=== PATIENT | male | born 1955 | race Caucasian/White ===

== ENCOUNTER 2016-11-17 15:45 | Emergency (ER) | payer MEDICAID | END 2016-11-17 17:43 | disposition left against medical advice (07) | LOC: JP.ED 15:45 | DX: Z53.21 Procedure and treatment not carried out due to patient leaving prior to being seen by health care provider (principal) ==

== ENCOUNTER 2021-06-13 11:46 | Inpatient (IN) | payer MEDICARE ==
[2021-06-13] MEDS ORDERED: Acetaminophen 325 MG Tab PO PRN ×2 (12:29→17:04)
[2021-06-13] MEDS ORDERED: REMDESIVIR 200 MG in Sodium Chloride 0.9% 250 ML IV ONE ×2 (12:29→13:15)
[2021-06-13] MEDS ORDERED: Dexamethasone 4 MG/ML SDV IVPUSH SCH (12:30)
--- NOTE | 2021-06-13 12:44 | EDM.PDOC ---
ED HPI GENERAL MEDICAL PROBLEM - General Chief Complaint: Respiratory Problem Stated Complaint: MEDICAL COVID POSITIVE Time Seen by Provider: 06/13/21 12:16 Source of Information: Reports: Patient, RN Notes Reviewed History Limitations: Reports: No Limitations - History of Present Illness INITIAL COMMENTS - FREE TEXT/NARRATIVE: 66-year-old male presents emergency department today via EMS services for increasing shortness of breath, he was recently diagnosed with COVID-19 yesterday thinks he may have had a cough for couple of days however it is difficult to assess because he does have a history of interstitial lung disease from exposure at work. He is not had any fevers no nausea vomiting no chest pain. Normally does not use oxygen was found to be hypoxic by the EMS crew he remains hypoxic in the emergency department. - Related Data Allergies Allergy/AdvReac Type Severity Reaction Status Date / Time No Known Allergies Allergy Verified 06/13/21 12:04 Home Meds: Home Meds Aspirin [Low Dose Aspirin EC] 81 mg PO DAILY 04/30/14 [History] Cholecalciferol (Vitamin D3) [Vitamin D3] 1,000 units PO DAILY 04/30/14 [History] Insulin Aspart [Novolog Flexpen] 28 units SQ QID 04/30/14 [History] Insulin Glargine,Hum.Rec.Anlog [Lantus Solostar] 46 units SUBCUT QAM 04/30/14 [History] Mometasone/Formoterol [Dulera 200-5 MCG] 2 puff INH BID 04/30/14 [History] ramipriL [Altace] 5 mg PO DAILY 04/30/14 [History] Insulin Glarg,Human.Rec.Analog [Lantus Solostar] 74 unit SQ QPM 08/18/14 [History] Albuterol/Ipratropium [Combivent Respimat] 1 puff IH Q4HR PRN 04/13/21 [History] Albuterol/Ipratropium [DuoNeb 3.0-0.5 MG/3 ML] 3 ml IH Q4HR PRN 04/13/21 [History] Azelastine [Astelin Nasal Soln] 2 inhalation ANA BID 04/13/21 [History] Dulaglutide [Trulicity] 3 mg SQ .WEEKLY 04/13/21 [History] EPINEPHrine [Epipen] 0.3 mg IM ASDIRECTED 04/13/21 [History] Meclizine [Antivert] 25 mg PO TID 04/13/21 [History] Triamcinolone Acetonide [Kenalog 0.1% Crm] 1 film TOP TID PRN 04/13/21 [History] allopurinoL [Zyloprim] 100 mg PO DAILY 04/13/21 [History] rOPINIRole [Requip] 0.5 mg PO BEDTIME 04/13/21 [History] Insulin Lispro [HumaLOG] 25 unit SQ ASDIRECTED 06/13/21 [History] Past Medical History HEENT History: Reports: Impaired Vision Respiratory History: Reports: Interstitial Lung Disease, Sleep Apnea Other Respiratory History: cpap Musculoskeletal History: Reports: Back Pain, Chronic, Gout Endocrine/Metabolic History: Reports: Diabetes, Type II, Obesity/BMI 30+ - Infectious Disease History Infectious Disease History: Reports: Chicken Pox, Measles, Novel Coronavirus, Pertussis (Whooping Cough) - Past Surgical History Head Surgeries/Procedures: Reports: None HEENT Surgical History: Reports: Cataract Surgery Respiratory Surgical History: Reports: None Endocrine Surgical History: Reports: None Musculoskeletal Surgical History: Reports: Carpal Tunnel Dermatological Surgical History: Reports: None Social & Family History - Tobacco Use Tobacco Use Status *Q: Never Tobacco User Second Hand Smoke Exposure: No - Caffeine Use Caffeine Use: Reports: None - Recreational Drug Use Recreational Drug Use: No ED ROS GENERAL - Review of Systems Review Of Systems: See Below Constitutional: Reports: No Symptoms HEENT: Reports: No Symptoms Respiratory: Reports: Shortness of Breath, Cough Cardiovascular: Reports: Dyspnea on Exertion GI/Abdominal: Reports: No Symptoms ED EXAM, GENERAL - Physical Exam Exam: See Below Exam Limited By: No Limitations General Appearance: Alert, WD/WN, No Apparent Distress Respiratory/Chest: No Respiratory Distress, Lungs Clear, Normal Breath Sounds, No Accessory Muscle Use, Chest Non-Tender Cardiovascular: Regular Rate, Rhythm, No Murmur GI/Abdominal: Soft, Non-Tender Course - Vital Signs Last Recorded V/S: Last Vital Signs Temp 98.8 F 06/13/21 13:55 Pulse 79 06/13/21 13:55 Resp 35 H 06/13/21 13:55 BP 123/59 L 06/13/21 13:55 Pulse Ox 94 L 06/13/21 13:55 - Orders/Labs/Meds Orders: Active Orders 24 hr Category Date Time Status HEPATIC FUNCTION PANEL,HFP [CHEM] DAILY Lab 06/14/21 12:30 Ordered HEPATIC FUNCTION PANEL,HFP [CHEM] DAILY Lab 06/15/21 12:30 Ordered HEPATIC FUNCTION PANEL,HFP [CHEM] DAILY Lab 06/16/21 12:30 Ordered HEPATIC FUNCTION PANEL,[facility] [CHEM] DAILY Lab 06/17/21 12:30 Ordered HEPATIC FUNCTION PANEL,HFP [CHEM] DAILY Lab 06/18/21 12:30 Ordered Acetaminophen [TylenoL] Med 06/13/21 12:29 Active 650 mg PO Q4H PRN Enoxaparin [Lovenox] Med 06/13/21 12:45 Active 40 mg SUBCUT DAILY dexAMETHasone [Decadron] Med 06/13/21 12:30 Active 6 mg IVPUSH DAILY Isolation [COMM] Stat Oth 06/13/21 12:29 Ordered Medication Orders Acetaminophen (Acetaminophen 325 Mg Tab) 650 mg PO Q4H PRN PRN Reason: Fever Greater Than 101 Last Admin: 06/13/21 13:47 Dose: 650 mg Documented by: PIA Dexamethasone (Dexamethasone 4 Mg/Ml Sdv) 6 mg IVPUSH DAILY IVANA Stop: 06/22/21 09:01 Last Admin: 06/13/21 13:48 Dose: 6 mg Documented by: PIA Enoxaparin Sodium (Enoxaparin 40 Mg/0.4 Ml Syringe) 40 mg SUBCUT DAILY [facility] Last Admin: 06/13/21 13:57 Dose: 40 mg Documented by: PIA Labs: Laboratory Tests 06/13/21 06/13/21 06/13/21 Range/Units 12:40 12:40 12:40 WBC 8.6 (4.5-11.0) K/uL RBC 4.07 L (4.30-5.90) M/uL Hgb 13.2 (12.0-15.0) g/dL Hct 37.7 L (40.0-54.0) % MCV 93 (80-98) fL MCH 32 H (27-31) pg MCHC 35 (32-36) % Plt Count 171 (150-400) K/uL Neut % (Auto) 89.1 H (36-66) % Lymph % (Auto) 5.8 L (24-44) % [place] % (Auto) 4.9 (2-6) % Eos % (Auto) 0.0 L (2-4) % Baso % (Auto) 0.2 (0-1) % Sodium 133 L (140-148) mmol/L Potassium 4.7 (3.6-5.2) mmol/L Chloride 97 L (100-108) mmol/L Carbon Dioxide 24 (21-32) mmol/L Anion Gap 16.7 H (5.0-14.0) mmol/L BUN 41 H D (7-18) mg/dL Creatinine 1.8 H (0.8-1.3) mg/dL Est Cr Clr Drug Dosing 48.90 mL/min Estimated GFR (MDRD) 38 L (>60) Glucose 131 H (74-106) mg/dL Lactic Acid 1.8 (0.4-2.0) mmol/L Calcium 8.2 L (8.5-10.1) mg/dL Total Bilirubin 0.6 (0.2-1.0) mg/dL Direct Bilirubin 0.19 (0.0-0.2) mg/dL Indirect Bilirubin 0.41 AST 58 H D (15-37) U/L ALT 57 (12-78) U/L Alkaline Phosphatase 82 (46-116) U/L C-Reactive Protein 4.81 H (0.0-0.3) mg/dL Total Protein 7.5 (6.4-8.2) g/dL Albumin 3.1 L (3.4-5.0) g/dL Globulin 4.4 H (2.3-3.5) g/dL Albumin/Globulin Ratio 0.7 L (1.2-2.2) Procalcitonin ng/mL 06/13/21 Range/Units 12:40 WBC (4.5-11.0) K/uL RBC (4.30-5.90) M/uL Hgb (12.0-15.0) g/dL Hct (40.0-54.0) % MCV (80-98) fL MCH (27-31) pg MCHC (32-36) % Plt Count (150-400) K/uL Neut % (Auto) (36-66) % Lymph % (Auto) (24-44) % [place] % (Auto) (2-6) % Eos % (Auto) (2-4) % Baso % (Auto) (0-1) % Sodium (140-148) mmol/L Potassium (3.6-5.2) mmol/L Chloride (100-108) mmol/L Carbon Dioxide (21-32) mmol/L Anion Gap (5.0-14.0) mmol/L BUN (7-18) mg/dL Creatinine (0.8-1.3) mg/dL Est Cr Clr Drug Dosing mL/min Estimated GFR (MDRD) (>60) Glucose (74-106) mg/dL Lactic Acid (0.4-2.0) mmol/L Calcium (8.5-10.1) mg/dL Total Bilirubin (0.2-1.0) mg/dL Direct Bilirubin (0.0-0.2) mg/dL Indirect Bilirubin AST (15-37) U/L ALT (12-78) U/L Alkaline Phosphatase (46-116) U/L C-Reactive Protein (0.0-0.3) mg/dL Total Protein (6.4-8.2) g/dL Albumin (3.4-5.0) g/dL Globulin (2.3-3.5) g/dL Albumin/Globulin Ratio (1.2-2.2) Procalcitonin 0.46 ng/mL Meds: Medications Generic Name Dose Route Start Last Admin Trade Name Freq PRN Reason Stop Dose Admin Acetaminophen 650 mg 06/13/21 12:29 06/13/21 13:47 Acetaminophen 325 Mg Tab PO 650 mg Q4H PRN Administration Fever Greater Than 101 Dexamethasone 6 mg 06/13/21 12:30 06/13/21 13:48 Dexamethasone 4 Mg/Ml Sdv IVPUSH 06/22/21 09:01 6 mg DAILY IVANA Administration Enoxaparin Sodium 40 mg 06/13/21 12:45 06/13/21 13:57 Enoxaparin 40 Mg/0.4 Ml Syringe SUBCUT 40 mg DAILY IVANA Administration Discontinued Medications Generic Name Dose Route Start Last Admin Trade Name Freq PRN Reason Stop Dose Admin Remdesivir 200 mg/ Sodium 250 mls @ 250 mls/hr 06/13/21 13:15 06/13/21 13:51 Chloride IV 06/13/21 14:14 250 mls/hr ONETIME ONE Administration Departure - Departure Time of Disposition: 14:42 Disposition: Admitted As Inpatient 67 Condition: Fair Clinical Impression: COVID-19 - Discharge Information Referrals: PCP,None [Primary Care Provider] - Forms: ED Department Discharge Sepsis Event Note (ED) - Evaluation Sepsis Screening Result: Possible Sepsis Risk - Focused Exam Vital Signs: Vital Signs Temp Pulse Resp BP Pulse Ox 06/13/21 13:55 98.8 F 79 35 H 123/59 L 94 L 06/13/21 12:04 91 L 06/13/21 11:54 99.4 F 94 22 H 123/68 90 L 06/13/21 11:51 99.4 F 94 22 H 123/68 90 L - My Orders Last 24 Hours: My Active Orders 06/13/21 12:29 Acetaminophen [TylenoL] 650 mg PO Q4H PRN Isolation [COMM] Stat 06/13/21 12:30 dexAMETHasone [Decadron] 6 mg IVPUSH DAILY 06/13/21 12:45 Enoxaparin [Lovenox] 40 mg SUBCUT DAILY 06/14/21 12:30 HEPATIC FUNCTION PANEL,HFP [CHEM] DAILY 06/15/21 12:30 HEPATIC FUNCTION PANEL,HFP [CHEM] DAILY 06/16/21 12:30 HEPATIC FUNCTION PANEL,HFP [CHEM] DAILY 06/17/21 12:30 HEPATIC FUNCTION PANEL,HFP [CHEM] DAILY 06/18/21 12:30 HEPATIC FUNCTION PANEL,HFP [CHEM] DAILY - Assessment/Plan Last 24 Hours: My Active Orders 06/13/21 12:29 Acetaminophen [TylenoL] 650 mg PO Q4H PRN Isolation [COMM] Stat 06/13/21 12:30 dexAMETHasone [Decadron] 6 mg IVPUSH DAILY 06/13/21 12:45 Enoxaparin [Lovenox] 40 mg SUBCUT DAILY 06/14/21 12:30 HEPATIC FUNCTION PANEL,HFP [CHEM] DAILY 06/15/21 12:30 HEPATIC FUNCTION PANEL,HFP [CHEM] DAILY 06/16/21 12:30 HEPATIC FUNCTION PANEL,HFP [CHEM] DAILY 06/17/21 12:30 HEPATIC FUNCTION PANEL,HFP [CHEM] DAILY 06/18/21 12:30 HEPATIC FUNCTION PANEL,HFP [CHEM] DAILY Plan: Assessment Acuity = acute Site and laterality = viral syndrome Etiology = COVID-19 Manifestations = hypoxia Location of injury = Home Lab values = CBC unremarkable creatinine elevated 1.8 consistent with acute renal failure stage G3 B lactic acid normal 1.8 CRP elevated 4.81 procalcitonin 0.46 chest x-ray shows pneumonitis versus infiltrate Plan Call discussed case hospitalist on-call, agreed to come evaluate the patient emergency department for admission This note was dictated using [employer] voice recognition software please call with any questions on syntax or grammar.
[2021-06-13] MEDS ORDERED: Enoxaparin 40 MG/0.4 ML Syringe SUBCUT SCH (12:45)
--- NOTE | 2021-06-13 13:06 | CR ---
CHEST: Portable 06/13/2021 at 12:58 PM CLINICAL HISTORY:Respiratory failure COMPARISON:None FINDINGS: Heart size and pulmonary vascular normal. There is some patchy infiltrate in both lower lung marti. This may represent patchy pneumonia or pneumonitis. There are no pleural effusions Impression: Patchy bibasal infiltrates or pneumonitis
--- NOTE | 2021-06-13 16:12 | PCM.HP.2 ---
H&P History of Present Illness - General Date of Service: 06/13/21 Admit Problem/Dx: Admission Diagnosis/Problem Admission Diagnosis/Problem Pneumonia Source of Information: Patient, Provider History Limitations: Reports: No Limitations - History of Present Illness Initial Comments - Free Text/Narative: CC: I was so weak HPI: Colton presents to the emergency room today with weakness and shortness of breath. He has been ill for about 10 days with sinus congestion, cough and now progressive shortness of breath. Over the last 24 hours he has developed weakness and had a fall last night and another one today. He has not had much of an appetite and has had very little to eat or drink in the last couple of days. He did have a fever with a drenching sweat last night but prior to that had not had any subjective fevers or chills. He has not had nausea, vomiting, diarrhea or abdominal pain. No headache or myalgias. He is not aware of an obvious sick contact but was in [place] for an angiogram about 1 week prior to onset of symptoms. He tested positive for Covid yesterday and was prescribed doxycycline and prednisone and had 1 dose of the steroids and 2 doses of antibiotics. He has been taking his medications as prescribed. Work-up in the emergency room revealed hypoxia necessitating 2 L of supplemental oxygen. D-dimer and CRP are moderately elevated. He will be admitted for management of Covid pneumonia with hypoxic respiratory failure. - Related Data Allergies/Adverse Reactions: Allergies Allergy/AdvReac Type Severity Reaction Status Date / Time No Known Allergies Allergy Verified 06/13/21 12:04 Home Medications: Home Meds Aspirin [Low Dose Aspirin EC] 81 mg PO DAILY 04/30/14 [History] Cholecalciferol (Vitamin D3) [Vitamin D3] 1,000 units PO DAILY 04/30/14 [History] Insulin Glargine,Hum.Rec.Anlog [Lantus Solostar] 46 units SUBCUT QAM 04/30/14 [History] Mometasone/Formoterol [Dulera 200-5 MCG] 2 puff INH BID 04/30/14 [History] ramipriL [Altace] 5 mg PO DAILY 04/30/14 [History] Insulin Glarg,Human.Rec.Analog [Lantus Solostar] 74 unit SQ QPM 08/18/14 [History] Albuterol/Ipratropium [Combivent Respimat] 1 puff IH Q4HR PRN 04/13/21 [History] Albuterol/Ipratropium [DuoNeb 3.0-0.5 MG/3 ML] 3 ml IH Q4HR PRN 04/13/21 [History] Azelastine [Astelin Nasal Soln] 2 inhalation ANA BID 04/13/21 [History] Dulaglutide [Trulicity] 3 mg SQ .WEEKLY 04/13/21 [History] EPINEPHrine [Epipen] 0.3 mg IM ASDIRECTED 04/13/21 [History] Meclizine [Antivert] 25 mg PO TID 04/13/21 [History] Triamcinolone Acetonide [Kenalog 0.1% Crm] 1 film TOP TID PRN 04/13/21 [History] allopurinoL [Zyloprim] 100 mg PO DAILY 04/13/21 [History] rOPINIRole [Requip] 0.5 mg PO BEDTIME 04/13/21 [History] Clopidogrel [Plavix] 75 mg PO DAILY 06/13/21 [History] Insulin Lispro [HumaLOG] 28 unit SQ ASDIRECTED 06/13/21 [History] Past Medical History HEENT History: Reports: Impaired Vision Respiratory History: Reports: Interstitial Lung Disease, Sleep Apnea Other Respiratory History: cpap Musculoskeletal History: Reports: Back Pain, Chronic, Gout Endocrine/Metabolic History: Reports: Diabetes, Type II, Obesity/BMI 30+ - Infectious Disease History Infectious Disease History: Reports: Chicken Pox, Measles, Novel Coronavirus, Pertussis (Whooping Cough) - Past Surgical History Head Surgeries/Procedures: Reports: None HEENT Surgical History: Reports: Cataract Surgery Respiratory Surgical History: Reports: None Endocrine Surgical History: Reports: None Musculoskeletal Surgical History: Reports: Carpal Tunnel Dermatological Surgical History: Reports: None Social & Family History - Family History Cardiac: Reports: CAD (Mother) Oncologic: Reports: Other (See Below) (Dad had cancer) - Tobacco Use Tobacco Use Status *Q: Never Tobacco User Second Hand Smoke Exposure: No - Caffeine Use Caffeine Use: Reports: None - Alcohol Use Alcohol Use History: No Alcohol Use in Last Twelve Months: No - Recreational Drug Use Recreational Drug Use: No H&P Review of Systems - Review of Systems: Review Of Systems: See Below Free Text/Narrative: A complete 12 point review of systems was obtained. Pertinent positives and negatives are noted in the history of present illness. All other systems were reviewed and were negative except as noted. Exam - Exam Exam: See Below - Vital Signs Vital Signs: Last Vital Signs Temp 36.6 C 06/13/21 16:09 Pulse 72 06/13/21 16:09 Resp 17 06/13/21 16:09 BP 123/70 06/13/21 16:09 Pulse Ox 92 L 06/13/21 16:09 Weight: 119.295 kg - Exam Quality Assessment: Supplemental Oxygen General: Alert, Oriented, Cooperative. No: Mild Distress HEENT: Conjunctiva Clear. No: Mucosa Moist & Kohler, Scleral Icterus Neck: Supple, Trachea Midline. No: JVD Lungs: Normal Respiratory Effort, Crackles (Mild diffuse especially in the lower half of both lungs) Cardiovascular: Regular Rate, Regular Rhythm. No: Systolic Murmur GI/Abdominal Exam: Normal Bowel Sounds, Soft, Non-Tender, No Distention Extremities: No Pedal Edema. No: Increased Warmth Skin: Warm, Dry Neuro Extensive - Mental Status: Alert, Oriented x3, Nl Response to Commands Neuro Extensive - Motor, Sensory, Reflexes: No: Dysarthria, Abnormal Motor, Trem or Psychiatric: Alert, Normal Affect - Patient Data Lab Results Last 24 hrs: Laboratory Results - last 24 hr 06/13/21 06/13/21 06/13/21 Range/Units 12:10 12:40 12:40 WBC 8.6 (4.5-11.0) K/uL RBC 4.07 L (4.30-5.90) M/uL Hgb 13.2 (12.0-15.0) g/dL Hct 37.7 L (40.0-54.0) % MCV 93 (80-98) fL MCH 32 H (27-31) pg MCHC 35 (32-36) % Plt Count 171 (150-400) K/uL Neut % (Auto) 89.1 H (36-66) % Lymph % (Auto) 5.8 L (24-44) % [place] % (Auto) 4.9 (2-6) % Eos % (Auto) 0.0 L (2-4) % Baso % (Auto) 0.2 (0-1) % D-Dimer, Quantitative 940.71 H (0.0-500.0) ng/mL Sodium 133 L (140-148) mmol/L Potassium 4.7 (3.6-5.2) mmol/L Chloride 97 L (100-108) mmol/L Carbon Dioxide 24 (21-32) mmol/L Anion Gap 16.7 H (5.0-14.0) mmol/L BUN 41 H D (7-18) mg/dL Creatinine 1.8 H (0.8-1.3) mg/dL Est Cr Clr Drug Dosing 48.90 mL/min Estimated GFR (MDRD) 38 L (>60) Glucose 131 H (74-106) mg/dL Lactic Acid (0.4-2.0) mmol/L Calcium 8.2 L (8.5-10.1) mg/dL Total Bilirubin 0.6 (0.2-1.0) mg/dL Direct Bilirubin 0.19 (0.0-0.2) mg/dL Indirect Bilirubin 0.41 AST 58 H D (15-37) U/L ALT 57 (12-78) U/L Alkaline Phosphatase 82 (46-116) U/L C-Reactive Protein 4.81 H (0.0-0.3) mg/dL Total Protein 7.5 (6.4-8.2) g/dL Albumin 3.1 L (3.4-5.0) g/dL Globulin 4.4 H (2.3-3.5) g/dL Albumin/Globulin Ratio 0.7 L (1.2-2.2) Procalcitonin ng/mL 06/13/21 06/13/21 Range/Units 12:40 12:40 WBC (4.5-11.0) K/uL RBC (4.30-5.90) M/uL Hgb (12.0-15.0) g/dL Hct (40.0-54.0) % MCV (80-98) fL MCH (27-31) pg MCHC (32-36) % Plt Count (150-400) K/uL Neut % (Auto) (36-66) % Lymph % (Auto) (24-44) % [place] % (Auto) (2-6) % Eos % (Auto) (2-4) % Baso % (Auto) (0-1) % D-Dimer, Quantitative (0.0-500.0) ng/mL Sodium (140-148) mmol/L Potassium (3.6-5.2) mmol/L Chloride (100-108) mmol/L Carbon Dioxide (21-32) mmol/L Anion Gap (5.0-14.0) mmol/L BUN (7-18) mg/dL Creatinine (0.8-1.3) mg/dL Est Cr Clr Drug Dosing mL/min Estimated GFR (MDRD) (>60) Glucose (74-106) mg/dL Lactic Acid 1.8 (0.4-2.0) mmol/L Calcium (8.5-10.1) mg/dL Total Bilirubin (0.2-1.0) mg/dL Direct Bilirubin (0.0-0.2) mg/dL Indirect Bilirubin AST (15-37) U/L ALT (12-78) U/L Alkaline Phosphatase (46-116) U/L C-Reactive Protein (0.0-0.3) mg/dL Total Protein (6.4-8.2) g/dL Albumin (3.4-5.0) g/dL Globulin (2.3-3.5) g/dL Albumin/Globulin Ratio (1.2-2.2) Procalcitonin 0.46 ng/mL Result Diagrams: 06/13/21 12:40 06/13/21 12:40 Imaging Impressions Last 24 hrs: Chest [id number] personally reviewed-there are some subtle lower lobe patchy infiltrates. Heart size is normal. No obvious mass or effusion. Sepsis Event Note - Evaluation Sepsis Screening Result: Possible Sepsis Risk - Focused Exam Vital Signs: Vital Signs Temp Pulse Resp BP Pulse Ox 06/13/21 16:09 36.6 C 72 17 123/70 92 L 06/13/21 15:42 71 17 116/60 93 L 06/13/21 14:49 75 31 H 113/60 91 L 06/13/21 13:55 37.1 C 79 35 H 123/59 L 94 L 06/13/21 12:04 91 L 06/13/21 11:54 37.4 C 94 22 H 123/68 90 L 06/13/21 11:51 37.4 C 94 22 H 123/68 90 L *Q Meaningful Use (ADM) - VTE Risk Assess *Q Each Risk Factor Represents 1 Point: Obesity ( BMI > 25 kg/m2), Abnormal P ulmonary Function (COPD) Total Score 1 Point Risk Factors: 2 Each Risk Factor Represents 2 Points: Age 60 - 74 Years Total Score 2 Point Risk Factors: 2 Each Risk Factor Represents 3 Points: None Total Score 3 Point Risk Factors: 0 Each Risk Factor Represents 5 Points: None Total Score 5 Point Risk Factors: 0 Venous Thromboembolism Risk Factor Score *Q: 4 - Problem List (1) Pneumonia due to COVID-19 virus SNOMED Code(s): 276507975536220266 ICD Code: U07.1 - COVID-19; J12.82 - PNEUMONIA DUE TO CORONAVIRUS DISEASE 20 19 Status: Acute Current Visit: Yes (2) Acute respiratory failure with hypoxia SNOMED Code(s): 87621231, 691007660 ICD Code: J96.01 - ACUTE RESPIRATORY FAILURE WITH HYPOXIA Status: Acute Current Visit: Yes (3) Insulin dependent diabetes mellitus SNOMED Code(s): 91951444 ICD Code: WFS1266 - Status: Chronic Current Visit: Yes (4) Obesity (BMI 30.0-34.9) SNOMED Code(s): 669162338110065 ICD Code: E66.9 - OBESITY, UNSPECIFIED Status: Chronic Current Visit: Yes (5) Coronary artery disease SNOMED Code(s): 11366679 ICD Code: I25.10 - ATHSCL HEART DISEASE OF [place] CORONARY ARTERY W/O ANG PCTRS Status: Chronic Current Visit: Yes Qualifiers: Coronary Disease-Associated Artery/Lesion type: [place] artery [place] vs. transplanted heart: [place] heart Associated angina: without angina Qualified Code(s): I25.10 - Atherosclerotic heart disease of [place] coronary artery without angina pectoris Problem List Initiated/Reviewed/Updated: Yes Orders Last 24hrs: Active Orders 24 hr Category Date Time Status Patient Status Manage Transfer [TRANSFER] Routine ADT 06/13/21 16:03 Ordered Acetaminophen [TylenoL] Med 06/13/21 12:29 Active 650 mg PO Q4H PRN Enoxaparin [Lovenox] Med 06/13/21 12:45 Active 40 mg SUBCUT DAILY dexAMETHasone [Decadron] Med 06/13/21 12:30 Active 6 mg IVPUSH DAILY Isolation [COMM] Stat Oth 06/13/21 12:29 Ordered Resuscitation Status Routine Resus Stat 06/13/21 16:05 Ordered Medication Orders Acetaminophen (Acetaminophen 325 Mg Tab) 650 mg PO Q4H PRN PRN Reason: Fever Greater Than 101 Last Admin: 06/13/21 13:47 Dose: 650 mg Documented by: PIA Dexamethasone (Dexamethasone 4 Mg/Ml Sdv) 6 mg IVPUSH DAILY [facility] Stop: 06/22/21 09:01 Last Admin: 06/13/21 13:48 Dose: 6 mg Documented by: PIA Enoxaparin Sodium (Enoxaparin 40 Mg/0.4 Ml Syringe) 40 mg SUBCUT DAILY [facility] Last Admin: 06/13/21 13:57 Dose: 40 mg Documented by: PIA Assessment/Plan Comment:: ASSESSMENT AND PLAN - COVID-19 pneumonia-complicated by acute respiratory failure with hypoxia. Symptom onset roughly 10 days ago with manifestations including sinus congestion and now progressive cough and shortness of breath along with weakness. Mildly hypoxic. Fortunately CRP and D-dimer are only mildly elevated. Risk factors for progression include obesity and diabetes. He is not vaccinated. -Dexamethasone 6 mg daily (day 1) -Remdesivir x5 days -Enoxaparin every 24 hours -Recheck CRP and D-dimer every 2 to 3 days -Isolation precautions Insulin-dependent diabetes mellitus-patient normally uses combination of twice daily basal insulin and mealtime insulin. He is not eating well but he is on steroids so hopefully these will balance out his blood sugar control. -Continue regular long-acting insulin -Reduced dose of mealtime insulin until appetite improves -Medium dose sliding scale supplementation Coronary artery disease-recent stenting has improved his dyspnea some. -Continue medical management Maintenance issues - -DVT prophylaxis-enoxaparin -GI prophylaxis-not indicated -Nutrition-diabetic -Sauer catheter-not indicated CODE STATUS -full code Admission justification -this patient will be admitted for inpatient services and is medically appropriate meeting medical necessity for inpatient admission as outlined in my documentation. I reasonably expect the patient will require inpatient services that span a period time over 2 midnights. I reasonably expect this patient to be discharged or transferred within 96 hours [facility]. Disposition -I anticipate discharge home after the hospital stay Primary care physician -Dr Neeraj De Santiago M.D. - Mortality Measure Prognosis:: Good
[2021-06-13] MEDS ORDERED: Ondansetron 4 MG/2 ML SDV IV PRN (17:04)
[2021-06-13] MEDS ORDERED: Ondansetron 4 MG Tab.DIS PO PRN (17:04)
[2021-06-13] MEDS ORDERED: LORazepam 2 MG/ML SDV IVPUSH PRN (17:04)
[2021-06-13] MEDS ORDERED: Melatonin 3 MG Tab PO PRN (17:04)
[2021-06-13] MEDS ORDERED: Albuterol 8 GM Inhaler INH PRN (17:04)
[2021-06-13] MEDS ORDERED: Magnesium Hydroxide 400 MG/5 ML Susp 30 ML Cup PO PRN (17:04)
[2021-06-13] MEDS: Insulin Lispro 100 Unit/ML 3 ML KwikPen SUBCUT SCH ×3 (18:11→20:56)
[2021-06-13] MEDS: Formoterol/Mometasone 200-5 MCG 8.8 GM Inhaler IH SCH (20:59)
[2021-06-13] MEDS: rOPINIRole 0.5 MG Tab PO SCH (20:59)
[2021-06-13] MEDS: Azelastine Nasal Soln 30 ML Spray Bottle NASBOTH SCH (21:00)
[2021-06-13] MEDS: Insulin Glargine,Human Rec. Analog 100 Units/ML 3 ML Pen SUBCUT SCH (21:02)
[2021-06-13] MEDS: Magnesium Oxide 400 MG Tab PO SCH (22:01)
[2021-06-14] MEDS: Formoterol/Mometasone 200-5 MCG 8.8 GM Inhaler IH SCH ×2 (07:42→20:05)
[2021-06-14] MEDS: Azelastine Nasal Soln 30 ML Spray Bottle NASBOTH SCH ×2 (08:36→20:04)
[2021-06-14] MEDS: Clopidogrel 75 MG Tab PO SCH (08:37)
[2021-06-14] MEDS: Aspirin 81 MG Tab.EC PO SCH (08:37)
[2021-06-14] MEDS: Cholecalciferol (Vitamin D3) 25 MCG Tab PO SCH (08:38)
[2021-06-14] MEDS: Allopurinol 100 MG Tab PO SCH (08:38)
[2021-06-14] MEDS: Insulin Lispro 100 Unit/ML 3 ML KwikPen SUBCUT SCH ×7 (08:41→20:04)
[2021-06-14] MEDS: Insulin Glargine,Human Rec. Analog 100 Units/ML 3 ML Pen SUBCUT SCH ×2 (08:44→21:47)
[2021-06-14] MEDS ORDERED: Patient's Own Medication 1 Each SUBCUT SCH (10:00)
[2021-06-14] MEDS: TRULICITY 3 MG SUBCUT SCH (10:40)
[2021-06-14] MEDS: Azithromycin 250 MG Tab PO SCH (10:42)
[2021-06-14] MEDS: Dexamethasone 4 MG/ML SDV IVPUSH SCH (13:32)
[2021-06-14] MEDS: amLODIPine 5 MG Tab PO SCH (13:38)
[2021-06-14] MEDS: Montelukast 10 MG Tab PO SCH (13:38)
[2021-06-14] MEDS: Ezetimibe 10 MG Tab PO SCH (13:38)
[2021-06-14] MEDS: Metoprolol Succinate 25 MG Tab.ER PO SCH (13:38)
[2021-06-14] MEDS: Enoxaparin 40 MG/0.4 ML Syringe SUBCUT SCH (13:54)
[2021-06-14] MEDS: REMDESIVIR 100 MG in Sodium Chloride 0.9% 100 ML IV SCH (13:54)
--- NOTE | 2021-06-14 14:36 | PCM.PN ---
- General Info Date of Service: 06/14/21 Subjective Update: No acute events overnight. Feels about the same as yesterday. Short of breath especially with activity. He reports nasal congestion and postnasal drip which is the most annoying symptom. Occasional cough. Moderate elevation of blood sugars and appetite has been improving. No fevers. Requiring 4 L of oxygen. Functional Status: Reports: Pain Controlled, Tolerating Diet - Review of Systems General: Denies: Fever Pulmonary: Reports: Shortness of Breath - Patient Data Vitals - Most Recent: Last Vital Signs Temp 36.8 C 06/14/21 10:53 Pulse 93 06/14/21 13:38 Resp 22 H 06/14/21 10:53 BP 131/68 06/14/21 13:38 Pulse Ox 90 L 06/14/21 12:11 Weight - Most Recent: 119.295 kg I&O - Last 24 Hours: Intake & Output 06/13/21 06/14/21 06/14/21 22:59 06:59 14:59 Intake Total 240 1790 Balance 240 1790 Lab Results Last 24 Hours: Laboratory Results - last 24 hr 06/13/21 06/14/21 06/14/21 Range/Units 12:10 05:20 05:20 WBC 7.9 (4.5-11.0) K/uL RBC 4.01 L (4.30-5.90) M/uL Hgb 12.9 (12.0-15.0) g/dL Hct 37.0 L (40.0-54.0) % MCV 92 (80-98) fL MCH 32 H (27-31) pg MCHC 35 (32-36) % Plt Count 187 (150-400) K/uL D-Dimer, Quantitative 940.71 H (0.0-500.0) ng/mL Sodium (140-148) mmol/L Potassium (3.6-5.2) mmol/L Chloride (100-108) mmol/L Carbon Dioxide (21-32) mmol/L Anion Gap (5.0-14.0) mmol/L BUN (7-18) mg/dL Creatinine (0.8-1.3) mg/dL Est Cr Clr Drug Dosing mL/min Estimated GFR (MDRD) (>60) Glucose (74-106) mg/dL POC Glucose (74-106) mg/dL Calcium (8.5-10.1) mg/dL Total Bilirubin (0.2-1.0) mg/dL AST (15-37) U/L ALT (12-78) U/L Alkaline Phosphatase (46-116) U/L Total Protein (6.4-8.2) g/dL Albumin (3.4-5.0) g/dL Globulin (2.3-3.5) g/dL Albumin/Globulin Ratio (1.2-2.2) Procalcitonin 0.56 ng/mL 06/14/21 06/14/21 06/14/21 Range/Units 05:20 08:10 11:43 WBC (4.5-11.0) K/uL RBC (4.30-5.90) M/uL Hgb (12.0-15.0) g/dL Hct (40.0-54.0) % MCV (80-98) fL MCH (27-31) pg MCHC (32-36) % Plt Count (150-400) K/uL D-Dimer, Quantitative (0.0-500.0) ng/mL Sodium 134 L (140-148) mmol/L Potassium 4.6 (3.6-5.2) mmol/L Chloride 99 L (100-108) mmol/L Carbon Dioxide 24 (21-32) mmol/L Anion Gap 15.6 H (5.0-14.0) mmol/L BUN 40 H (7-18) mg/dL Creatinine 1.7 H (0.8-1.3) mg/dL Est Cr Clr Drug Dosing 51.78 mL/min Estimated GFR (MDRD) 41 L (>60) Glucose 242 H (74-106) mg/dL POC Glucose 196 H 233 H (74-106) mg/dL Calcium 8.0 L (8.5-10.1) mg/dL Total Bilirubin 0.5 (0.2-1.0) mg/dL AST 59 H (15-37) U/L ALT 57 (12-78) U/L Alkaline Phosphatase 80 (46-116) U/L Total Protein 7.0 (6.4-8.2) g/dL Albumin 2.7 L (3.4-5.0) g/dL Globulin 4.3 H (2.3-3.5) g/dL Albumin/Globulin Ratio 0.6 L (1.2-2.2) Procalcitonin ng/mL Med Orders - Current: Current Medications Acetaminophen (Acetaminophen 325 Mg Tab) 650 mg PO Q4H PRN PRN Reason: Pain (Mild 1-3)/fever Albuterol (Albuterol 8 Gm Inhaler) 0 gm INH Q2H PRN PRN Reason: Shortness of Breath Allopurinol (Allopurinol 100 Mg Tab) 100 mg PO DAILY [facility] Last Admin: 06/14/21 08:38 Dose: 100 mg Documented by: Amlodipine Besylate (Amlodipine 5 Mg Tab) 2.5 mg PO DAILY [facility] Last Admin: 06/14/21 13:38 Dose: 2.5 mg Documented by: Aspirin (Aspirin 81 Mg Tab.Ec) 81 mg PO DAILY [facility] Last Admin: 06/14/21 08:37 Dose: 81 mg Documented by: Azelastine HCl (Azelastine Nasal Soln 30 Ml [employer] Bottle) 0 ml NASBOTH BID [facility] Last Admin: 06/14/21 08:36 Dose: 2 spray Documented by: Azithromycin (Azithromycin 250 Mg Tab) 500 mg PO DAILY [facility] Stop: 06/18/21 09:01 Last Admin: 06/14/21 10:42 Dose: 500 mg Documented by: Benzonatate (Benzonatate 100 Mg Cap) 100 mg PO TID PRN PRN Reason: Cough Cholecalciferol (Cholecalciferol (Vitamin D3) 25 Mcg Tab) 25 mcg PO DAILY [facility] Last Admin: 06/14/21 08:38 Dose: 25 mcg Documented by: Clopidogrel Bisulfate (Clopidogrel 75 Mg Tab) 75 mg PO DAILY [facility] Last Admin: 06/14/21 08:37 Dose: 75 mg Documented by: Dexamethasone (Dexamethasone 4 Mg/Ml Sdv) 6 mg IVPUSH Q24H [facility] Stop: 06/22/21 14:01 Last Admin: 06/14/21 13:32 Dose: 6 mg Documented by: Ezetimibe (Ezetimibe 10 Mg Tab) 10 mg PO DAILY [facility] Last Admin: 06/14/21 13:38 Dose: 10 mg Documented by: Enoxaparin Sodium (Enoxaparin 40 Mg/0.4 Ml Syringe) 40 mg SUBCUT Q24H [facility] Last Admin: 06/14/21 13:54 Dose: 40 mg Documented by: Guaifenesin/Dextromethorphan (Guaifenesin/Dextromethorphan 100-10 Mg/5 Ml Soln 10 Ml Cup) 10 ml PO Q4H PRN PRN Reason: Cough Remdesivir 100 mg/ Sodium (Chloride) 100 mls @ 100 mls/hr IV Q24H [facility] Stop: 06/17/21 14:59 Last Admin: 06/14/21 13:54 Dose: 100 mls/hr Documented by: Insulin Glargine (Insulin Glargine,Human Rec. Analog 100 Units/Ml 3 Ml Pen) 74 units SUBCUT BEDTIME [facility] Last Admin: 06/13/21 21:02 Dose: 74 units Documented by: Insulin Glargine (Insulin Glargine,Human Rec. Analog 100 Units/Ml 3 Ml Pen) 46 units SUBCUT QAM [facility] Last Admin: 06/14/21 08:44 Dose: 46 units Documented by: Insulin Human Lispro (Insulin Lispro 100 Unit/Ml 3 Ml Kwikpen) 0 unit SUBCUT QIDACANDBED [facility]; Protocol Last Admin: 06/14/21 13:28 Dose: 4 units Documented by: Insulin Human Lispro (Insulin Lispro 100 Unit/Ml 3 Ml Kwikpen) 28 unit SUBCUT TIDMEALS [facility] Last Admin: 06/14/21 13:28 Dose: 28 units Documented by: Lorazepam (Lorazepam 2 Mg/Ml Sdv) 0.5 mg IVPUSH Q4H PRN PRN Reason: Nausea/Vomiting Magnesium Hydroxide (Magnesium Hydroxide 400 Mg/5 Ml Susp 30 Ml Cup) 30 ml PO Q12H PRN PRN Reason: Constipation Magnesium Oxide (Magnesium Oxide 400 Mg Tab) 400 mg PO BEDTIME [facility] Last Admin: 06/13/21 22:01 Dose: 400 mg Documented by: Melatonin (Melatonin 3 Mg Tab) 9 mg PO BEDTIME PRN PRN Reason: Sleep Metoprolol Succinate (Metoprolol Succinate 25 Mg Tab.Er) 25 mg PO DAILY [facility] Last Admin: 06/14/21 13:38 Dose: 25 mg Documented by: Mometasone Furoate/Formoterol Fumar (Formoterol/Mometasone 200-5 Mcg 8.8 Gm Inhaler) 2 puff IH BIDRT [facility] Last Admin: 06/14/21 07:42 Dose: 2 puff Documented by: Montelukast Sodium (Montelukast 10 Mg Tab) 10 mg PO DAILY [facility] Last Admin: 06/14/21 13:38 Dose: 10 mg Documented by: Ondansetron HCl (Ondansetron 4 Mg/2 Ml Sdv) 4 mg IV Q6H PRN PRN Reason: Nausea/Vomiting Ondansetron HCl (Ondansetron 4 Mg Tab.Dis) 4 mg PO Q6H PRN PRN Reason: Nausea able to take PO Pantoprazole Sodium (Pantoprazole 40 Mg Tab.Cr) 40 mg PO ACBREAKFAST [facility] Trulicity 3mg 0 each SUBCUT We@0900 [facility] Last Admin: 06/14/21 10:40 Dose: 1 each Documented by: Ramipril (Ramipril 2.5 Mg Cap) 5 mg PO DAILY [facility] Last Admin: 06/14/21 08:37 Dose: 5 mg Documented by: Ropinirole HCl (Ropinirole 0.5 Mg Tab) 0.5 mg PO BEDTIME [facility] Last Admin: 06/13/21 20:59 Dose: 0.5 mg Documented by: Senna/Docusate Sodium (Docusate Sodium/Sennosides 50-8.6 Mg Tab) 1 tab PO BID PRN PRN Reason: Constipation Discontinued Medications Acetaminophen (Acetaminophen 325 Mg Tab) 650 mg PO Q4H PRN PRN Reason: Fever Greater Than 101 Last Admin: 06/13/21 13:47 Dose: 650 mg Documented by: Dexamethasone (Dexamethasone 4 Mg/Ml Sdv) 6 mg IVPUSH DAILY [facility] Stop: 06/22/21 09:01 Last Admin: 06/13/21 13:48 Dose: 6 mg Documented by: Enoxaparin Sodium (Enoxaparin 40 Mg/0.4 Ml Syringe) 40 mg SUBCUT DAILY [facility] Last Admin: 06/13/21 13:57 Dose: 40 mg Documented by: Remdesivir 200 mg/ Sodium (Chloride) 250 mls @ 250 mls/hr IV ONETIME ONE Stop: 06/13/21 14:14 Last Admin: 06/13/21 13:51 Dose: 250 mls/hr Documented by: Insulin Human Lispro (Insulin Lispro 100 Unit/Ml 3 Ml Kwikpen) 18 unit SUBCUT TIDMEALS [facility] Last Admin: 06/14/21 08:43 Dose: 18 units Documented by: Patient Own Medication (Patient's Own Medication 1 Each) 0 each SUBCUT .WEEKLY IVANA - Exam Quality Assessment: Supplemental Oxygen General: Alert, Oriented, Cooperative, No Acute Distress Lungs: Normal Respiratory Effort. No: Wheezing Cardiovascular: Regular Rate, Regular Rhythm GI/Abdominal Exam: Soft, No Distention Extremities: No Pedal Edema. No: Increased Warmth Skin: Warm, Dry Psy/Mental Status: Alert, Normal Affect - Patient Data Lab Results Last 24 hrs: Laboratory Results - last 24 hr 06/13/21 06/14/21 06/14/21 Range/Units 12:10 05:20 05:20 WBC 7.9 (4.5-11.0) K/uL RBC 4.01 L (4.30-5.90) M/uL Hgb 12.9 (12.0-15.0) g/dL Hct 37.0 L (40.0-54.0) % MCV 92 (80-98) fL MCH 32 H (27-31) pg MCHC 35 (32-36) % Plt Count 187 (150-400) K/uL D-Dimer, Quantitative 940.71 H (0.0-500.0) ng/mL Sodium (140-148) mmol/L Potassium (3.6-5.2) mmol/L Chloride (100-108) mmol/L Carbon Dioxide (21-32) mmol/L Anion Gap (5.0-14.0) mmol/L BUN (7-18) mg/dL Creatinine (0.8-1.3) mg/dL Est Cr Clr Drug Dosing mL/min Estimated GFR (MDRD) (>60) Glucose (74-106) mg/dL POC Glucose (74-106) mg/dL Calcium (8.5-10.1) mg/dL Total Bilirubin (0.2-1.0) mg/dL AST (15-37) U/L ALT (12-78) U/L Alkaline Phosphatase (46-116) U/L Total Protein (6.4-8.2) g/dL Albumin (3.4-5.0) g/dL Globulin (2.3-3.5) g/dL Albumin/Globulin Ratio (1.2-2.2) Procalcitonin 0.56 ng/mL 11/10/3006/14/21 06/14/21 Range/Units 05:20 08:10 11:43 WBC (4.5-11.0) K/uL RBC (4.30-5.90) M/uL Hgb (12.0-15.0) g/dL Hct (40.0-54.0) % MCV (80-98) fL MCH (27-31) pg MCHC (32-36) % Plt Count (150-400) K/uL D-Dimer, Quantitative (0.0-500.0) ng/mL Sodium 134 L (140-148) mmol/L Potassium 4.6 (3.6-5.2) mmol/L Chloride 99 L (100-108) mmol/L Carbon Dioxide 24 (21-32) mmol/L Anion Gap 15.6 H (5.0-14.0) mmol/L BUN 40 H (7-18) mg/dL Creatinine 1.7 H (0.8-1.3) mg/dL Est Cr Clr Drug Dosing 51.78 mL/min Estimated GFR (MDRD) 41 L (>60) Glucose 242 H (74-106) mg/dL POC Glucose 196 H 233 H (74-106) mg/dL Calcium 8.0 L (8.5-10.1) mg/dL Total Bilirubin 0.5 (0.2-1.0) mg/dL AST 59 H (15-37) U/L ALT 57 (12-78) U/L Alkaline Phosphatase 80 (46-116) U/L Total Protein 7.0 (6.4-8.2) g/dL Albumin 2.7 L (3.4-5.0) g/dL Globulin 4.3 H (2.3-3.5) g/dL Albumin/Globulin Ratio 0.6 L (1.2-2.2) Procalcitonin ng/mL Result Diagrams: 06/14/21 05:20 06/14/21 05:20 Sepsis Event Note - Evaluation Sepsis Screening Result: No Definite Risk - Focused Exam Vital Signs: Vital Signs Temp Pulse Pulse Resp BP BP Pulse Ox 06/14/21 13:38 93 131/68 06/14/21 12:11 90 L 06/14/21 10:53 36.8 C 93 22 H 131/68 92 L 06/14/21 08:37 132/68 06/14/21 08:20 90 L 06/14/21 07:42 36.5 C 75 24 H 132/68 87 L 06/14/21 07:24 91 L 06/14/21 05:00 65 91 L - Problem List & Annotations (1) Pneumonia due to COVID-19 virus SNOMED Code(s): 283820832725601844 Code(s): U07.1 - COVID-19; J12.82 - PNEUMONIA DUE TO CORONAVIRUS DISEASE 2019 Status: Acute Current Visit: Yes (2) Acute respiratory failure with hypoxia SNOMED Code(s): 71230731, 364193483 Code(s): J96.01 - ACUTE RESPIRATORY FAILURE WITH HYPOXIA Status: Acute Current Visit: Yes (3) Insulin dependent diabetes mellitus SNOMED Code(s): 71403630 Code(s): QGQ3078 - Status: Chronic Current Visit: Yes (4) Obesity (BMI 30.0-34.9) SNOMED Code(s): 141982781321863 Code(s): E66.9 - OBESITY, UNSPECIFIED Status: Chronic Current Visit: Yes (5) Coronary artery disease SNOMED Code(s): 80463093 Code(s): I25.10 - ATHSCL HEART DISEASE OF [place] CORONARY ARTERY W/O ANG PCTRS Status: Chronic Current Visit: Yes Qualifiers: Coronary Disease-Associated Artery/Lesion type: [place] artery [place] vs. transplanted heart: [place] heart Associated angina: without angina Qualified Code(s): I25.10 - Atherosclerotic heart disease of [place] coronary artery without angina pectoris - Problem List Review Problem List Initiated/Reviewed/Updated: Yes - My Orders Last 24 Hours: My Active Orders 06/13/21 16:05 Resuscitation Status Routine 06/13/21 Dinner Consistent Carbohydrate Diet [DIET] 06/13/21 17:04 Acetaminophen [TylenoL] 650 mg PO Q4H PRN Albuterol [Ventolin HFA] 0 gm INH Q2H PRN Benzonatate [Tessalon Perles] 100 mg PO TID PRN Dextromethorphan/guaiFENesin [Robitussin DM] 10 ml PO Q4H PRN Docusate Sodium/Sennosides [Senna Plus] 1 tab PO BID PRN Insulin Lispro [HumaLOG] See Protocol SUBCUT QIDACANDBED LORazepam [Ativan] 0.5 mg IVPUSH Q4H PRN Magnesium Hydroxide [Milk of Magnesia] 30 ml PO Q12H PRN Melatonin 9 mg PO BEDTIME PRN Ondansetron [Zofran ODT] 4 mg PO Q6H PRN Ondansetron [Zofran] 4 mg IV Q6H PRN 06/13/21 17:04 Patient Status [ADT] Routine Communication Order [RC] PRN Communication Order [RC] PRN Diabetes Education [RC] Click to Edit Dietary Supplements [RC] TIDMEALS Intake and Output [RC] QSHIFT Notify Provider Vital Signs [RC] ASDIRECTED Notify Provider [RC] PRN Oxygen Therapy [RC] PRN RT Aerosol Therapy [RC] ASDIRECTED RT Post Treatment Assessment [RC] Click to Edit Up With Assistance [RC] ASDIRECTED VTE/DVT Education [RC] Per Unit Routine Vital Signs [RC] Q4H Isolation [COMM] Routine 06/13/21 18:10 Communication Order [RC] ASDIRECTED 06/13/21 21:00 GLUCOSE POC LAB TO COLLECT JPM [POC] QIDACANDBED Azelastine [Astelin Nasal Soln] 0 ml NASBOTH BID Insulin Glarg,Human.Rec.Analog [LantUS Solostar] 74 units SUBCUT BEDTIME Mometasone/Formoterol [Dulera 200-5 MCG] 2 puff IH BIDRT rOPINIRole [Requip] 0.5 mg PO BEDTIME 06/13/21 21:42 Magnesium Oxide 400 mg PO BEDTIME 06/14/21 09:00 Aspirin [Halfprin] 81 mg PO DAILY Azithromycin [Zithromax] 500 mg PO DAILY Cholecalciferol (Vitamin D3) [Vitamin D3] 25 mcg PO DAILY Clopidogrel [Plavix] 75 mg PO DAILY Insulin Glarg,Human.Rec.Analog [LantUS Solostar] 46 units SUBCUT QAM allopurinoL [Zyloprim] 100 mg PO DAILY ramipriL [Altace] 5 mg PO DAILY 06/14/21 11:00 Patient's Own Medication [Ptom] 0 each SUBCUT We@0900 06/14/21 12:00 Insulin Lispro [HumaLOG] 28 unit SUBCUT TIDMEALS 06/14/21 13:00 Enoxaparin [Lovenox] 40 mg SUBCUT Q24H Ezetimibe [Zetia] 10 mg PO DAILY Metoprolol Succinate [Toprol XL] 25 mg PO DAILY Montelukast [Singulair] 10 mg PO DAILY amLODIPine [Norvasc] 2.5 mg PO DAILY 06/14/21 14:00 Remdesivir 100 mg Sodium Chloride 0.9% [Normal Saline] 100 ml IV Q24H dexAMETHasone [Decadron] 6 mg IVPUSH Q24H 06/14/21 14:45 guaiFENesin [Mucinex] 600 mg PO TID 06/14/21 16:30 GLUCOSE POC LAB TO COLLECT JPM [POC] QIDACANDBED 06/14/21 21:00 GLUCOSE POC LAB TO COLLECT JPM [POC] QIDACANDBED 06/15/21 05:00 COMPREHENSIVE METABOLIC PN,CMP [CHEM] Timed CRP [C-REACTIVE PROTEIN] [CHEM] Timed D-DIMER QUANTITATIVE [COAG] Timed 06/15/21 07:30 GLUCOSE POC LAB TO COLLECT JPM [POC] QIDACANDBED Pantoprazole [ProTONIX] 40 mg PO ACBREAKFAST 06/15/21 11:30 GLUCOSE POC LAB TO COLLECT JPM [POC] QIDACANDBED 06/15/21 16:30 GLUCOSE POC LAB TO COLLECT JPM [POC] QIDACANDBED 06/15/21 21:00 GLUCOSE POC LAB TO COLLECT JPM [POC] QIDACANDBED 06/16/21 07:30 GLUCOSE POC LAB TO COLLECT JPM [POC] QIDACANDBED 06/16/21 11:30 GLUCOSE POC LAB TO COLLECT JPM [POC] QIDACANDBED 06/16/21 16:30 GLUCOSE POC LAB TO COLLECT JPM [POC] QIDACANDBED 06/16/21 21:00 GLUCOSE POC LAB TO COLLECT JPM [POC] QIDACANDBED 06/17/21 07:30 GLUCOSE POC LAB TO COLLECT JPM [POC] QIDACANDBED 06/17/21 11:30 GLUCOSE POC LAB TO COLLECT JPM [POC] QIDACANDBED 06/17/21 16:30 GLUCOSE POC LAB TO COLLECT JPM [POC] QIDACANDBED 06/17/21 21:00 GLUCOSE POC LAB TO COLLECT JPM [POC] QIDACANDBED 06/18/21 07:30 GLUCOSE POC LAB TO COLLECT JPM [POC] QIDACANDBED 06/18/21 11:30 GLUCOSE POC LAB TO COLLECT JPM [POC] QIDACANDBED 06/18/21 16:30 GLUCOSE POC LAB TO COLLECT JPM [POC] QIDACANDBED 06/18/21 21:00 GLUCOSE POC LAB TO COLLECT JPM [POC] QIDACANDBED - Plan Plan:: ASSESSMENT AND PLAN - COVID-19 pneumonia-complicated by acute respiratory failure with hypoxia. Symptom onset roughly 10 days prior to admission. Stable since admission but no dramatic improvement and fortunately no worsening. Tolerating treatment so far. Requiring 4 L of oxygen. -Supplemental oxygen, wean as able -Dexamethasone 6 mg daily (day 2) -Remdesivir x5 days -Enoxaparin every 24 hours -Recheck CRP and D-dimer every 2 to 3 days -Isolation precautions Insulin-dependent diabetes mellitus-patient normally uses combination of twice daily basal insulin and mealtime insulin. Moderate elevation of blood sugars. Appetite improving. -Continue regular long-acting insulin -Usual dose of mealtime insulin -Medium dose sliding scale supplementation Coronary artery disease-recent stenting has improved his dyspnea some. No chest pain. -Continue medical management Maintenance issues - -DVT prophylaxis-enoxaparin -GI prophylaxis-not indicated -Nutrition-diabetic Disposition -I anticipate discharge home after the hospital stay Primary care physician -Dr Neeraj De Santiago M.D.
[2021-06-14] MEDS: guaiFENesin 600 MG Tab.ER PO SCH ×2 (16:23→20:06)
[2021-06-14] MEDS: Magnesium Oxide 400 MG Tab PO SCH (20:15)
[2021-06-14] MEDS: rOPINIRole 0.5 MG Tab PO SCH (20:15)
[2021-06-15] MEDS: guaiFENesin/Dextromethorphan 100-10 MG/5 ML Soln 10 ML Cup PO PRN ×2 (04:59→20:18)
[2021-06-15] MEDS: Benzonatate 100 MG Cap PO PRN ×2 (04:59→16:16)
[2021-06-15] MEDS: Formoterol/Mometasone 200-5 MCG 8.8 GM Inhaler IH SCH ×2 (07:48→20:09)
[2021-06-15] MEDS: Insulin Lispro 100 Unit/ML 3 ML KwikPen SUBCUT SCH ×7 (08:46→20:08)
[2021-06-15] MEDS: Insulin Glargine,Human Rec. Analog 100 Units/ML 3 ML Pen SUBCUT SCH ×2 (08:48→20:11)
[2021-06-15] MEDS: Pantoprazole 40 MG Tab.CR PO SCH (08:52)
[2021-06-15] MEDS: Montelukast 10 MG Tab PO SCH (08:52)
[2021-06-15] MEDS: Metoprolol Succinate 25 MG Tab.ER PO SCH (08:52)
[2021-06-15] MEDS: Ezetimibe 10 MG Tab PO SCH (08:52)
[2021-06-15] MEDS: guaiFENesin 600 MG Tab.ER PO SCH ×3 (08:52→20:12)
[2021-06-15] MEDS: amLODIPine 5 MG Tab PO SCH (08:52)
[2021-06-15] MEDS: Cholecalciferol (Vitamin D3) 25 MCG Tab PO SCH (08:58)
[2021-06-15] MEDS: Azithromycin 250 MG Tab PO SCH (08:58)
[2021-06-15] MEDS: Aspirin 81 MG Tab.EC PO SCH (08:58)
[2021-06-15] MEDS: Allopurinol 100 MG Tab PO SCH (08:59)
[2021-06-15] MEDS: Azelastine Nasal Soln 30 ML Spray Bottle NASBOTH SCH ×2 (08:59→20:09)
[2021-06-15] MEDS: Clopidogrel 75 MG Tab PO SCH (08:59)
[2021-06-15] MEDS ORDERED: Calcium Carbonate 500 MG Tab.Chew PO PRN (14:10)
[2021-06-15] MEDS ORDERED: Aluminum Hydroxide/Magnesium Hydroxide/Simethicone Susp 30 ML Cup PO PRN (14:10)
--- NOTE | 2021-06-15 14:17 | PCM.PN ---
- General Info Date of Service: 06/15/21 Subjective Update: No acute events overnight. Patient does report some heartburn but otherwise feels okay. Does get short of breath with activity. This morning he had an episode of hypoxia after getting to the bathroom and back that took a long time to rebound and did require increasing amounts of supplemental oxygen. Occasional cough. No myalgias. Appetite acceptable. Blood sugars mild to moderately elevated but overall doing okay. Functional Status: Reports: Pain Controlled - Review of Systems General: Reports: Weakness Pulmonary: Reports: Shortness of Breath - Patient Data Vitals - Most Recent: Last Vital Signs Temp 35.7 C L 06/15/21 10:22 Pulse 65 06/15/21 10:22 Resp 18 06/15/21 10:22 BP 121/65 06/15/21 10:22 Pulse Ox 92 L 06/15/21 12:57 Weight - Most Recent: 119.295 kg I&O - Last 24 Hours: Intake & Output 06/14/21 06/15/21 06/15/21 22:59 06:59 14:59 Intake Total 850 800 300 Output Total 1 300 Balance 849 800 0 Lab Results Last 24 Hours: Laboratory Results - last 24 hr 06/14/21 06/14/21 06/15/21 Range/Units 16:32 21:08 04:53 D-Dimer, Quantitative 683.03 H (0.0-500.0) ng/mL Sodium (140-148) mmol/L Potassium (3.6-5.2) mmol/L Chloride (100-108) mmol/L Carbon Dioxide (21-32) mmol/L Anion Gap (5.0-14.0) mmol/L BUN (7-18) mg/dL Creatinine (0.8-1.3) mg/dL Est Cr Clr Drug Dosing mL/min Estimated GFR (MDRD) (>60) Glucose (74-106) mg/dL POC Glucose 310 H 290 H (74-106) mg/dL Calcium (8.5-10.1) mg/dL Total Bilirubin (0.2-1.0) mg/dL AST (15-37) U/L ALT (12-78) U/L Alkaline Phosphatase (46-116) U/L C-Reactive Protein (0.0-0.3) mg/dL Total Protein (6.4-8.2) g/dL Albumin (3.4-5.0) g/dL Globulin (2.3-3.5) g/dL Albumin/Globulin Ratio (1.2-2.2) 06/15/21 06/15/21 06/15/21 Range/Units 04:53 07:42 11:29 D-Dimer, Quantitative (0.0-500.0) ng/mL Sodium 136 L (140-148) mmol/L Potassium 4.4 (3.6-5.2) mmol/L Chloride 100 (100-108) mmol/L Carbon Dioxide 25 (21-32) mmol/L Anion Gap 15.4 H (5.0-14.0) mmol/L BUN 34 H (7-18) mg/dL Creatinine 1.4 H (0.8-1.3) mg/dL Est Cr Clr Drug Dosing 62.87 mL/min Estimated GFR (MDRD) 51 L (>60) Glucose 228 H (74-106) mg/dL POC Glucose 231 H 299 H (74-106) mg/dL Calcium 7.6 L (8.5-10.1) mg/dL Total Bilirubin 0.5 (0.2-1.0) mg/dL AST 53 H (15-37) U/L ALT 64 (12-78) U/L Alkaline Phosphatase 95 (46-116) U/L C-Reactive Protein 3.50 H (0.0-0.3) mg/dL Total Protein 6.6 (6.4-8.2) g/dL Albumin 2.7 L (3.4-5.0) g/dL Globulin 3.9 H (2.3-3.5) g/dL Albumin/Globulin Ratio 0.7 L (1.2-2.2) Med Orders - Current: Current Medications Acetaminophen (Acetaminophen 325 Mg Tab) 650 mg PO Q4H PRN PRN Reason: Pain (Mild 1-3)/fever Al Hydroxide/Mg Hydroxide (Aluminum Hydroxide/Magnesium Hydroxide/Simethicone Susp 30 Ml Cup) 30 ml PO Q4H PRN PRN Reason: Indigestion Albuterol (Albuterol 8 Gm Inhaler) 0 gm INH Q2H PRN PRN Reason: Shortness of Breath Allopurinol (Allopurinol 100 Mg Tab) 100 mg PO DAILY [facility] Last Admin: 06/15/21 08:59 Dose: 100 mg Documented by: Amlodipine Besylate (Amlodipine 5 Mg Tab) 2.5 mg PO DAILY [facility] Last Admin: 06/15/21 08:52 Dose: 2.5 mg Documented by: Aspirin (Aspirin 81 Mg Tab.Ec) 81 mg PO DAILY [facility] Last Admin: 06/15/21 08:58 Dose: 81 mg Documented by: Azelastine HCl (Azelastine Nasal Soln 30 Ml [place] Bottle) 0 ml NASBOTH BID [facility] Last Admin: 06/15/21 08:59 Dose: 2 spray Documented by: Azithromycin (Azithromycin 250 Mg Tab) 500 mg PO DAILY [facility] Stop: 06/18/21 09:01 Last Admin: 06/15/21 08:58 Dose: 500 mg Documented by: Benzonatate (Benzonatate 100 Mg Cap) 100 mg PO TID PRN PRN Reason: Cough Last Admin: 06/15/21 04:59 Dose: 100 mg Documented by: Calcium Carbonate/Glycine (Calcium Carbonate 500 Mg Tab.Chew) 1,000 mg PO Q2HR PRN PRN Reason: Indigestion Cholecalciferol (Cholecalciferol (Vitamin D3) 25 Mcg Tab) 25 mcg PO DAILY [facility] Last Admin: 06/15/21 08:58 Dose: 25 mcg Documented by: Clopidogrel Bisulfate (Clopidogrel 75 Mg Tab) 75 mg PO DAILY [facility] Last Admin: 06/15/21 08:59 Dose: 75 mg Documented by: Dexamethasone (Dexamethasone 4 Mg/Ml Sdv) 6 mg IVPUSH Q24H [facility] Stop: 06/22/21 14:01 Last Admin: 06/14/21 13:32 Dose: 6 mg Documented by: Ezetimibe (Ezetimibe 10 Mg Tab) 10 mg PO DAILY [facility] Last Admin: 06/15/21 08:52 Dose: 10 mg Documented by: Enoxaparin Sodium (Enoxaparin 40 Mg/0.4 Ml Syringe) 40 mg SUBCUT Q24H [facility] Last Admin: 06/14/21 13:54 Dose: 40 mg Documented by: Guaifenesin (Guaifenesin 600 Mg Tab.Er) 600 mg PO TID [facility] Last Admin: 06/15/21 08:52 Dose: 600 mg Documented by: Guaifenesin/Dextromethorphan (Guaifenesin/Dextromethorphan 100-10 Mg/5 Ml Soln 10 Ml Cup) 10 ml PO Q4H PRN PRN Reason: Cough Last Admin: 06/15/21 04:59 Dose: 10 ml Documented by: Remdesivir 100 mg/ Sodium (Chloride) 100 mls @ 100 mls/hr IV Q24H [facility] Stop: 06/17/21 14:59 Last Admin: 06/14/21 13:54 Dose: 100 mls/hr Documented by: Insulin Glargine (Insulin Glargine,Human Rec. Analog 100 Units/Ml 3 Ml Pen) 74 units SUBCUT BEDTIME [facility] Last Admin: 06/14/21 21:47 Dose: 74 units Documented by: Insulin Glargine (Insulin Glargine,Human Rec. Analog 100 Units/Ml 3 Ml Pen) 46 units SUBCUT QAM [facility] Last Admin: 06/15/21 08:48 Dose: 46 units Documented by: Insulin Human Lispro (Insulin Lispro 100 Unit/Ml 3 Ml Kwikpen) 0 unit SUBCUT QIDACANDBED [facility]; Protocol Last Admin: 06/15/21 12:36 Dose: 6 units Documented by: Insulin Human Lispro (Insulin Lispro 100 Unit/Ml 3 Ml Kwikpen) 28 unit SUBCUT TIDMEALS [facility] Last Admin: 06/15/21 12:37 Dose: 28 units Documented by: Lorazepam (Lorazepam 2 Mg/Ml Sdv) 0.5 mg IVPUSH Q4H PRN PRN Reason: Nausea/Vomiting Magnesium Hydroxide (Magnesium Hydroxide 400 Mg/5 Ml Susp 30 Ml Cup) 30 ml PO Q12H PRN PRN Reason: Constipation Magnesium Oxide (Magnesium Oxide 400 Mg Tab) 400 mg PO BEDTIME [facility] Last Admin: 06/14/21 20:15 Dose: 400 mg Documented by: Melatonin (Melatonin 3 Mg Tab) 9 mg PO BEDTIME PRN PRN Reason: Sleep Metoprolol Succinate (Metoprolol Succinate 25 Mg Tab.Er) 25 mg PO DAILY [facility] Last Admin: 06/15/21 08:52 Dose: 25 mg Documented by: Mometasone Furoate/Formoterol Fumar (Formoterol/Mometasone 200-5 Mcg 8.8 Gm Inhaler) 2 puff IH BIDRT [facility] Last Admin: 06/15/21 07:48 Dose: 2 puff Documented by: Montelukast Sodium (Montelukast 10 Mg Tab) 10 mg PO DAILY [facility] Last Admin: 06/15/21 08:52 Dose: 10 mg Documented by: Ondansetron HCl (Ondansetron 4 Mg/2 Ml Sdv) 4 mg IV Q6H PRN PRN Reason: Nausea/Vomiting Ondansetron HCl (Ondansetron 4 Mg Tab.Dis) 4 mg PO Q6H PRN PRN Reason: Nausea able to take PO Pantoprazole Sodium (Pantoprazole 40 Mg Tab.Cr) 40 mg PO ACBREAKFAST [facility] Last Admin: 06/15/21 08:52 Dose: 40 mg Documented by: Kike 3mg 0 each SUBCUT We@0900 [facility] Last Admin: 06/14/21 10:40 Dose: 1 each Documented by: Ramipril (Ramipril 2.5 Mg Cap) 5 mg PO DAILY [facility] Last Admin: 06/15/21 08:58 Dose: 5 mg Documented by: Ropinirole HCl (Ropinirole 0.5 Mg Tab) 0.5 mg PO BEDTIME [facility] Last Admin: 06/14/21 20:15 Dose: 0.5 mg Documented by: Senna/Docusate Sodium (Docusate Sodium/Sennosides 50-8.6 Mg Tab) 1 tab PO BID PRN PRN Reason: Constipation Discontinued Medications Acetaminophen (Acetaminophen 325 Mg Tab) 650 mg PO Q4H PRN PRN Reason: Fever Greater Than 101 Last Admin: 06/13/21 13:47 Dose: 650 mg Documented by: Dexamethasone (Dexamethasone 4 Mg/Ml Sdv) 6 mg IVPUSH DAILY [facility] Stop: 06/22/21 09:01 Last Admin: 06/13/21 13:48 Dose: 6 mg Documented by: Enoxaparin Sodium (Enoxaparin 40 Mg/0.4 Ml Syringe) 40 mg SUBCUT DAILY [facility] Last Admin: 06/13/21 13:57 Dose: 40 mg Documented by: Remdesivir 200 mg/ Sodium (Chloride) 250 mls @ 250 mls/hr IV ONETIME ONE Stop: 06/13/21 14:14 Last Admin: 06/13/21 13:51 Dose: 250 mls/hr Documented by: Insulin Human Lispro (Insulin Lispro 100 Unit/Ml 3 Ml Kwikpen) 18 unit SUBCUT TIDMEALS [facility] Last Admin: 06/14/21 08:43 Dose: 18 units Documented by: Patient Own Medication (Patient's Own Medication 1 Each) 0 each SUBCUT .WEEKLY IVANA - Exam Quality Assessment: Supplemental Oxygen General: Alert, Oriented, Cooperative, No Acute Distress Lungs: Normal Respiratory Effort. No: Wheezing GI/Abdominal Exam: Soft, No Distention Extremities: No Pedal Edema Psy/Mental Status: Alert, Normal Affect - Patient Data Lab Results Last 24 hrs: Laboratory Results - last 24 hr 06/14/21 06/14/21 06/15/21 Range/Units 16:32 21:08 04:53 D-Dimer, Quantitative 683.03 H (0.0-500.0) ng/mL Sodium (140-148) mmol/L Potassium (3.6-5.2) mmol/L Chloride (100-108) mmol/L Carbon Dioxide (21-32) mmol/L Anion Gap (5.0-14.0) mmol/L BUN (7-18) mg/dL Creatinine (0.8-1.3) mg/dL Est Cr Clr Drug Dosing mL/min Estimated GFR (MDRD) (>60) Glucose (74-106) mg/dL POC Glucose 310 H 290 H (74-106) mg/dL Calcium (8.5-10.1) mg/dL Total Bilirubin (0.2-1.0) mg/dL AST (15-37) U/L ALT (12-78) U/L Alkaline Phosphatase (46-116) U/L C-Reactive Protein (0.0-0.3) mg/dL Total Protein (6.4-8.2) g/dL Albumin (3.4-5.0) g/dL Globulin (2.3-3.5) g/dL Albumin/Globulin Ratio (1.2-2.2) 06/15/21 06/15/21 06/15/21 Range/Units 04:53 07:42 11:29 D-Dimer, Quantitative (0.0-500.0) ng/mL Sodium 136 L (140-148) mmol/L Potassium 4.4 (3.6-5.2) mmol/L Chloride 100 (100-108) mmol/L Carbon Dioxide 25 (21-32) mmol/L Anion Gap 15.4 H (5.0-14.0) mmol/L BUN 34 H (7-18) mg/dL Creatinine 1.4 H (0.8-1.3) mg/dL Est Cr Clr Drug Dosing 62.87 mL/min Estimated GFR (MDRD) 51 L (>60) Glucose 228 H (74-106) mg/dL POC Glucose 231 H 299 H (74-106) mg/dL Calcium 7.6 L (8.5-10.1) mg/dL Total Bilirubin 0.5 (0.2-1.0) mg/dL AST 53 H (15-37) U/L ALT 64 (12-78) U/L Alkaline Phosphatase 95 (46-116) U/L C-Reactive Protein 3.50 H (0.0-0.3) mg/dL Total Protein 6.6 (6.4-8.2) g/dL Albumin 2.7 L (3.4-5.0) g/dL Globulin 3.9 H (2.3-3.5) g/dL Albumin/Globulin Ratio 0.7 L (1.2-2.2) Result Diagrams: 06/14/21 05:20 06/15/21 04:53 Sepsis Event Note - Evaluation Sepsis Screening Result: No Definite Risk - Focused Exam Vital Signs: Vital Signs Temp Temp Pulse Pulse Resp BP BP 06/15/21 12:57 06/15/21 12:51 06/15/21 10:22 35.7 C L 65 18 121/65 06/15/21 09:49 06/15/21 09:30 06/15/21 08:58 129/72 06/15/21 08:52 63 129/72 06/15/21 08:05 06/15/21 07:55 06/15/21 07:15 06/15/21 07:12 06/15/21 07:00 36.3 C 63 28 H 129/72 Pulse Ox Pulse Ox 06/15/21 12:57 92 L 06/15/21 12:51 93 L 06/15/21 10:22 95 06/15/21 09:49 91 L 06/15/21 09:30 88 L 06/15/21 08:58 06/15/21 08:52 06/15/21 08:05 92 L 06/15/21 07:55 94 L 06/15/21 07:15 90 L 06/15/21 07:12 89 L 06/15/21 07:00 84 L - Problem List & Annotations (1) Pneumonia due to COVID-19 virus SNOMED Code(s): 922228815035800625 Code(s): U07.1 - COVID-19; J12.82 - PNEUMONIA DUE TO CORONAVIRUS DISEASE 2019 Status: Acute Current Visit: Yes (2) Acute respiratory failure with hypoxia SNOMED Code(s): 77279872, 744202151 Code(s): J96.01 - ACUTE RESPIRATORY FAILURE WITH HYPOXIA Status: Acute Current Visit: Yes (3) Insulin dependent diabetes mellitus SNOMED Code(s): 58636031 Code(s): SAQ7062 - Status: Chronic Current Visit: Yes (4) Obesity (BMI 30.0-34.9) SNOMED Code(s): 233316990186527 Code(s): E66.9 - OBESITY, UNSPECIFIED Status: Chronic Current Visit: Yes (5) Coronary artery disease SNOMED Code(s): 86142784 Code(s): I25.10 - ATHSCL HEART DISEASE OF [place] CORONARY ARTERY W/O ANG PCTRS Status: Chronic Current Visit: Yes Qualifiers: Coronary Disease-Associated Artery/Lesion type: [place] artery [place] vs. transplanted heart: [place] heart Associated angina: without angina Qualified Code(s): I25.10 - Atherosclerotic heart disease of [place] coronary artery without angina pectoris - Problem List Review Problem List Initiated/Reviewed/Updated: Yes - My Orders Last 24 Hours: My Active Orders 06/14/21 14:00 Remdesivir 100 mg Sodium Chloride 0.9% [Normal Saline] 100 ml IV Q24H dexAMETHasone [Decadron] 6 mg IVPUSH Q24H 06/14/21 14:45 guaiFENesin [Mucinex] 600 mg PO TID 06/15/21 07:30 Pantoprazole [ProTONIX] 40 mg PO ACBREAKFAST 06/15/21 14:10 Alum Hydrox/Mag Hydrox/Simeth [Mag-Al Plus] 30 ml PO Q4H PRN Calcium Carbonate [Tums] 1,000 mg PO Q2HR PRN 06/15/21 14:14 Communication Order [RC] DAILY 06/15/21 16:30 GLUCOSE POC LAB TO COLLECT JPM [POC] QIDACANDBED 06/15/21 21:00 GLUCOSE POC LAB TO COLLECT JPM [POC] QIDACANDBED 06/16/21 05:00 COMPREHENSIVE METABOLIC PN,CMP [CHEM] Timed 06/16/21 07:30 GLUCOSE POC LAB TO COLLECT JPM [POC] QIDACANDBED 06/16/21 11:30 GLUCOSE POC LAB TO COLLECT JPM [POC] QIDACANDBED 06/16/21 16:30 GLUCOSE POC LAB TO COLLECT JPM [POC] QIDACANDBED 06/16/21 21:00 GLUCOSE POC LAB TO COLLECT JPM [POC] QIDACANDBED 06/17/21 07:30 GLUCOSE POC LAB TO COLLECT JPM [POC] QIDACANDBED 06/17/21 11:30 GLUCOSE POC LAB TO COLLECT JPM [POC] QIDACANDBED 06/17/21 16:30 GLUCOSE POC LAB TO COLLECT JPM [POC] QIDACANDBED 06/17/21 21:00 GLUCOSE POC LAB TO COLLECT JPM [POC] QIDACANDBED 06/18/21 07:30 GLUCOSE POC LAB TO COLLECT JPM [POC] QIDACANDBED 06/18/21 11:30 GLUCOSE POC LAB TO COLLECT JPM [POC] QIDACANDBED 06/18/21 16:30 GLUCOSE POC LAB TO COLLECT JPM [POC] QIDACANDBED 06/18/21 21:00 GLUCOSE POC LAB TO COLLECT JPM [POC] QIDACANDBED 06/19/21 07:30 GLUCOSE POC LAB TO COLLECT JPM [POC] QIDACANDBED 06/19/21 11:30 GLUCOSE POC LAB TO COLLECT JPM [POC] QIDACANDBED 06/19/21 16:30 GLUCOSE POC LAB TO COLLECT JPM [POC] QIDACANDBED 06/19/21 21:00 GLUCOSE POC LAB TO COLLECT JPM [POC] QIDACANDBED 06/20/21 07:30 GLUCOSE POC LAB TO COLLECT JPM [POC] QIDACANDBED 06/20/21 11:30 GLUCOSE POC LAB TO COLLECT JPM [POC] QIDACANDBED 06/20/21 16:30 GLUCOSE POC LAB TO COLLECT JPM [POC] QIDACANDBED 06/20/21 21:00 GLUCOSE POC LAB TO COLLECT JPM [POC] QIDACANDBED 06/21/21 07:30 GLUCOSE POC LAB TO COLLECT JPM [POC] QIDACANDBED 06/21/21 11:30 GLUCOSE POC LAB TO COLLECT JPM [POC] QIDACANDBED 06/21/21 16:30 GLUCOSE POC LAB TO COLLECT JPM [POC] QIDACANDBED 06/21/21 21:00 GLUCOSE POC LAB TO COLLECT JPM [POC] QIDACANDBED 06/22/21 07:30 GLUCOSE POC LAB TO COLLECT JPM [POC] QIDACANDBED 06/22/21 11:30 GLUCOSE POC LAB TO COLLECT JPM [POC] QIDACANDBED 06/22/21 16:30 GLUCOSE POC LAB TO COLLECT JPM [POC] QIDACANDBED 06/22/21 21:00 GLUCOSE POC LAB TO COLLECT JPM [POC] QIDACANDBED 06/23/21 07:30 GLUCOSE POC LAB TO COLLECT JPM [POC] QIDACANDBED 06/23/21 11:30 GLUCOSE POC LAB TO COLLECT JPM [POC] QIDACANDBED 06/23/21 16:30 GLUCOSE POC LAB TO COLLECT JPM [POC] QIDACANDBED - Plan Plan:: ASSESSMENT AND PLAN - COVID-19 pneumonia-complicated by acute respiratory failure with hypoxia. Symptom onset roughly 10 days prior to admission. Slight increase in his supplemental oxygen requirements since admission. Symptomatically doing okay. Other vital signs stable. CRP and D-dimer have both improved since admission. -Supplemental oxygen, wean as able -Dexamethasone 6 mg daily (day 3) -Remdesivir x5 days -Enoxaparin every 24 hours -Recheck CRP and D-dimer every 2 to 3 days -Isolation precautions Insulin-dependent diabetes mellitus-patient normally uses combination of twice daily basal insulin and mealtime insulin. Mild/moderate elevation of blood s ugars. -Continue regular long-acting insulin -Usual dose of mealtime insulin -Medium dose sliding scale supplementation Coronary artery disease-recent stenting has improved his dyspnea some. No chest pain. -Continue medical management Maintenance issues - -DVT prophylaxis-enoxaparin -GI prophylaxis-not indicated -Nutrition-diabetic Disposition -I anticipate discharge home after the hospital stay Primary care physician -Dr Neeraj De Santiago M.D.
[2021-06-15] MEDS: REMDESIVIR 100 MG in Sodium Chloride 0.9% 100 ML IV SCH (14:29)
[2021-06-15] MEDS: Dexamethasone 4 MG/ML SDV IVPUSH SCH (15:36)
[2021-06-15] MEDS: Enoxaparin 40 MG/0.4 ML Syringe SUBCUT SCH (15:36)
[2021-06-15] MEDS: Magnesium Oxide 400 MG Tab PO SCH (20:12)
[2021-06-15] MEDS: rOPINIRole 0.5 MG Tab PO SCH (20:12)
[2021-06-16] MEDS: Formoterol/Mometasone 200-5 MCG 8.8 GM Inhaler IH SCH ×2 (07:52→20:46)
[2021-06-16] MEDS: Pantoprazole 40 MG Tab.CR PO SCH (08:20)
[2021-06-16] MEDS: amLODIPine 5 MG Tab PO SCH (08:20)
[2021-06-16] MEDS: Montelukast 10 MG Tab PO SCH (08:21)
[2021-06-16] MEDS: guaiFENesin 600 MG Tab.ER PO SCH ×3 (08:21→20:47)
[2021-06-16] MEDS: Clopidogrel 75 MG Tab PO SCH (08:21)
[2021-06-16] MEDS: Aspirin 81 MG Tab.EC PO SCH (08:21)
[2021-06-16] MEDS: Ezetimibe 10 MG Tab PO SCH (08:22)
[2021-06-16] MEDS: Metoprolol Succinate 25 MG Tab.ER PO SCH (08:22)
[2021-06-16] MEDS: Cholecalciferol (Vitamin D3) 25 MCG Tab PO SCH (08:23)
[2021-06-16] MEDS: Allopurinol 100 MG Tab PO SCH (08:23)
[2021-06-16] MEDS: Azithromycin 250 MG Tab PO SCH (08:23)
[2021-06-16] MEDS: Azelastine Nasal Soln 30 ML Spray Bottle NASBOTH SCH ×2 (08:24→20:46)
[2021-06-16] MEDS: Insulin Lispro 100 Unit/ML 3 ML KwikPen SUBCUT SCH ×7 (08:24→20:45)
[2021-06-16] MEDS: Insulin Glargine,Human Rec. Analog 100 Units/ML 3 ML Pen SUBCUT SCH ×2 (08:25→20:48)
[2021-06-16] MEDS: guaiFENesin/Dextromethorphan 100-10 MG/5 ML Soln 10 ML Cup PO PRN (10:12)
--- NOTE | 2021-06-16 12:27 | PCM.PN ---
- General Info Date of Service: 06/16/21 Subjective Update: There were no acute events overnight. Patient feels about the same as yesterday. Short of breath with activity but fairly comfortable at rest. No significant heartburn today. Occasional cough with occasional sputum. Coughing spells do lead to increased dyspnea. No fevers. Blood sugars fairly well controlled. He has currently requiring 14 to 15 L of supplemental oxygen. Functional Status: Reports: Pain Controlled, Tolerating Diet - Review of Systems General: Reports: Weakness Pulmonary: Reports: Shortness of Breath - Patient Data Vitals - Most Recent: Last Vital Signs Temp 36.2 C 06/16/21 10:00 Pulse 78 06/16/21 10:00 Resp 18 06/16/21 10:00 BP 87/46 L 06/16/21 10:00 Pulse Ox 87 L 06/16/21 10:00 Weight - Most Recent: 119.295 kg I&O - Last 24 Hours: Intake & Output 06/15/21 06/16/21 06/16/21 22:59 06:59 14:59 Intake Total 600 740 300 Output Total 800 1100 Balance -200 -360 300 Lab Results Last 24 Hours: Laboratory Results - last 24 hr 06/15/21 06/16/21 06/16/21 Range/Units 16:43 06:39 07:28 Sodium 137 L (140-148) mmol/L Potassium 5.0 (3.6-5.2) mmol/L Chloride 101 (100-108) mmol/L Carbon Dioxide 26 (21-32) mmol/L Anion Gap 15.0 H (5.0-14.0) mmol/L BUN 31 H (7-18) mg/dL Creatinine 1.3 (0.8-1.3) mg/dL Est Cr Clr Drug Dosing 67.71 mL/min Estimated GFR (MDRD) 55 L (>60) Glucose 198 H (74-106) mg/dL POC Glucose 179 H 191 H (74-106) mg/dL Calcium 8.0 L (8.5-10.1) mg/dL Total Bilirubin 0.4 (0.2-1.0) mg/dL AST 46 H (15-37) U/L ALT 68 (12-78) U/L Alkaline Phosphatase 93 (46-116) U/L Total Protein 6.5 (6.4-8.2) g/dL Albumin 2.6 L (3.4-5.0) g/dL Globulin 3.9 H (2.3-3.5) g/dL Albumin/Globulin Ratio 0.7 L (1.2-2.2) 06/16/21 Range/Units 11:40 Sodium (140-148) mmol/L Potassium (3.6-5.2) mmol/L Chloride (100-108) mmol/L Carbon Dioxide (21-32) mmol/L Anion Gap (5.0-14.0) mmol/L BUN (7-18) mg/dL Creatinine (0.8-1.3) mg/dL Est Cr Clr Drug Dosing mL/min Estimated GFR (MDRD) (>60) Glucose (74-106) mg/dL POC Glucose 340 H (74-106) mg/dL Calcium (8.5-10.1) mg/dL Total Bilirubin (0.2-1.0) mg/dL AST (15-37) U/L ALT (12-78) U/L Alkaline Phosphatase (46-116) U/L Total Protein (6.4-8.2) g/dL Albumin (3.4-5.0) g/dL Globulin (2.3-3.5) g/dL Albumin/Globulin Ratio (1.2-2.2) Med Orders - Current: Current Medications Acetaminophen (Acetaminophen 325 Mg Tab) 650 mg PO Q4H PRN PRN Reason: Pain (Mild 1-3)/fever Al Hydroxide/Mg Hydroxide (Aluminum Hydroxide/Magnesium Hydroxide/Simethicone Susp 30 Ml Cup) 30 ml PO Q4H PRN PRN Reason: Indigestion Albuterol (Albuterol 8 Gm Inhaler) 0 gm INH Q2H PRN PRN Reason: Shortness of Breath Allopurinol (Allopurinol 100 Mg Tab) 100 mg PO DAILY [facility] Last Admin: 06/16/21 08:23 Dose: 100 mg Documented by: Amlodipine Besylate (Amlodipine 5 Mg Tab) 2.5 mg PO DAILY [facility] Last Admin: 06/16/21 08:20 Dose: 2.5 mg Documented by: Aspirin (Aspirin 81 Mg Tab.Ec) 81 mg PO DAILY [facility] Last Admin: 06/16/21 08:21 Dose: 81 mg Documented by: Azelastine HCl (Azelastine Nasal Soln 30 Ml [place] Bottle) 0 ml NASBOTH BID [facility] Last Admin: 06/16/21 08:24 Dose: 2 spray Documented by: Azithromycin (Azithromycin 250 Mg Tab) 500 mg PO DAILY [facility] Stop: 06/18/21 09:01 Last Admin: 06/16/21 08:23 Dose: 500 mg Documented by: Benzonatate (Benzonatate 100 Mg Cap) 100 mg PO TID PRN PRN Reason: Cough Last Admin: 06/15/21 16:16 Dose: 100 mg Documented by: Calcium Carbonate/Glycine (Calcium Carbonate 500 Mg Tab.Chew) 1,000 mg PO Q2H PRN PRN Reason: Indigestion Last Admin: 06/15/21 16:16 Dose: 1,000 mg Documented by: Cholecalciferol (Cholecalciferol (Vitamin D3) 25 Mcg Tab) 25 mcg PO DAILY [facility] Last Admin: 06/16/21 08:23 Dose: 25 mcg Documented by: Clopidogrel Bisulfate (Clopidogrel 75 Mg Tab) 75 mg PO DAILY [facility] Last Admin: 06/16/21 08:21 Dose: 75 mg Documented by: Dexamethasone (Dexamethasone 4 Mg/Ml Sdv) 6 mg IVPUSH Q24H [facility] Stop: 06/22/21 14:01 Last Admin: 06/15/21 15:36 Dose: 6 mg Documented by: Ezetimibe (Ezetimibe 10 Mg Tab) 10 mg PO DAILY [facility] Last Admin: 06/16/21 08:22 Dose: 10 mg Documented by: Enoxaparin Sodium (Enoxaparin 40 Mg/0.4 Ml Syringe) 40 mg SUBCUT Q24H [facility] Last Admin: 06/15/21 15:36 Dose: 40 mg Documented by: Guaifenesin (Guaifenesin 600 Mg Tab.Er) 600 mg PO TID [facility] Last Admin: 06/16/21 08:21 Dose: 600 mg Documented by: Guaifenesin/Dextromethorphan (Guaifenesin/Dextromethorphan 100-10 Mg/5 Ml Soln 10 Ml Cup) 10 ml PO Q4H PRN PRN Reason: Cough Last Admin: 06/16/21 10:12 Dose: 10 ml Documented by: Remdesivir 100 mg/ Sodium (Chloride) 100 mls @ 100 mls/hr IV Q24H [facility] Stop: 06/17/21 14:59 Last Admin: 06/15/21 14:29 Dose: 100 mls/hr Documented by: Insulin Glargine (Insulin Glargine,Human Rec. Analog 100 Units/Ml 3 Ml Pen) 74 units SUBCUT BEDTIME [facility] Last Admin: 06/15/21 20:11 Dose: 74 units Documented by: Insulin Glargine (Insulin Glargine,Human Rec. Analog 100 Units/Ml 3 Ml Pen) 46 units SUBCUT QAM [facility] Last Admin: 06/16/21 08:25 Dose: 46 units Documented by: Insulin Human Lispro (Insulin Lispro 100 Unit/Ml 3 Ml Kwikpen) 0 unit SUBCUT QIDACANDBED [facility]; Protocol Last Admin: 06/16/21 08:24 Dose: 2 units Documented by: Insulin Human Lispro (Insulin Lispro 100 Unit/Ml 3 Ml Kwikpen) 28 unit SUBCUT TIDMEALS [facility] Last Admin: 06/16/21 08:25 Dose: 28 units Documented by: Lorazepam (Lorazepam 2 Mg/Ml Sdv) 0.5 mg IVPUSH Q4H PRN PRN Reason: Nausea/Vomiting Magnesium Hydroxide (Magnesium Hydroxide 400 Mg/5 Ml Susp 30 Ml Cup) 30 ml PO Q12H PRN PRN Reason: Constipation Magnesium Oxide (Magnesium Oxide 400 Mg Tab) 400 mg PO BEDTIME [facility] Last Admin: 06/15/21 20:12 Dose: 400 mg Documented by: Melatonin (Melatonin 3 Mg Tab) 9 mg PO BEDTIME PRN PRN Reason: Sleep Metoprolol Succinate (Metoprolol Succinate 25 Mg Tab.Er) 25 mg PO DAILY [facility] Last Admin: 06/16/21 08:22 Dose: 25 mg Documented by: Mometasone Furoate/Formoterol Fumar (Formoterol/Mometasone 200-5 Mcg 8.8 Gm Inhaler) 2 puff IH BIDRT [facility] Last Admin: 06/16/21 07:52 Dose: 2 puff Documented by: Montelukast Sodium (Montelukast 10 Mg Tab) 10 mg PO DAILY [facility] Last Admin: 06/16/21 08:21 Dose: 10 mg Documented by: Ondansetron HCl (Ondansetron 4 Mg/2 Ml Sdv) 4 mg IV Q6H PRN PRN Reason: Nausea/Vomiting Ondansetron HCl (Ondansetron 4 Mg Tab.Dis) 4 mg PO Q6H PRN PRN Reason: Nausea able to take PO Pantoprazole Sodium (Pantoprazole 40 Mg Tab.Cr) 40 mg PO ACBREAKFAST [facility] Last Admin: 06/16/21 08:20 Dose: 40 mg Documented by: Kike 3mg 0 each SUBCUT We@0900 [facility] Last Admin: 06/14/21 10:40 Dose: 1 each Documented by: Ramipril (Ramipril 2.5 Mg Cap) 5 mg PO DAILY [facility] Last Admin: 06/16/21 08:22 Dose: 5 mg Documented by: Ropinirole HCl (Ropinirole 0.5 Mg Tab) 0.5 mg PO BEDTIME [facility] Last Admin: 06/15/21 20:12 Dose: 0.5 mg Documented by: Senna/Docusate Sodium (Docusate Sodium/Sennosides 50-8.6 Mg Tab) 1 tab PO BID PRN PRN Reason: Constipation Discontinued Medications Acetaminophen (Acetaminophen 325 Mg Tab) 650 mg PO Q4H PRN PRN Reason: Fever Greater Than 101 Last Admin: 06/13/21 13:47 Dose: 650 mg Documented by: Dexamethasone (Dexamethasone 4 Mg/Ml Sdv) 6 mg IVPUSH DAILY [facility] Stop: 06/22/21 09:01 Last Admin: 06/13/21 13:48 Dose: 6 mg Documented by: Enoxaparin Sodium (Enoxaparin 40 Mg/0.4 Ml Syringe) 40 mg SUBCUT DAILY [facility] Last Admin: 06/13/21 13:57 Dose: 40 mg Documented by: Remdesivir 200 mg/ Sodium (Chloride) 250 mls @ 250 mls/hr IV ONETIME ONE Stop: 06/13/21 14:14 Last Admin: 06/13/21 13:51 Dose: 250 mls/hr Documented by: Insulin Human Lispro (Insulin Lispro 100 Unit/Ml 3 Ml Kwikpen) 18 unit SUBCUT TIDMEALS [facility] Last Admin: 06/14/21 08:43 Dose: 18 units Documented by: Patient Own Medication (Patient's Own Medication 1 Each) 0 each SUBCUT .WEEKLY [facility] - Exam Quality Assessment: Supplemental Oxygen General: Alert, Oriented, Cooperative, No Acute Distress Lungs: Normal Respiratory Effort, Crackles (rare both bases ) Cardiovascular: Regular Rate, Regular Rhythm GI/Abdominal Exam: Soft, No Distention Extremities: No Pedal Edema. No: Increased Warmth Skin: Warm, Dry Psy/Mental Status: Alert, Normal Affect - Patient Data Lab Results Last 24 hrs: Laboratory Results - last 24 hr 06/15/21 06/16/21 06/16/21 Range/Units 16:43 06:39 07:28 Sodium 137 L (140-148) mmol/L Potassium 5.0 (3.6-5.2) mmol/L Chloride 101 (100-108) mmol/L Carbon Dioxide 26 (21-32) mmol/L Anion Gap 15.0 H (5.0-14.0) mmol/L BUN 31 H (7-18) mg/dL Creatinine 1.3 (0.8-1.3) mg/dL Est Cr Clr Drug Dosing 67.71 mL/min Estimated GFR (MDRD) 55 L (>60) Glucose 198 H (74-106) mg/dL POC Glucose 179 H 191 H (74-106) mg/dL Calcium 8.0 L (8.5-10.1) mg/dL Total Bilirubin 0.4 (0.2-1.0) mg/dL AST 46 H (15-37) U/L ALT 68 (12-78) U/L Alkaline Phosphatase 93 (46-116) U/L Total Protein 6.5 (6.4-8.2) g/dL Albumin 2.6 L (3.4-5.0) g/dL Globulin 3.9 H (2.3-3.5) g/dL Albumin/Globulin Ratio 0.7 L (1.2-2.2) 06/16/21 Range/Units 11:40 Sodium (140-148) mmol/L Potassium (3.6-5.2) mmol/L Chloride (100-108) mmol/L Carbon Dioxide (21-32) mmol/L Anion Gap (5.0-14.0) mmol/L BUN (7-18) mg/dL Creatinine (0.8-1.3) mg/dL Est Cr Clr Drug Dosing mL/min Estimated GFR (MDRD) (>60) Glucose (74-106) mg/dL POC Glucose 340 H (74-106) mg/dL Calcium (8.5-10.1) mg/dL Total Bilirubin (0.2-1.0) mg/dL AST (15-37) U/L ALT (12-78) U/L Alkaline Phosphatase (46-116) U/L Total Protein (6.4-8.2) g/dL Albumin (3.4-5.0) g/dL Globulin (2.3-3.5) g/dL Albumin/Globulin Ratio (1.2-2.2) Result Diagrams: 06/14/21 05:20 06/16/21 06:39 Sepsis Event Note - Evaluation Sepsis Screening Result: No Definite Risk - Focused Exam Vital Signs: Vital Signs Temp Pulse Pulse Resp BP BP Pulse Ox 06/16/21 10:00 36.2 C 78 18 87/46 L 87 L 06/16/21 08:22 65 146/75 H 06/16/21 08:20 146/75 H 06/16/21 07:24 89 L 06/16/21 07:00 35.9 C L 59 L 18 146/75 H 92 L 06/16/21 02:53 35.9 C L 63 18 129/68 90 L 06/16/21 00:40 87 L - Problem List & Annotations (1) Pneumonia due to COVID-19 virus SNOMED Code(s): 096890666161398947 Code(s): U07.1 - COVID-19; J12.82 - PNEUMONIA DUE TO CORONAVIRUS DISEASE 2018 Status: Acute Current Visit: Yes (2) Acute respiratory failure with hypoxia SNOMED Code(s): 06282686, 578381682 Code(s): J96.01 - ACUTE RESPIRATORY FAILURE WITH HYPOXIA Status: Acute Current Visit: Yes (3) Insulin dependent diabetes mellitus SNOMED Code(s): 73366457 Code(s): CLG1868 - Status: Chronic Current Visit: Yes (4) Obesity (BMI 30.0-34.9) SNOMED Code(s): 673908125795789 Code(s): E66.9 - OBESITY, UNSPECIFIED Status: Chronic Current Visit: Yes (5) Coronary artery disease SNOMED Code(s): 22348070 Code(s): I25.10 - ATHSCL HEART DISEASE OF [place] CORONARY ARTERY W/O ANG PCTRS Status: Chronic Current Visit: Yes Qualifiers: Coronary Disease-Associated Artery/Lesion type: elem artery [place] vs. transplanted heart: elem heart Associated angina: without angina Qualified Code(s): I25.10 - Atherosclerotic heart disease of elem coronary artery without angina pectoris - Problem List Review Problem List Initiated/Reviewed/Updated: Yes - My Orders Last 24 Hours: My Active Orders 06/15/21 14:10 Alum Hydrox/Mag Hydrox/Simeth [Mag-Al Plus] 30 ml PO Q4H PRN Calcium Carbonate [Tums] 1,000 mg PO Q2H PRN 06/15/21 14:14 Communication Order [RC] DAILY 06/16/21 16:30 GLUCOSE POC LAB TO COLLECT JPM [POC] QIDACANDBED 06/17/21 05:00 BASIC METABOLIC PANEL,BMP [CHEM] Timed CBC W/O DIFF,HEMOGRAM [HEME] Timed (1) CRP [C-REACTIVE PROTEIN] [CHEM] Timed D-DIMER QUANTITATIVE [COAG] Timed 06/17/21 07:30 GLUCOSE POC LAB TO COLLECT JPM [POC] QIDACANDBED 06/17/21 11:30 GLUCOSE POC LAB TO COLLECT JPM [POC] QIDACANDBED 06/17/21 16:30 GLUCOSE POC LAB TO COLLECT JPM [POC] QIDACANDBED 06/17/21 21:00 GLUCOSE POC LAB TO COLLECT JPM [POC] QIDACANDBED 06/18/21 07:30 GLUCOSE POC LAB TO COLLECT JPM [POC] QIDACANDBED 06/18/21 11:30 GLUCOSE POC LAB TO COLLECT JPM [POC] QIDACANDBED 06/18/21 16:30 GLUCOSE POC LAB TO COLLECT JPM [POC] QIDACANDBED 06/18/21 21:00 GLUCOSE POC LAB TO COLLECT JPM [POC] QIDACANDBED 06/19/21 07:30 GLUCOSE POC LAB TO COLLECT JPM [POC] QIDACANDBED 06/19/21 11:30 GLUCOSE POC LAB TO COLLECT JPM [POC] QIDACANDBED 06/19/21 16:30 GLUCOSE POC LAB TO COLLECT JPM [POC] QIDACANDBED 06/19/21 21:00 GLUCOSE POC LAB TO COLLECT JPM [POC] QIDACANDBED 06/20/21 07:30 GLUCOSE POC LAB TO COLLECT JPM [POC] QIDACANDBED 06/20/21 11:30 GLUCOSE POC LAB TO COLLECT JPM [POC] QIDACANDBED 06/20/21 16:30 GLUCOSE POC LAB TO COLLECT JPM [POC] QIDACANDBED 06/20/21 21:00 GLUCOSE POC LAB TO COLLECT JPM [POC] QIDACANDBED 06/21/21 07:30 GLUCOSE POC LAB TO COLLECT JPM [POC] QIDACANDBED 06/21/21 11:30 GLUCOSE POC LAB TO COLLECT JPM [POC] QIDACANDBED 06/21/21 16:30 GLUCOSE POC LAB TO COLLECT JPM [POC] QIDACANDBED 06/21/21 21:00 GLUCOSE POC LAB TO COLLECT JPM [POC] QIDACANDBED 06/22/21 07:30 GLUCOSE POC LAB TO COLLECT JPM [POC] QIDACANDBED 06/22/21 11:30 GLUCOSE POC LAB TO COLLECT JPM [POC] QIDACANDBED 06/22/21 16:30 GLUCOSE POC LAB TO COLLECT JPM [POC] QIDACANDBED 06/22/21 21:00 GLUCOSE POC LAB TO COLLECT JPM [POC] QIDACANDBED 06/23/21 07:30 GLUCOSE POC LAB TO COLLECT JPM [POC] QIDACANDBED 06/23/21 11:30 GLUCOSE POC LAB TO COLLECT JPM [POC] QIDACANDBED 06/23/21 16:30 GLUCOSE POC LAB TO COLLECT JPM [POC] QIDACANDBED - Plan Plan:: ASSESSMENT AND PLAN - COVID-19 pneumonia-complicated by acute respiratory failure with hypoxia. Symptom onset roughly 10 days prior to admission. Stable overnight but increasing supplemental oxygen requirements throughout the day. Symptomatically he is stable. -Supplemental oxygen, wean as able -Dexamethasone 6 mg daily (day 4) -Remdesivir x5 days -Consider baricitinib if respiratory status declines further -Enoxaparin every 24 hours -Recheck CRP and D-dimer every 2 to 3 days -Isolation precautions Insulin-dependent diabetes mellitus-patient normally uses combination of twice daily basal insulin and mealtime insulin. Blood sugars fairly well controlled. -Continue regular long-acting insulin -Usual dose of mealtime insulin -Medium dose sliding scale supplementation Coronary artery disease-recent stenting has improved his dyspnea some. No chest pain. -Continue medical management Maintenance issues - -DVT prophylaxis-enoxaparin -GI prophylaxis-not indicated -Nutrition-diabetic Disposition -I anticipate discharge home after the hospital stay Primary care physician -Dr Neeraj De Santiago M.D.
[2021-06-16] MEDS: Dexamethasone 4 MG/ML SDV IVPUSH SCH (13:24)
[2021-06-16] MEDS: Enoxaparin 40 MG/0.4 ML Syringe SUBCUT SCH (13:24)
[2021-06-16] MEDS: REMDESIVIR 100 MG in Sodium Chloride 0.9% 100 ML IV SCH (14:16)
[2021-06-16] MEDS: rOPINIRole 0.5 MG Tab PO SCH (20:47)
[2021-06-16] MEDS: Magnesium Oxide 400 MG Tab PO SCH (20:47)
[2021-06-17] MEDS: Formoterol/Mometasone 200-5 MCG 8.8 GM Inhaler IH SCH ×2 (07:37→20:10)
[2021-06-17] MEDS: Pantoprazole 40 MG Tab.CR PO SCH (08:45)
[2021-06-17] MEDS: Azelastine Nasal Soln 30 ML Spray Bottle NASBOTH SCH ×2 (08:46→20:11)
[2021-06-17] MEDS: Cholecalciferol (Vitamin D3) 25 MCG Tab PO SCH (08:47)
[2021-06-17] MEDS: Allopurinol 100 MG Tab PO SCH (08:47)
[2021-06-17] MEDS: guaiFENesin 600 MG Tab.ER PO SCH ×3 (08:48→20:10)
[2021-06-17] MEDS: Aspirin 81 MG Tab.EC PO SCH (08:48)
[2021-06-17] MEDS: Montelukast 10 MG Tab PO SCH (08:48)
[2021-06-17] MEDS: Clopidogrel 75 MG Tab PO SCH (08:48)
[2021-06-17] MEDS: Azithromycin 250 MG Tab PO SCH (08:49)
[2021-06-17] MEDS: Ezetimibe 10 MG Tab PO SCH (08:49)
[2021-06-17] MEDS: Insulin Lispro 100 Unit/ML 3 ML KwikPen SUBCUT SCH ×7 (09:16→20:07)
[2021-06-17] MEDS: Insulin Glargine,Human Rec. Analog 100 Units/ML 3 ML Pen SUBCUT SCH ×2 (09:17→20:11)
[2021-06-17] MEDS: Metoprolol Succinate 25 MG Tab.ER PO SCH (11:12)
--- NOTE | 2021-06-17 12:29 | PCM.PN ---
- General Info Date of Service: 06/17/21 Subjective Update: No acute events overnight. Respiratory status stable but compromised. Still requiring 15 L of supplemental oxygen. He does not feel particularly short of breath. He does have some sinus congestion and postnasal drip. Occasional productive cough. No fevers. No headaches. Appetite acceptable. He gets short of breath and desaturates with activity. D-dimer stable and CRP has improved in the past 48 hours. Functional Status: Reports: Pain Controlled, Tolerating Diet - Review of Systems Pulmonary: Reports: Shortness of Breath, Cough - Patient Data Vitals - Most Recent: Last Vital Signs Temp 35.6 C L 06/17/21 08:49 Pulse 70 06/17/21 11:12 Resp 18 06/17/21 10:00 BP 109/54 L 06/17/21 11:12 Pulse Ox 90 L 06/17/21 10:00 Weight - Most Recent: 119.295 kg I&O - Last 24 Hours: Intake & Output 06/16/21 06/17/21 06/17/21 22:59 06:59 14:59 Intake Total 1400 400 Output Total 900 1225 500 Balance 500 -825 -500 Lab Results Last 24 Hours: Laboratory Results - last 24 hr 06/16/21 06/17/21 06/17/21 Range/Units 16:35 04:15 04:15 WBC 9.5 (4.5-11.0) K/uL RBC 4.44 (4.30-5.90) M/uL Hgb 14.0 (12.0-15.0) g/dL Hct 40.1 (40.0-54.0) % MCV 90 (80-98) fL MCH 32 H (27-31) pg MCHC 35 (32-36) % Plt Count 299 (150-400) K/uL D-Dimer, Quantitative 692.53 H (0.0-500.0) ng/mL Sodium (140-148) mmol/L Potassium (3.6-5.2) mmol/L Chloride (100-108) mmol/L Carbon Dioxide (21-32) mmol/L Anion Gap (5.0-14.0) mmol/L BUN (7-18) mg/dL Creatinine (0.8-1.3) mg/dL Est Cr Clr Drug Dosing mL/min Estimated GFR (MDRD) (>60) Glucose (74-106) mg/dL POC Glucose 297 H (74-106) mg/dL Calcium (8.5-10.1) mg/dL C-Reactive Protein (0.0-0.3) mg/dL 06/17/21 06/17/21 06/17/21 Range/Units 04:15 07:45 11:32 WBC (4.5-11.0) K/uL RBC (4.30-5.90) M/uL Hgb (12.0-15.0) g/dL Hct (40.0-54.0) % MCV (80-98) fL MCH (27-31) pg MCHC (32-36) % Plt Count (150-400) K/uL D-Dimer, Quantitative (0.0-500.0) ng/mL Sodium 135 L (140-148) mmol/L Potassium 4.4 (3.6-5.2) mmol/L Chloride 101 (100-108) mmol/L Carbon Dioxide 22 (21-32) mmol/L Anion Gap 16.4 H (5.0-14.0) mmol/L BUN 33 H (7-18) mg/dL Creatinine 1.4 H (0.8-1.3) mg/dL Est Cr Clr Drug Dosing 62.87 mL/min Estimated GFR (MDRD) 51 L (>60) Glucose 210 H (74-106) mg/dL POC Glucose 150 H 139 H (74-106) mg/dL Calcium 8.2 L (8.5-10.1) mg/dL C-Reactive Protein 1.31 H (0.0-0.3) mg/dL Med Orders - Current: Current Medications Acetaminophen (Acetaminophen 325 Mg Tab) 650 mg PO Q4H PRN PRN Reason: Pain (Mild 1-3)/fever Al Hydroxide/Mg Hydroxide (Aluminum Hydroxide/Magnesium Hydroxide/Simethicone Susp 30 Ml Cup) 30 ml PO Q4H PRN PRN Reason: Indigestion Albuterol (Albuterol 8 Gm Inhaler) 0 gm INH Q2H PRN PRN Reason: Shortness of Breath Allopurinol (Allopurinol 100 Mg Tab) 100 mg PO DAILY [facility] Last Admin: 06/17/21 08:47 Dose: 100 mg Documented by: Amlodipine Besylate (Amlodipine 5 Mg Tab) 2.5 mg PO DAILY [facility] Last Admin: 06/16/21 08:20 Dose: 2.5 mg Documented by: Aspirin (Aspirin 81 Mg Tab.Ec) 81 mg PO DAILY [facility] Last Admin: 06/17/21 08:48 Dose: 81 mg Documented by: Azelastine HCl (Azelastine Nasal Soln 30 Ml [place] Bottle) 0 ml NASBOTH BID [facility] Last Admin: 06/17/21 08:46 Dose: 2 spray Documented by: Azithromycin (Azithromycin 250 Mg Tab) 500 mg PO DAILY [facility] Stop: 06/18/21 09:01 Last Admin: 06/17/21 08:49 Dose: 500 mg Documented by: Benzonatate (Benzonatate 100 Mg Cap) 100 mg PO TID PRN PRN Reason: Cough Last Admin: 06/15/21 16:16 Dose: 100 mg Documented by: Calcium Carbonate/Glycine (Calcium Carbonate 500 Mg Tab.Chew) 1,000 mg PO Q2H PRN PRN Reason: Indigestion Last Admin: 06/15/21 16:16 Dose: 1,000 mg Documented by: Cholecalciferol (Cholecalciferol (Vitamin D3) 25 Mcg Tab) 25 mcg PO DAILY [facility] Last Admin: 06/17/21 08:47 Dose: 25 mcg Documented by: Clopidogrel Bisulfate (Clopidogrel 75 Mg Tab) 75 mg PO DAILY [facility] Last Admin: 06/17/21 08:48 Dose: 75 mg Documented by: Dexamethasone (Dexamethasone 4 Mg/Ml Sdv) 6 mg IVPUSH Q24H [facility] Stop: 06/22/21 14:01 Last Admin: 06/16/21 13:24 Dose: 6 mg Documented by: Ezetimibe (Ezetimibe 10 Mg Tab) 10 mg PO DAILY [facility] Last Admin: 06/17/21 08:49 Dose: 10 mg Documented by: Enoxaparin Sodium (Enoxaparin 40 Mg/0.4 Ml Syringe) 40 mg SUBCUT Q24H [facility] Last Admin: 06/16/21 13:24 Dose: 40 mg Documented by: Guaifenesin (Guaifenesin 600 Mg Tab.Er) 600 mg PO TID [facility] Last Admin: 06/17/21 08:48 Dose: 600 mg Documented by: Guaifenesin/Dextromethorphan (Guaifenesin/Dextromethorphan 100-10 Mg/5 Ml Soln 10 Ml Cup) 10 ml PO Q4H PRN PRN Reason: Cough Last Admin: 06/16/21 10:12 Dose: 10 ml Documented by: Remdesivir 100 mg/ Sodium (Chloride) 100 mls @ 100 mls/hr IV Q24H [facility] Stop: 06/17/21 14:59 Last Admin: 06/16/21 14:16 Dose: 100 mls/hr Documented by: Insulin Glargine (Insulin Glargine,Human Rec. Analog 100 Units/Ml 3 Ml Pen) 74 units SUBCUT BEDTIME [facility] Last Admin: 06/16/21 20:48 Dose: 74 units Documented by: Insulin Glargine (Insulin Glargine,Human Rec. Analog 100 Units/Ml 3 Ml Pen) 46 units SUBCUT QAM [facility] Last Admin: 06/17/21 09:17 Dose: 46 units Documented by: Insulin Human Lispro (Insulin Lispro 100 Unit/Ml 3 Ml Kwikpen) 0 unit SUBCUT QIDACANDBED [facility]; Protocol Last Admin: 06/17/21 09:16 Dose: 2 units Documented by: Insulin Human Lispro (Insulin Lispro 100 Unit/Ml 3 Ml Kwikpen) 28 unit SUBCUT TIDMEALS [facility] Last Admin: 06/17/21 09:17 Dose: 28 units Documented by: Lorazepam (Lorazepam 2 Mg/Ml Sdv) 0.5 mg IVPUSH Q4H PRN PRN Reason: Nausea/Vomiting Magnesium Hydroxide (Magnesium Hydroxide 400 Mg/5 Ml Susp 30 Ml Cup) 30 ml PO Q12H PRN PRN Reason: Constipation Magnesium Oxide (Magnesium Oxide 400 Mg Tab) 400 mg PO BEDTIME [facility] Last Admin: 06/16/21 20:47 Dose: 400 mg Documented by: Melatonin (Melatonin 3 Mg Tab) 9 mg PO BEDTIME PRN PRN Reason: Sleep Metoprolol Succinate (Metoprolol Succinate 25 Mg Tab.Er) 25 mg PO DAILY [facility] Last Admin: 06/17/21 11:12 Dose: 25 mg Documented by: Mometasone Furoate/Formoterol Fumar (Formoterol/Mometasone 200-5 Mcg 8.8 Gm Inhaler) 2 puff IH BIDRT [facility] Last Admin: 06/17/21 07:37 Dose: 2 puff Documented by: Montelukast Sodium (Montelukast 10 Mg Tab) 10 mg PO DAILY [facility] Last Admin: 06/17/21 08:48 Dose: 10 mg Documented by: Ondansetron HCl (Ondansetron 4 Mg/2 Ml Sdv) 4 mg IV Q6H PRN PRN Reason: Nausea/Vomiting Ondansetron HCl (Ondansetron 4 Mg Tab.Dis) 4 mg PO Q6H PRN PRN Reason: Nausea able to take PO Pantoprazole Sodium (Pantoprazole 40 Mg Tab.Cr) 40 mg PO ACBREAKFAST [facility] Last Admin: 06/17/21 08:45 Dose: 40 mg Documented by: Kike 3mg 0 each SUBCUT We@0900 [facility] Last Admin: 06/14/21 10:40 Dose: 1 each Documented by: Ramipril (Ramipril 2.5 Mg Cap) 5 mg PO DAILY [facility] Last Admin: 06/16/21 08:22 Dose: 5 mg Documented by: Ropinirole HCl (Ropinirole 0.5 Mg Tab) 0.5 mg PO BEDTIME [facility] Last Admin: 06/16/21 20:47 Dose: 0.5 mg Documented by: Senna/Docusate Sodium (Docusate Sodium/Sennosides 50-8.6 Mg Tab) 1 tab PO BID PRN PRN Reason: Constipation Discontinued Medications Acetaminophen (Acetaminophen 325 Mg Tab) 650 mg PO Q4H PRN PRN Reason: Fever Greater Than 101 Last Admin: 06/13/21 13:47 Dose: 650 mg Documented by: Dexamethasone (Dexamethasone 4 Mg/Ml Sdv) 6 mg IVPUSH DAILY [facility] Stop: 06/22/21 09:01 Last Admin: 06/13/21 13:48 Dose: 6 mg Documented by: Enoxaparin Sodium (Enoxaparin 40 Mg/0.4 Ml Syringe) 40 mg SUBCUT DAILY [facility] Last Admin: 06/13/21 13:57 Dose: 40 mg Documented by: Remdesivir 200 mg/ Sodium (Chloride) 250 mls @ 250 mls/hr IV ONETIME ONE Stop: 06/13/21 14:14 Last Admin: 06/13/21 13:51 Dose: 250 mls/hr Documented by: Insulin Human Lispro (Insulin Lispro 100 Unit/Ml 3 Ml Kwikpen) 18 unit SUBCUT TIDMEALS [facility] Last Admin: 06/14/21 08:43 Dose: 18 units Documented by: Patient Own Medication (Patient's Own Medication 1 Each) 0 each SUBCUT .WEEKLY [facility] - Exam Quality Assessment: Supplemental Oxygen General: Alert, Oriented, Cooperative, No Acute Distress Lungs: Normal Respiratory Effort GI/Abdominal Exam: Soft, No Distention Extremities: No Pedal Edema Skin: Warm, Dry Psy/Mental Status: Alert, Normal Affect - Patient Data Lab Results Last 24 hrs: Laboratory Results - last 24 hr 06/16/21 06/17/21 06/17/21 Range/Units 16:35 04:15 04:15 WBC 9.5 (4.5-11.0) K/uL RBC 4.44 (4.30-5.90) M/uL Hgb 14.0 (12.0-15.0) g/dL Hct 40.1 (40.0-54.0) % MCV 90 (80-98) fL MCH 32 H (27-31) pg MCHC 35 (32-36) % Plt Count 299 (150-400) K/uL D-Dimer, Quantitative 692.53 H (0.0-500.0) ng/mL Sodium (140-148) mmol/L Potassium (3.6-5.2) mmol/L Chloride (100-108) mmol/L Carbon Dioxide (21-32) mmol/L Anion Gap (5.0-14.0) mmol/L BUN (7-18) mg/dL Creatinine (0.8-1.3) mg/dL Est Cr Clr Drug Dosing mL/min Estimated GFR (MDRD) (>60) Glucose (74-106) mg/dL POC Glucose 297 H (74-106) mg/dL Calcium (8.5-10.1) mg/dL C-Reactive Protein (0.0-0.3) mg/dL 06/17/21 06/17/21 06/17/21 Range/Units 04:15 07:45 11:32 WBC (4.5-11.0) K/uL RBC (4.30-5.90) M/uL Hgb (12.0-15.0) g/dL Hct (40.0-54.0) % MCV (80-98) fL MCH (27-31) pg MCHC (32-36) % Plt Count (150-400) K/uL D-Dimer, Quantitative (0.0-500.0) ng/mL Sodium 135 L (140-148) mmol/L Potassium 4.4 (3.6-5.2) mmol/L Chloride 101 (100-108) mmol/L Carbon Dioxide 22 (21-32) mmol/L Anion Gap 16.4 H (5.0-14.0) mmol/L BUN 33 H (7-18) mg/dL Creatinine 1.4 H (0.8-1.3) mg/dL Est Cr Clr Drug Dosing 62.87 mL/min Estimated GFR (MDRD) 51 L (>60) Glucose 210 H (74-106) mg/dL POC Glucose 150 H 139 H (74-106) mg/dL Calcium 8.2 L (8.5-10.1) mg/dL C-Reactive Protein 1.31 H (0.0-0.3) mg/dL Result Diagrams: 06/17/21 04:15 06/17/21 04:15 Sepsis Event Note - Evaluation Sepsis Screening Result: No Definite Risk - Focused Exam Vital Signs: Vital Signs Temp Pulse Pulse Resp BP BP Pulse Ox 06/17/21 11:12 70 109/54 L 06/17/21 10:00 76 18 90 L 06/17/21 08:49 35.6 C L 66 18 109/54 L 84 L 06/17/21 07:45 90 L 06/17/21 01:47 36.0 C L 60 18 116/56 L 90 L 06/17/21 01:19 94 L - Problem List & Annotations (1) Pneumonia due to COVID-19 virus SNOMED Code(s): 887511507751607478 Code(s): U07.1 - COVID-19; J12.82 - PNEUMONIA DUE TO CORONAVIRUS DISEASE 2019 Status: Acute Current Visit: Yes (2) Acute respiratory failure with hypoxia SNOMED Code(s): 84229417, 312544286 Code(s): J96.01 - ACUTE RESPIRATORY FAILURE WITH HYPOXIA Status: Acute Current Visit: Yes (3) Insulin dependent diabetes mellitus SNOMED Code(s): 61020751 Code(s): JKC9313 - Status: Chronic Current Visit: Yes (4) Obesity (BMI 30.0-34.9) SNOMED Code(s): 772849247279756 Code(s): E66.9 - OBESITY, UNSPECIFIED Status: Chronic Current Visit: Yes (5) Coronary artery disease SNOMED Code(s): 76875674 Code(s): I25.10 - ATHSCL HEART DISEASE OF [place] CORONARY ARTERY W/O ANG PCTRS Status: Chronic Current Visit: Yes Qualifiers: Coronary Disease-Associated Artery/Lesion type: [place] artery [place] vs. transplanted heart: [place] heart Associated angina: without angina Qualified Code(s): I25.10 - Atherosclerotic heart disease of [place] coronary artery without angina pectoris - Problem List Review Problem List Initiated/Reviewed/Updated: Yes - My Orders Last 24 Hours: My Active Orders 06/17/21 16:30 GLUCOSE POC LAB TO COLLECT JPM [POC] QIDACANDBED 06/17/21 21:00 GLUCOSE POC LAB TO COLLECT JPM [POC] QIDACANDBED 06/18/21 07:30 GLUCOSE POC LAB TO COLLECT JPM [POC] QIDACANDBED 06/18/21 11:30 GLUCOSE POC LAB TO COLLECT JPM [POC] QIDACANDBED 06/18/21 16:30 GLUCOSE POC LAB TO COLLECT JPM [POC] QIDACANDBED 06/18/21 21:00 GLUCOSE POC LAB TO COLLECT JPM [POC] QIDACANDBED 06/19/21 07:30 GLUCOSE POC LAB TO COLLECT JPM [POC] QIDACANDBED 06/19/21 11:30 GLUCOSE POC LAB TO COLLECT JPM [POC] QIDACANDBED 06/19/21 16:30 GLUCOSE POC LAB TO COLLECT JPM [POC] QIDACANDBED 06/19/21 21:00 GLUCOSE POC LAB TO COLLECT JPM [POC] QIDACANDBED 06/20/21 07:30 GLUCOSE POC LAB TO COLLECT JPM [POC] QIDACANDBED 06/20/21 11:30 GLUCOSE POC LAB TO COLLECT JPM [POC] QIDACANDBED 06/20/21 16:30 GLUCOSE POC LAB TO COLLECT JPM [POC] QIDACANDBED 06/20/21 21:00 GLUCOSE POC LAB TO COLLECT JPM [POC] QIDACANDBED 06/21/21 07:30 GLUCOSE POC LAB TO COLLECT JPM [POC] QIDACANDBED 06/21/21 11:30 GLUCOSE POC LAB TO COLLECT JPM [POC] QIDACANDBED 06/21/21 16:30 GLUCOSE POC LAB TO COLLECT JPM [POC] QIDACANDBED 06/21/21 21:00 GLUCOSE POC LAB TO COLLECT JPM [POC] QIDACANDBED 06/22/21 07:30 GLUCOSE POC LAB TO COLLECT JPM [POC] QIDACANDBED 06/22/21 11:30 GLUCOSE POC LAB TO COLLECT JPM [POC] QIDACANDBED 06/22/21 16:30 GLUCOSE POC LAB TO COLLECT JPM [POC] QIDACANDBED 06/22/21 21:00 GLUCOSE POC LAB TO COLLECT JPM [POC] QIDACANDBED 06/23/21 07:30 GLUCOSE POC LAB TO COLLECT JPM [POC] QIDACANDBED 06/23/21 11:30 GLUCOSE POC LAB TO COLLECT JPM [POC] QIDACANDBED 06/23/21 16:30 GLUCOSE POC LAB TO COLLECT JPM [POC] QIDACANDBED - Plan Plan:: ASSESSMENT AND PLAN - COVID-19 pneumonia-complicated by acute respiratory failure with hypoxia. Symptom onset about 06/07. Stable overnight at 15 L. D-dimer stable, CRP slightly better. Tolerating treatment so far. We did discuss the addition of baricitinib but he felt that the risks were bigger than the potential benefits. -Supplemental oxygen, wean as able -Dexamethasone 6 mg daily (day 5) -Remdesivir x5 days -Consider baricitinib if respiratory status declines further (patient declined today) -Enoxaparin every 24 hours -Recheck CRP and D-dimer every 2 days -Isolation precautions Insulin-dependent diabetes mellitus-patient normally uses combination of twice daily basal insulin and mealtime insulin. Blood sugars fairly well controlled. -Continue regular long-acting insulin -Usual dose of mealtime insulin -Medium dose sliding scale supplementation Coronary artery disease-recent stenting has improved his dyspnea some. No chest pain. -Continue medical management Maintenance issues - -DVT prophylaxis-enoxaparin -GI prophylaxis-not indicated -Nutrition-diabetic Disposition -I anticipate discharge home after the hospital stay Primary care physician -Dr Neeraj De Santiago M.D.
[2021-06-17] MEDS: Enoxaparin 40 MG/0.4 ML Syringe SUBCUT SCH (13:01)
[2021-06-17] MEDS: Dexamethasone 4 MG/ML SDV IVPUSH SCH (13:01)
[2021-06-17] MEDS: REMDESIVIR 100 MG in Sodium Chloride 0.9% 100 ML IV SCH (13:08)
[2021-06-17] MEDS: amLODIPine 5 MG Tab PO SCH (13:50)
[2021-06-17] MEDS: guaiFENesin/Dextromethorphan 100-10 MG/5 ML Soln 10 ML Cup PO PRN ×2 (13:52→20:22)
[2021-06-17] MEDS: Magnesium Oxide 400 MG Tab PO SCH (20:10)
[2021-06-17] MEDS: rOPINIRole 0.5 MG Tab PO SCH (20:10)
[2021-06-18] MEDS: Formoterol/Mometasone 200-5 MCG 8.8 GM Inhaler IH SCH ×2 (07:26→22:02)
[2021-06-18] MEDS: Insulin Lispro 100 Unit/ML 3 ML KwikPen SUBCUT SCH ×8 (07:43→21:23)
[2021-06-18] MEDS: Pantoprazole 40 MG Tab.CR PO SCH (07:44)
[2021-06-18] MEDS: Insulin Glargine,Human Rec. Analog 100 Units/ML 3 ML Pen SUBCUT SCH ×2 (08:40→22:03)
[2021-06-18] MEDS: Aspirin 81 MG Tab.EC PO SCH (08:46)
[2021-06-18] MEDS: Azelastine Nasal Soln 30 ML Spray Bottle NASBOTH SCH ×2 (08:46→22:01)
[2021-06-18] MEDS: Montelukast 10 MG Tab PO SCH (08:47)
[2021-06-18] MEDS: Cholecalciferol (Vitamin D3) 25 MCG Tab PO SCH (08:47)
[2021-06-18] MEDS: Azithromycin 250 MG Tab PO SCH (08:47)
[2021-06-18] MEDS: guaiFENesin 600 MG Tab.ER PO SCH ×3 (08:47→22:01)
[2021-06-18] MEDS: Clopidogrel 75 MG Tab PO SCH (08:47)
[2021-06-18] MEDS: Allopurinol 100 MG Tab PO SCH (08:47)
[2021-06-18] MEDS: Ezetimibe 10 MG Tab PO SCH (08:47)
[2021-06-18] MEDS: Metoprolol Succinate 25 MG Tab.ER PO SCH (08:48)
--- NOTE | 2021-06-18 12:15 | PCM.PN ---
- General Info Date of Service: 06/18/21 Subjective Update: No acute events overnight. Patient did have a low-grade fever today. He thinks his breathing is a little better today. Able to tolerate short periods of time on his belly. Still requiring 15 L of oxygen. He has been urinating frequently. Blood sugars have been fairly well controlled though they seem to be trending down towards too low. He is adamant that he stick with his usual dosing. Functional Status: Reports: Pain Controlled, Tolerating Diet - Patient Data Vitals - Most Recent: Last Vital Signs Temp 37.2 C 06/18/21 11:28 Pulse 95 06/18/21 10:33 Resp 18 06/18/21 10:33 BP 108/59 L 06/18/21 10:33 Pulse Ox 95 06/18/21 10:33 Weight - Most Recent: 119.295 kg I&O - Last 24 Hours: Intake & Output 06/17/21 06/18/21 06/18/21 23:59 06:59 14:59 Intake Total 620 Output Total 250 Balance 370 Lab Results Last 24 Hours: Laboratory Results - last 24 hr 06/17/21 06/18/21 06/18/21 Range/Units 16:35 07:32 11:34 POC Glucose 97 85 144 H (74-106) mg/dL Med Orders - Current: Current Medications Acetaminophen (Acetaminophen 325 Mg Tab) 650 mg PO Q4H PRN PRN Reason: Pain (Mild 1-3)/fever Last Admin: 06/18/21 10:58 Dose: 650 mg Documented by: Al Hydroxide/Mg Hydroxide (Aluminum Hydroxide/Magnesium Hydroxide/Simethicone Susp 30 Ml Cup) 30 ml PO Q4H PRN PRN Reason: Indigestion Albuterol (Albuterol 8 Gm Inhaler) 0 gm INH Q2H PRN PRN Reason: Shortness of Breath Last Admin: 06/18/21 11:33 Dose: 2 puff Documented by: Allopurinol (Allopurinol 100 Mg Tab) 100 mg PO DAILY [facility] Last Admin: 06/18/21 08:47 Dose: 100 mg Documented by: Amlodipine Besylate (Amlodipine 5 Mg Tab) 2.5 mg PO DAILY [facility] Last Admin: 06/17/21 13:50 Dose: Not Given Documented by: Aspirin (Aspirin 81 Mg Tab.Ec) 81 mg PO DAILY [facility] Last Admin: 06/18/21 08:46 Dose: 81 mg Documented by: Azelastine HCl (Azelastine Nasal Soln 30 Ml [place] Bottle) 0 ml NASBOTH BID [facility] Last Admin: 06/18/21 08:46 Dose: 2 spray Documented by: Benzonatate (Benzonatate 100 Mg Cap) 100 mg PO TID PRN PRN Reason: Cough Last Admin: 06/15/21 16:16 Dose: 100 mg Documented by: Calcium Carbonate/Glycine (Calcium Carbonate 500 Mg Tab.Chew) 1,000 mg PO Q2H PRN PRN Reason: Indigestion Last Admin: 06/15/21 16:16 Dose: 1,000 mg Documented by: Cholecalciferol (Cholecalciferol (Vitamin D3) 25 Mcg Tab) 25 mcg PO DAILY [facility] Last Admin: 06/18/21 08:47 Dose: 25 mcg Documented by: Clopidogrel Bisulfate (Clopidogrel 75 Mg Tab) 75 mg PO DAILY [facility] Last Admin: 06/18/21 08:47 Dose: 75 mg Documented by: Dexamethasone (Dexamethasone 4 Mg/Ml Sdv) 6 mg IVPUSH Q24H [facility] Stop: 06/22/21 14:01 Last Admin: 06/17/21 13:01 Dose: 6 mg Documented by: Ezetimibe (Ezetimibe 10 Mg Tab) 10 mg PO DAILY [facility] Last Admin: 06/18/21 08:47 Dose: 10 mg Documented by: Enoxaparin Sodium (Enoxaparin 40 Mg/0.4 Ml Syringe) 40 mg SUBCUT Q24H [facility] Last Admin: 06/17/21 13:01 Dose: 40 mg Documented by: Guaifenesin (Guaifenesin 600 Mg Tab.Er) 600 mg PO TID [facility] Last Admin: 06/18/21 08:47 Dose: 600 mg Documented by: Guaifenesin/Dextromethorphan (Guaifenesin/Dextromethorphan 100-10 Mg/5 Ml Soln 10 Ml Cup) 10 ml PO Q4H PRN PRN Reason: Cough Last Admin: 06/17/21 20:22 Dose: 10 ml Documented by: Insulin Glargine (Insulin Glargine,Human Rec. Analog 100 Units/Ml 3 Ml Pen) 74 units SUBCUT BEDTIME [facility] Last Admin: 06/17/21 20:11 Dose: 74 units Documented by: Insulin Glargine (Insulin Glargine,Human Rec. Analog 100 Units/Ml 3 Ml Pen) 46 units SUBCUT QAM [facility] Last Admin: 06/18/21 08:40 Dose: 46 units Documented by: Insulin Human Lispro (Insulin Lispro 100 Unit/Ml 3 Ml Kwikpen) 0 unit SUBCUT QIDACANDBED [facility]; Protocol Last Admin: 06/18/21 11:42 Dose: Not Given Documented by: Insulin Human Lispro (Insulin Lispro 100 Unit/Ml 3 Ml Kwikpen) 28 unit SUBCUT TIDMEALS [facility] Last Admin: 06/18/21 08:40 Dose: 26 units Documented by: Lorazepam (Lorazepam 2 Mg/Ml Sdv) 0.5 mg IVPUSH Q4H PRN PRN Reason: Nausea/Vomiting Magnesium Hydroxide (Magnesium Hydroxide 400 Mg/5 Ml Susp 30 Ml Cup) 30 ml PO Q12H PRN PRN Reason: Constipation Magnesium Oxide (Magnesium Oxide 400 Mg Tab) 400 mg PO BEDTIME [facility] Last Admin: 06/17/21 20:10 Dose: 400 mg Documented by: Melatonin (Melatonin 3 Mg Tab) 9 mg PO BEDTIME PRN PRN Reason: Sleep Metoprolol Succinate (Metoprolol Succinate 25 Mg Tab.Er) 25 mg PO DAILY [facility] Last Admin: 06/18/21 08:48 Dose: 25 mg Documented by: Mometasone Furoate/Formoterol Fumar (Formoterol/Mometasone 200-5 Mcg 8.8 Gm Inhaler) 2 puff IH BIDRT [facility] Last Admin: 06/18/21 07:26 Dose: 2 puff Documented by: Montelukast Sodium (Montelukast 10 Mg Tab) 10 mg PO DAILY [facility] Last Admin: 06/18/21 08:47 Dose: 10 mg Documented by: Ondansetron HCl (Ondansetron 4 Mg/2 Ml Sdv) 4 mg IV Q6H PRN PRN Reason: Nausea/Vomiting Ondansetron HCl (Ondansetron 4 Mg Tab.Dis) 4 mg PO Q6H PRN PRN Reason: Nausea able to take PO Pantoprazole Sodium (Pantoprazole 40 Mg Tab.Cr) 40 mg PO ACBREAKFAST [facility] Last Admin: 06/18/21 07:44 Dose: 40 mg Documented by: Trulicity 3mg 0 each SUBCUT We@0900 [facility] Last Admin: 06/14/21 10:40 Dose: 1 each Documented by: Ramipril (Ramipril 2.5 Mg Cap) 5 mg PO DAILY [facility] Last Admin: 06/17/21 13:49 Dose: Not Given Documented by: Ropinirole HCl (Ropinirole 0.5 Mg Tab) 0.5 mg PO BEDTIME [facility] Last Admin: 06/17/21 20:10 Dose: 0.5 mg Documented by: Senna/Docusate Sodium (Docusate Sodium/Sennosides 50-8.6 Mg Tab) 1 tab PO BID PRN PRN Reason: Constipation Discontinued Medications Acetaminophen (Acetaminophen 325 Mg Tab) 650 mg PO Q4H PRN PRN Reason: Fever Greater Than 101 Last Admin: 06/13/21 13:47 Dose: 650 mg Documented by: Azithromycin (Azithromycin 250 Mg Tab) 500 mg PO DAILY [facility] Stop: 06/18/21 09:01 Last Admin: 06/18/21 08:47 Dose: 500 mg Documented by: Dexamethasone (Dexamethasone 4 Mg/Ml Sdv) 6 mg IVPUSH DAILY [facility] Stop: 06/22/21 09:01 Last Admin: 06/13/21 13:48 Dose: 6 mg Documented by: Enoxaparin Sodium (Enoxaparin 40 Mg/0.4 Ml Syringe) 40 mg SUBCUT DAILY [facility] Last Admin: 06/13/21 13:57 Dose: 40 mg Documented by: Remdesivir 200 mg/ Sodium (Chloride) 250 mls @ 250 mls/hr IV ONETIME ONE Stop: 06/13/21 14:14 Last Admin: 06/13/21 13:51 Dose: 250 mls/hr Documented by: Remdesivir 100 mg/ Sodium (Chloride) 100 mls @ 100 mls/hr IV Q24H [facility] Stop: 06/17/21 14:59 Last Admin: 06/17/21 13:08 Dose: 100 mls/hr Documented by: Insulin Human Lispro (Insulin Lispro 100 Unit/Ml 3 Ml Kwikpen) 18 unit SUBCUT TIDMEALS [facility] Last Admin: 06/14/21 08:43 Dose: 18 units Documented by: Patient Own Medication (Patient's Own Medication 1 Each) 0 each SUBCUT .WEEKLY [facility] - Exam Quality Assessment: Supplemental Oxygen General: Alert, Oriented, Cooperative, No Acute Distress Lungs: Normal Respiratory Effort GI/Abdominal Exam: Soft, No Distention Psy/Mental Status: Alert, Normal Affect - Patient Data Lab Results Last 24 hrs: Laboratory Results - last 24 hr 06/17/21 06/18/21 06/18/21 Range/Units 16:35 07:32 11:34 POC Glucose 97 85 144 H (74-106) mg/dL Result Diagrams: 06/17/21 04:15 06/17/21 04:15 Sepsis Event Note - Evaluation Sepsis Screening Result: No Definite Risk - Focused Exam Vital Signs: Vital Signs Temp Temp Pulse Pulse Resp BP BP 06/18/21 11:28 37.2 C 06/18/21 10:58 37.5 C 06/18/21 10:33 37.8 C 95 18 108/59 L 06/18/21 08:48 79 102/52 L 06/18/21 08:00 06/18/21 07:38 36.9 C 75 20 102/52 L 06/18/21 07:19 06/18/21 03:00 36.2 C 77 18 116/55 L Pulse Ox Pulse Ox 06/18/21 11:28 06/18/21 10:58 06/18/21 10:33 95 06/18/21 08:48 06/18/21 08:00 93 L 06/18/21 07:38 89 L 06/18/21 07:19 94 L 06/18/21 03:00 93 L - Problem List & Annotations (1) Pneumonia due to COVID-19 virus SNOMED Code(s): 056187112787568603 Code(s): U07.1 - COVID-19; J12.82 - PNEUMONIA DUE TO CORONAVIRUS DISEASE 2019 Status: Acute Current Visit: Yes (2) Acute respiratory failure with hypoxia SNOMED Code(s): 94252698, 780040992 Code(s): J96.01 - ACUTE RESPIRATORY FAILURE WITH HYPOXIA Status: Acute Current Visit: Yes (3) Insulin dependent diabetes mellitus SNOMED Code(s): 70244296 Code(s): ANC0963 - Status: Chronic Current Visit: Yes (4) Obesity (BMI 30.0-34.9) SNOMED Code(s): 230205420448280 Code(s): E66.9 - OBESITY, UNSPECIFIED Status: Chronic Current Visit: Yes (5) Coronary artery disease SNOMED Code(s): 99567574 Code(s): I25.10 - ATHSCL HEART DISEASE OF [place] CORONARY ARTERY W/O ANG P [employer] Status: Chronic Current Visit: Yes Qualifiers: Coronary Disease-Associated Artery/Lesion type: [place] artery [place] vs. transplanted heart: [place] heart Associated angina: without angina Qualified Code(s): I25.10 - Atherosclerotic heart disease of [place] coronary artery without angina pectoris - Problem List Review Problem List Initiated/Reviewed/Updated: Yes - My Orders Last 24 Hours: My Active Orders 06/18/21 12:13 Furosemide [Lasix] 40 mg IVPUSH NOW ONE 06/18/21 16:30 GLUCOSE POC LAB TO COLLECT JPM [POC] QIDACANDBED 06/18/21 21:00 GLUCOSE POC LAB TO COLLECT JPM [POC] QIDACANDBED 06/19/21 05:00 CBC W/O DIFF,HEMOGRAM [HEME] Timed (1) COMPREHENSIVE METABOLIC PN,CMP [CHEM] Timed CRP [C-REACTIVE PROTEIN] [CHEM] Timed D-DIMER QUANTITATIVE [COAG] Timed 06/19/21 07:30 GLUCOSE POC LAB TO COLLECT JPM [POC] QIDACANDBED 06/19/21 11:30 GLUCOSE POC LAB TO COLLECT JPM [POC] QIDACANDBED 06/19/21 16:30 GLUCOSE POC LAB TO COLLECT JPM [POC] QIDACANDBED 06/19/21 21:00 GLUCOSE POC LAB TO COLLECT JPM [POC] QIDACANDBED 06/20/21 07:30 GLUCOSE POC LAB TO COLLECT JPM [POC] QIDACANDBED 06/20/21 11:30 GLUCOSE POC LAB TO COLLECT JPM [POC] QIDACANDBED 06/20/21 16:30 GLUCOSE POC LAB TO COLLECT JPM [POC] QIDACANDBED 06/20/21 21:00 GLUCOSE POC LAB TO COLLECT JPM [POC] QIDACANDBED 06/21/21 07:30 GLUCOSE POC LAB TO COLLECT JPM [POC] QIDACANDBED 06/21/21 11:30 GLUCOSE POC LAB TO COLLECT JPM [POC] QIDACANDBED 06/21/21 16:30 GLUCOSE POC LAB TO COLLECT JPM [POC] QIDACANDBED 06/21/21 21:00 GLUCOSE POC LAB TO COLLECT JPM [POC] QIDACANDBED 06/22/21 07:30 GLUCOSE POC LAB TO COLLECT JPM [POC] QIDACANDBED 06/22/21 11:30 GLUCOSE POC LAB TO COLLECT JPM [POC] QIDACANDBED 06/22/21 16:30 GLUCOSE POC LAB TO COLLECT JPM [POC] QIDACANDBED 06/22/21 21:00 GLUCOSE POC LAB TO COLLECT JPM [POC] QIDACANDBED 06/23/21 07:30 GLUCOSE POC LAB TO COLLECT JPM [POC] QIDACANDBED 06/23/21 11:30 GLUCOSE POC LAB TO COLLECT JPM [POC] QIDACANDBED 06/23/21 16:30 GLUCOSE POC LAB TO COLLECT JPM [POC] QIDACANDBED - Plan Plan:: ASSESSMENT AND PLAN - COVID-19 pneumonia-complicated by acute respiratory failure with hypoxia. Symptom onset about 06/07. Oxygenation stable with supplemental oxygen requirements at 15 L. Tolerating treatments. Declined baricitinib yesterday. Symptomatically feeling better today. -Supplemental oxygen, wean as able -Dexamethasone 6 mg daily (day 5) -Remdesivir x5 days -Consider baricitinib if respiratory status declines further (patient declined 06/17) -Enoxaparin every 24 hours -Recheck CRP and D-dimer every 2 days -Isolation precautions Insulin-dependent diabetes mellitus-patient normally uses combination of twice daily basal insulin and mealtime insulin. Blood sugars well controlled. -Continue regular long-acting insulin -Usual dose of mealtime insulin -Medium dose sliding scale supplementation Coronary artery disease-recent stenting has improved his dyspnea some. No chest pain. -Continue medical management Maintenance issues - -DVT prophylaxis-enoxaparin -GI prophylaxis-not indicated -Nutrition-diabetic Disposition -I anticipate discharge home after the hospital stay Primary care physician -Dr Neeraj De Santiago M.D.
[2021-06-18] MEDS ORDERED: Furosemide 40 MG/4 ML VIAL IVPUSH ONE (12:25)
[2021-06-18] MEDS: Enoxaparin 40 MG/0.4 ML Syringe SUBCUT SCH (13:24)
[2021-06-18] MEDS: Dexamethasone 4 MG/ML SDV IVPUSH SCH (14:31)
[2021-06-18] MEDS: Magnesium Oxide 400 MG Tab PO SCH (22:01)
[2021-06-18] MEDS: rOPINIRole 0.5 MG Tab PO SCH (22:01)
[2021-06-18] MEDS: guaiFENesin/Dextromethorphan 100-10 MG/5 ML Soln 10 ML Cup PO PRN (22:07)
[2021-06-19] MEDS: Formoterol/Mometasone 200-5 MCG 8.8 GM Inhaler IH SCH ×2 (07:34→20:33)
[2021-06-19] MEDS: Insulin Lispro 100 Unit/ML 3 ML KwikPen SUBCUT SCH ×7 (08:11→20:32)
[2021-06-19] MEDS: Insulin Glargine,Human Rec. Analog 100 Units/ML 3 ML Pen SUBCUT SCH ×2 (08:13→20:34)
[2021-06-19] MEDS: Aspirin 81 MG Tab.EC PO SCH (08:59)
[2021-06-19] MEDS: Pantoprazole 40 MG Tab.CR PO SCH (08:59)
[2021-06-19] MEDS: guaiFENesin 600 MG Tab.ER PO SCH ×3 (08:59→20:40)
[2021-06-19] MEDS: Azelastine Nasal Soln 30 ML Spray Bottle NASBOTH SCH ×2 (08:59→20:32)
[2021-06-19] MEDS: Allopurinol 100 MG Tab PO SCH (09:00)
[2021-06-19] MEDS: Clopidogrel 75 MG Tab PO SCH (09:00)
[2021-06-19] MEDS: Cholecalciferol (Vitamin D3) 25 MCG Tab PO SCH (09:00)
[2021-06-19] MEDS: Metoprolol Succinate 25 MG Tab.ER PO SCH (09:00)
[2021-06-19] MEDS: Montelukast 10 MG Tab PO SCH (09:00)
[2021-06-19] MEDS: Ezetimibe 10 MG Tab PO SCH (09:00)
[2021-06-19] MEDS: Mometasone Furoate Nasal Spray 17 GM Canister NASBOTH SCH ×2 (14:00→20:39)
[2021-06-19] MEDS: Dexamethasone 4 MG/ML SDV IVPUSH SCH (14:00)
[2021-06-19] MEDS: Enoxaparin 40 MG/0.4 ML Syringe SUBCUT SCH (14:01)
--- NOTE | 2021-06-19 14:39 | PCM.PN ---
- General Info Date of Service: 06/19/21 Subjective Update: Mr. Ross has remained stable since yesterday and reports subjectively that he feels improved over the past few days. Appetite remains good and his energy lev el does seem to be improving. He continues to require high level of supplemental oxygen to maintain adequate saturations. Functional Status: Reports: Tolerating Diet, Urinating - Review of Systems General: Reports: Weakness, Fatigue. Denies: Fever, Chills Pulmonary: Reports: Shortness of Breath. Denies: Pleuritic Chest Pain, Cough, Sputum, Hemoptysis, Wheezing Cardiovascular: Reports: Dyspnea on Exertion. Denies: Chest Pain, Palpitations, Orthopnea, PND, Edema, Lightheadedness Gastrointestinal: Reports: No Symptoms Genitourinary: Reports: No Symptoms - Patient Data Vitals - Most Recent: Last Vital Signs Temp 98.7 F 06/19/21 11:58 Pulse 75 06/19/21 11:58 Resp 26 H 06/19/21 11:58 BP 124/77 06/19/21 11:58 Pulse Ox 92 L 06/19/21 13:50 Weight - Most Recent: 263 lb I&O - Last 24 Hours: Intake & Output 06/18/21 06/19/21 06/19/21 22:59 06:59 14:59 Intake Total 840 300 720 Output Total 1050 Balance -210 300 720 Lab Results Last 24 Hours: Laboratory Results - last 24 hr 06/18/21 06/19/21 06/19/21 Range/Units 16:33 04:25 04:25 WBC 8.9 (4.5-11.0) K/uL RBC 4.38 (4.30-5.90) M/uL Hgb 13.7 (12.0-15.0) g/dL Hct 39.8 L (40.0-54.0) % MCV 91 (80-98) fL MCH 31 (27-31) pg MCHC 34 (32-36) % Plt Count 306 (150-400) K/uL D-Dimer, Quantitative 1339.91 H (0.0-500.0) ng/mL Sodium (140-148) mmol/L Potassium (3.6-5.2) mmol/L Chloride (100-108) mmol/L Carbon Dioxide (21-32) mmol/L Anion Gap (5.0-14.0) mmol/L BUN (7-18) mg/dL Creatinine (0.8-1.3) mg/dL Est Cr Clr Drug Dosing mL/min Estimated GFR (MDRD) (>60) Glucose (74-106) mg/dL POC Glucose 145 H (74-106) mg/dL Calcium (8.5-10.1) mg/dL Total Bilirubin (0.2-1.0) mg/dL AST (15-37) U/L ALT (12-78) U/L Alkaline Phosphatase (46-116) U/L C-Reactive Protein (0.0-0.3) mg/dL Total Protein (6.4-8.2) g/dL Albumin (3.4-5.0) g/dL Globulin (2.3-3.5) g/dL Albumin/Globulin Ratio (1.2-2.2) 06/19/21 06/19/21 06/19/21 Range/Units 04:25 07:31 11:43 WBC (4.5-11.0) K/uL RBC (4.30-5.90) M/uL Hgb (12.0-15.0) g/dL Hct (40.0-54.0) % MCV (80-98) fL MCH (27-31) pg MCHC (32-36) % Plt Count (150-400) K/uL D-Dimer, Quantitative (0.0-500.0) ng/mL Sodium 134 L (140-148) mmol/L Potassium 4.5 (3.6-5.2) mmol/L Chloride 100 (100-108) mmol/L Carbon Dioxide 23 (21-32) mmol/L Anion Gap 15.5 H (5.0-14.0) mmol/L BUN 34 H (7-18) mg/dL Creatinine 1.4 H (0.8-1.3) mg/dL Est Cr Clr Drug Dosing 62.87 mL/min Estimated GFR (MDRD) 51 L (>60) Glucose 182 H (74-106) mg/dL POC Glucose 164 H 184 H (74-106) mg/dL Calcium 8.4 L (8.5-10.1) mg/dL Total Bilirubin 0.7 D (0.2-1.0) mg/dL AST 37 (15-37) U/L ALT 68 (12-78) U/L Alkaline Phosphatase 97 (46-116) U/L C-Reactive Protein 11.68 H (0.0-0.3) mg/dL Total Protein 7.2 (6.4-8.2) g/dL Albumin 2.4 L (3.4-5.0) g/dL Globulin 4.8 H (2.3-3.5) g/dL Albumin/Globulin Ratio 0.5 L (1.2-2.2) Med Orders - Current: Current Medications Acetaminophen (Acetaminophen 325 Mg Tab) 650 mg PO Q4H PRN PRN Reason: Pain (Mild 1-3)/fever Last Admin: 06/18/21 10:58 Dose: 650 mg Documented by: Al Hydroxide/Mg Hydroxide (Aluminum Hydroxide/Magnesium Hydroxide/Simethicone Susp 30 Ml Cup) 30 ml PO Q4H PRN PRN Reason: Indigestion Albuterol (Albuterol 8 Gm Inhaler) 0 gm INH Q2H PRN PRN Reason: Shortness of Breath Last Admin: 06/18/21 11:33 Dose: 2 puff Documented by: Allopurinol (Allopurinol 100 Mg Tab) 100 mg PO DAILY [facility] Last Admin: 06/19/21 09:00 Dose: 100 mg Documented by: Amlodipine Besylate (Amlodipine 5 Mg Tab) 2.5 mg PO DAILY [facility] Last Admin: 06/17/21 13:50 Dose: Not Given Documented by: Aspirin (Aspirin 81 Mg Tab.Ec) 81 mg PO DAILY [facility] Last Admin: 06/19/21 08:59 Dose: 81 mg Documented by: Azelastine HCl (Azelastine Nasal Soln 30 Ml Elora Bottle) 0 ml NASBOTH BID [facility] Last Admin: 06/19/21 08:59 Dose: 2 spray Documented by: Benzonatate (Benzonatate 100 Mg Cap) 100 mg PO TID PRN PRN Reason: Cough Last Admin: 06/15/21 16:16 Dose: 100 mg Documented by: Calcium Carbonate/Glycine (Calcium Carbonate 500 Mg Tab.Chew) 1,000 mg PO Q2H PRN PRN Reason: Indigestion Last Admin: 06/15/21 16:16 Dose: 1,000 mg Documented by: Cholecalciferol (Cholecalciferol (Vitamin D3) 25 Mcg Tab) 25 mcg PO DAILY [facility] Last Admin: 06/19/21 09:00 Dose: 25 mcg Documented by: Clopidogrel Bisulfate (Clopidogrel 75 Mg Tab) 75 mg PO DAILY [facility] Last Admin: 06/19/21 09:00 Dose: 75 mg Documented by: Dexamethasone (Dexamethasone 4 Mg/Ml Sdv) 6 mg IVPUSH Q24H [facility] Stop: 06/22/21 14:01 Last Admin: 06/19/21 14:00 Dose: 6 mg Documented by: Ezetimibe (Ezetimibe 10 Mg Tab) 10 mg PO DAILY [facility] Last Admin: 06/19/21 09:00 Dose: 10 mg Documented by: Enoxaparin Sodium (Enoxaparin 40 Mg/0.4 Ml Syringe) 40 mg SUBCUT Q24H [facility] Last Admin: 06/19/21 14:01 Dose: 40 mg Documented by: Guaifenesin (Guaifenesin 600 Mg Tab.Er) 600 mg PO TID [facility] Last Admin: 06/19/21 14:03 Dose: 600 mg Documented by: Guaifenesin/Dextromethorphan (Guaifenesin/Dextromethorphan 100-10 Mg/5 Ml Soln 10 Ml Cup) 10 ml PO Q4H PRN PRN Reason: Cough Last Admin: 06/18/21 22:07 Dose: 10 ml Documented by: Insulin Glargine (Insulin Glargine,Human Rec. Analog 100 Units/Ml 3 Ml Pen) 74 units SUBCUT BEDTIME [facility] Last Admin: 06/18/21 22:03 Dose: 74 units Documented by: Insulin Glargine (Insulin Glargine,Human Rec. Analog 100 Units/Ml 3 Ml Pen) 46 units SUBCUT QAM [facility] Last Admin: 06/19/21 08:13 Dose: 46 units Documented by: Insulin Human Lispro (Insulin Lispro 100 Unit/Ml 3 Ml Kwikpen) 0 unit SUBCUT QIDACANDBED [facility]; Protocol Last Admin: 06/19/21 12:14 Dose: 3 units Documented by: Insulin Human Lispro (Insulin Lispro 100 Unit/Ml 3 Ml Kwikpen) 28 unit SUBCUT TIDMEALS [facility] Last Admin: 06/19/21 12:14 Dose: 28 units Documented by: Lorazepam (Lorazepam 2 Mg/Ml Sdv) 0.5 mg IVPUSH Q4H PRN PRN Reason: Nausea/Vomiting Magnesium Hydroxide (Magnesium Hydroxide 400 Mg/5 Ml Susp 30 Ml Cup) 30 ml PO Q12H PRN PRN Reason: Constipation Magnesium Oxide (Magnesium Oxide 400 Mg Tab) 400 mg PO BEDTIME [facility] Last Admin: 06/18/21 22:01 Dose: 400 mg Documented by: Melatonin (Melatonin 3 Mg Tab) 9 mg PO BEDTIME PRN PRN Reason: Sleep Metoprolol Succinate (Metoprolol Succinate 25 Mg Tab.Er) 25 mg PO DAILY [facility] Last Admin: 06/19/21 09:00 Dose: 25 mg Documented by: Mometasone Furoate (Mometasone Furoate Nasal Elora 17 Gm Canister) 0 gm NASBOTH BID [facility] Last Admin: 06/19/21 14:00 Dose: 2 spray Documented by: Mometasone Furoate/Formoterol Fumar (Formoterol/Mometasone 200-5 Mcg 8.8 Gm Inhaler) 2 puff IH BIDRT [facility] Last Admin: 06/19/21 07:34 Dose: 2 puff Documented by: Montelukast Sodium (Montelukast 10 Mg Tab) 10 mg PO DAILY [facility] Last Admin: 06/19/21 09:00 Dose: 10 mg Documented by: Ondansetron HCl (Ondansetron 4 Mg/2 Ml Sdv) 4 mg IV Q6H PRN PRN Reason: Nausea/Vomiting Ondansetron HCl (Ondansetron 4 Mg Tab.Dis) 4 mg PO Q6H PRN PRN Reason: Nausea able to take PO Pantoprazole Sodium (Pantoprazole 40 Mg Tab.Cr) 40 mg PO ACBREAKFAST [facility] Last Admin: 06/19/21 08:59 Dose: 40 mg Documented by: Kike 3mg 0 each SUBCUT We@0900 [facility] Last Admin: 06/14/21 10:40 Dose: 1 each Documented by: Ramipril (Ramipril 2.5 Mg Cap) 5 mg PO DAILY [facility] Last Admin: 06/17/21 13:49 Dose: Not Given Documented by: Ropinirole HCl (Ropinirole 0.5 Mg Tab) 0.5 mg PO BEDTIME [facility] Last Admin: 06/18/21 22:01 Dose: 0.5 mg Documented by: Senna/Docusate Sodium (Docusate Sodium/Sennosides 50-8.6 Mg Tab) 1 tab PO BID PRN PRN Reason: Constipation Discontinued Medications Acetaminophen (Acetaminophen 325 Mg Tab) 650 mg PO Q4H PRN PRN Reason: Fever Greater Than 101 Last Admin: 06/13/21 13:47 Dose: 650 mg Documented by: Azithromycin (Azithromycin 250 Mg Tab) 500 mg PO DAILY [facility] Stop: 06/18/21 09:01 Last Admin: 06/18/21 08:47 Dose: 500 mg Documented by: Dexamethasone (Dexamethasone 4 Mg/Ml Sdv) 6 mg IVPUSH DAILY [facility] Stop: 06/22/21 09:01 Last Admin: 06/13/21 13:48 Dose: 6 mg Documented by: Enoxaparin Sodium (Enoxaparin 40 Mg/0.4 Ml Syringe) 40 mg SUBCUT DAILY [facility] Last Admin: 06/13/21 13:57 Dose: 40 mg Documented by: Furosemide (Furosemide 40 Mg/4 Ml Vial) 40 mg IVPUSH NOW ONE Stop: 06/18/21 12:26 Last Admin: 06/18/21 13:24 Dose: 40 mg Documented by: Remdesivir 200 mg/ Sodium (Chloride) 250 mls @ 250 mls/hr IV ONETIME ONE Stop: 06/13/21 14:14 Last Admin: 06/13/21 13:51 Dose: 250 mls/hr Documented by: Remdesivir 100 mg/ Sodium (Chloride) 100 mls @ 100 mls/hr IV Q24H [facility] Stop: 06/17/21 14:59 Last Admin: 06/17/21 13:08 Dose: 100 mls/hr Documented by: Insulin Human Lispro (Insulin Lispro 100 Unit/Ml 3 Ml Kwikpen) 18 unit SUBCUT TIDMEALS [facility] Last Admin: 06/14/21 08:43 Dose: 18 units Documented by: Patient Own Medication (Patient's Own Medication 1 Each) 0 each SUBCUT .WEEKLY [facility] - Exam Quality Assessment: DVT Prophylaxis General: Alert, Oriented, Cooperative, Moderate Distress Lungs: Rales, Rhonchi. No: Crackles, Wheezing Cardiovascular: Regular Rate, Regular Rhythm, No Murmurs GI/Abdominal Exam: Soft, Non-Tender, No Organomegaly, No Distention Extremities: Non-Tender, No Pedal Edema - Patient Data Lab Results Last 24 hrs: Laboratory Results - last 24 hr 06/18/21 06/19/21 06/19/21 Range/Units 16:33 04:25 04:25 WBC 8.9 (4.5-11.0) K/uL RBC 4.38 (4.30-5.90) M/uL Hgb 13.7 (12.0-15.0) g/dL Hct 39.8 L (40.0-54.0) % MCV 91 (80-98) fL MCH 31 (27-31) pg MCHC 34 (32-36) % Plt Count 306 (150-400) K/uL D-Dimer, Quantitative 1339.91 H (0.0-500.0) ng/mL Sodium (140-148) mmol/L Potassium (3.6-5.2) mmol/L Chloride (100-108) mmol/L Carbon Dioxide (21-32) mmol/L Anion Gap (5.0-14.0) mmol/L BUN (7-18) mg/dL Creatinine (0.8-1.3) mg/dL Est Cr Clr Drug Dosing mL/min Estimated GFR (MDRD) (>60) Glucose (74-106) mg/dL POC Glucose 145 H (74-106) mg/dL Calcium (8.5-10.1) mg/dL Total Bilirubin (0.2-1.0) mg/dL AST (15-37) U/L ALT (12-78) U/L Alkaline Phosphatase (46-116) U/L C-Reactive Protein (0.0-0.3) mg/dL Total Protein (6.4-8.2) g/dL Albumin (3.4-5.0) g/dL Globulin (2.3-3.5) g/dL Albumin/Globulin Ratio (1.2-2.2) 06/19/21 06/19/21 06/19/21 Range/Units 04:25 07:31 11:43 WBC (4.5-11.0) K/uL RBC (4.30-5.90) M/uL Hgb (12.0-15.0) g/dL Hct (40.0-54.0) % MCV (80-98) fL MCH (27-31) pg MCHC (32-36) % Plt Count (150-400) K/uL D-Dimer, Quantitative (0.0-500.0) ng/mL Sodium 134 L (140-148) mmol/L Potassium 4.5 (3.6-5.2) mmol/L Chloride 100 (100-108) mmol/L Carbon Dioxide 23 (21-32) mmol/L Anion Gap 15.5 H (5.0-14.0) mmol/L BUN 34 H (7-18) mg/dL Creatinine 1.4 H (0.8-1.3) mg/dL Est Cr Clr Drug Dosing 62.87 mL/min Estimated GFR (MDRD) 51 L (>60) Glucose 182 H (74-106) mg/dL POC Glucose 164 H 184 H (74-106) mg/dL Calcium 8.4 L (8.5-10.1) mg/dL Total Bilirubin 0.7 D (0.2-1.0) mg/dL AST 37 (15-37) U/L ALT 68 (12-78) U/L Alkaline Phosphatase 97 (46-116) U/L C-Reactive Protein 11.68 H (0.0-0.3) mg/dL Total Protein 7.2 (6.4-8.2) g/dL Albumin 2.4 L (3.4-5.0) g/dL Globulin 4.8 H (2.3-3.5) g/dL Albumin/Globulin Ratio 0.5 L (1.2-2.2) Result Diagrams: 06/19/21 04:25 06/19/21 04:25 Sepsis Event Note - Evaluation Sepsis Screening Result: No Definite Risk - Focused Exam Vital Signs: Vital Signs Temp Pulse Pulse Resp BP BP Pulse Ox 06/19/21 13:50 92 L 06/19/21 11:58 98.7 F 75 26 H 124/77 92 L 06/19/21 09:00 64 110/66 06/19/21 08:43 97.7 F 64 22 H 110/66 94 L 06/19/21 07:23 94 L 06/19/21 03:00 97.4 F 65 18 115/53 L 92 L - Problem List Review Problem List Initiated/Reviewed/Updated: Yes - My Orders Last 24 Hours: My Active Orders 06/19/21 12:30 Mometasone Furoate [Nasonex Elora] See Dose Instructions NASBOTH BID 06/20/21 05:00 COMPREHENSIVE METABOLIC PN,CMP [CHEM] Timed - Plan Plan:: ASSESSMENT AND PLAN - COVID-19 pneumonia-complicated by acute respiratory failure with hypoxia. Symptom onset about 06/07. Oxygenation stable with supplemental oxygen requirements at 14 L. Tolerating treatments. Declined baricitinib. Symptomatically feeling better today. -Supplemental oxygen, wean as able -Dexamethasone 6 mg daily (day 6) -Remdesivir x5 days -Consider baricitinib if respiratory status declines further (patient declined 06/17) -Enoxaparin every 24 hours -Recheck CRP and D-dimer every 2 days -Isolation precautions Insulin-dependent diabetes mellitus-patient normally uses combination of twice daily basal insulin and mealtime insulin. Blood sugars well controlled. -Continue regular long-acting insulin -Usual dose of mealtime insulin -Medium dose sliding scale supplementation Coronary artery disease-recent stenting has improved his dyspnea some. No chest pain. -Continue medical management Maintenance issues - -DVT prophylaxis-enoxaparin -GI prophylaxis-not indicated -Nutrition-diabetic Disposition -I anticipate discharge home after the hospital stay Primary care physician -Dr Neeraj Dsouza
[2021-06-19] MEDS: rOPINIRole 0.5 MG Tab PO SCH (20:38)
[2021-06-19] MEDS: Magnesium Oxide 400 MG Tab PO SCH (20:38)
[2021-06-20] MEDS: Insulin Lispro 100 Unit/ML 3 ML KwikPen SUBCUT SCH ×7 (07:53→21:04)
[2021-06-20] MEDS: Insulin Glargine,Human Rec. Analog 100 Units/ML 3 ML Pen SUBCUT SCH ×3 (07:54→21:12)
[2021-06-20] MEDS: Formoterol/Mometasone 200-5 MCG 8.8 GM Inhaler IH SCH ×2 (07:57→21:09)
[2021-06-20] MEDS: Aspirin 81 MG Tab.EC PO SCH (08:44)
[2021-06-20] MEDS: Azelastine Nasal Soln 30 ML Spray Bottle NASBOTH SCH ×2 (08:44→21:09)
[2021-06-20] MEDS: Pantoprazole 40 MG Tab.CR PO SCH (08:44)
[2021-06-20] MEDS: guaiFENesin 600 MG Tab.ER PO SCH ×3 (08:45→21:09)
[2021-06-20] MEDS: Montelukast 10 MG Tab PO SCH (08:46)
[2021-06-20] MEDS: Metoprolol Succinate 25 MG Tab.ER PO SCH (08:46)
[2021-06-20] MEDS: Clopidogrel 75 MG Tab PO SCH (08:46)
[2021-06-20] MEDS: Mometasone Furoate Nasal Spray 17 GM Canister NASBOTH SCH ×2 (08:46→21:10)
[2021-06-20] MEDS: Cholecalciferol (Vitamin D3) 25 MCG Tab PO SCH (08:47)
[2021-06-20] MEDS: Ezetimibe 10 MG Tab PO SCH (08:47)
[2021-06-20] MEDS: Allopurinol 100 MG Tab PO SCH (08:47)
[2021-06-20] MEDS: Enoxaparin 40 MG/0.4 ML Syringe SUBCUT SCH (12:29)
--- NOTE | 2021-06-20 13:27 | PCM.PN ---
- General Info Date of Service: 06/20/21 Subjective Update: Mr. Ross has remained relatively stable since yesterday, continues to require 14 L of oxygen per minute via high flow nasal cannula. Overall strength and heather rtness of breath seem to be subjectively improved. Functional Status: Reports: Tolerating Diet, Urinating - Review of Systems General: Reports: Weakness, Fatigue. Denies: Fever, Chills Pulmonary: Reports: Shortness of Breath, Cough. Denies: Pleuritic Chest Pain, Sputum, Hemoptysis, Wheezing Cardiovascular: Reports: Dyspnea on Exertion. Denies: Chest Pain, Palpitations, Orthopnea, PND, Edema, Lightheadedness Gastrointestinal: Reports: No Symptoms Genitourinary: Reports: No Symptoms - Patient Data Vitals - Most Recent: Last Vital Signs Temp 97.8 F 06/20/21 11:04 Pulse 66 06/20/21 11:04 Resp 26 H 06/20/21 11:04 BP 121/71 06/20/21 11:04 Pulse Ox 95 06/20/21 13:08 Weight - Most Recent: 263 lb I&O - Last 24 Hours: Intake & Output 06/19/21 06/20/21 06/20/21 22:59 06:59 14:59 Intake Total 2400 1150 Output Total 1000 2300 Balance 1400 -1150 Lab Results Last 24 Hours: Laboratory Results - last 24 hr 06/19/21 06/20/21 06/20/21 Range/Units 16:42 04:20 07:35 Sodium 134 L (140-148) mmol/L Potassium 5.3 H (3.6-5.2) mmol/L Chloride 100 (100-108) mmol/L Carbon Dioxide 25 (21-32) mmol/L Anion Gap 14.3 H (5.0-14.0) mmol/L BUN 33 H (7-18) mg/dL Creatinine 1.5 H (0.8-1.3) mg/dL Est Cr Clr Drug Dosing 58.68 mL/min Estimated GFR (MDRD) 47 L (>60) Glucose 315 H (74-106) mg/dL POC Glucose 309 H 266 H (74-106) mg/dL Calcium 8.6 (8.5-10.1) mg/dL Total Bilirubin 0.5 (0.2-1.0) mg/dL AST 59 H (15-37) U/L ALT 129 H (12-78) U/L Alkaline Phosphatase 127 H (46-116) U/L Total Protein 7.1 (6.4-8.2) g/dL Albumin 2.3 L (3.4-5.0) g/dL Globulin 4.8 H (2.3-3.5) g/dL Albumin/Globulin Ratio 0.5 L (1.2-2.2) 06/20/21 Range/Units 11:47 Sodium (140-148) mmol/L Potassium (3.6-5.2) mmol/L Chloride (100-108) mmol/L Carbon Dioxide (21-32) mmol/L Anion Gap (5.0-14.0) mmol/L BUN (7-18) mg/dL Creatinine (0.8-1.3) mg/dL Est Cr Clr Drug Dosing mL/min Estimated GFR (MDRD) (>60) Glucose (74-106) mg/dL POC Glucose 287 H (74-106) mg/dL Calcium (8.5-10.1) mg/dL Total Bilirubin (0.2-1.0) mg/dL AST (15-37) U/L ALT (12-78) U/L Alkaline Phosphatase (46-116) U/L Total Protein (6.4-8.2) g/dL Albumin (3.4-5.0) g/dL Globulin (2.3-3.5) g/dL Albumin/Globulin Ratio (1.2-2.2) Med Orders - Current: Current Medications Acetaminophen (Acetaminophen 325 Mg Tab) 650 mg PO Q4H PRN PRN Reason: Pain (Mild 1-3)/fever Last Admin: 06/18/21 10:58 Dose: 650 mg Documented by: Al Hydroxide/Mg Hydroxide (Aluminum Hydroxide/Magnesium Hydroxide/Simethicone Susp 30 Ml Cup) 30 ml PO Q4H PRN PRN Reason: Indigestion Albuterol (Albuterol 8 Gm Inhaler) 0 gm INH Q2H PRN PRN Reason: Shortness of Breath Last Admin: 06/18/21 11:33 Dose: 2 puff Documented by: Albuterol/Ipratropium (Albuterol/Ipratropium 4 Gm Inhalation [place]) 0 gm INH QID IVANA Allopurinol (Allopurinol 100 Mg Tab) 100 mg PO DAILY [facility] Last Admin: 06/20/21 08:47 Dose: 100 mg Documented by: Amlodipine Besylate (Amlodipine 5 Mg Tab) 2.5 mg PO DAILY [facility] Last Admin: 06/17/21 13:50 Dose: Not Given Documented by: Aspirin (Aspirin 81 Mg Tab.Ec) 81 mg PO DAILY [facility] Last Admin: 06/20/21 08:44 Dose: 81 mg Documented by: Azelastine HCl (Azelastine Nasal Soln 30 Ml [place] Bottle) 0 ml NASBOTH BID [facility] Last Admin: 06/20/21 08:44 Dose: 2 spray Documented by: Benzonatate (Benzonatate 100 Mg Cap) 100 mg PO TID PRN PRN Reason: Cough Last Admin: 06/15/21 16:16 Dose: 100 mg Documented by: Calcium Carbonate/Glycine (Calcium Carbonate 500 Mg Tab.Chew) 1,000 mg PO Q2H PRN PRN Reason: Indigestion Last Admin: 06/15/21 16:16 Dose: 1,000 mg Documented by: Cholecalciferol (Cholecalciferol (Vitamin D3) 25 Mcg Tab) 25 mcg PO DAILY [facility] Last Admin: 06/20/21 08:47 Dose: 25 mcg Documented by: Clopidogrel Bisulfate (Clopidogrel 75 Mg Tab) 75 mg PO DAILY [facility] Last Admin: 06/20/21 08:46 Dose: 75 mg Documented by: Dexamethasone (Dexamethasone 4 Mg/Ml Sdv) 6 mg IVPUSH Q24H [facility] Stop: 06/22/21 14:01 Last Admin: 06/19/21 14:00 Dose: 6 mg Documented by: Ezetimibe (Ezetimibe 10 Mg Tab) 10 mg PO DAILY [facility] Last Admin: 06/20/21 08:47 Dose: 10 mg Documented by: Enoxaparin Sodium (Enoxaparin 40 Mg/0.4 Ml Syringe) 40 mg SUBCUT Q24H [facility] Last Admin: 06/20/21 12:29 Dose: 40 mg Documented by: Guaifenesin (Guaifenesin 600 Mg Tab.Er) 600 mg PO TID [facility] Last Admin: 06/20/21 08:45 Dose: 600 mg Documented by: Guaifenesin/Dextromethorphan (Guaifenesin/Dextromethorphan 100-10 Mg/5 Ml Soln 10 Ml Cup) 10 ml PO Q4H PRN PRN Reason: Cough Last Admin: 06/18/21 22:07 Dose: 10 ml Documented by: Insulin Glargine (Insulin Glargine,Human Rec. Analog 100 Units/Ml 3 Ml Pen) 74 units SUBCUT BEDTIME [facility] Last Admin: 06/19/21 20:34 Dose: 74 units Documented by: Insulin Glargine (Insulin Glargine,Human Rec. Analog 100 Units/Ml 3 Ml Pen) 46 units SUBCUT QAM [facility] Last Admin: 06/20/21 08:45 Dose: Not Given Documented by: Insulin Human Lispro (Insulin Lispro 100 Unit/Ml 3 Ml Kwikpen) 0 unit SUBCUT QIDACANDBED [facility]; Protocol Last Admin: 06/20/21 12:28 Dose: 6 units Documented by: Insulin Human Lispro (Insulin Lispro 100 Unit/Ml 3 Ml Kwikpen) 28 unit SUBCUT TIDMEALS [facility] Last Admin: 06/20/21 12:29 Dose: 28 units Documented by: Lorazepam (Lorazepam 2 Mg/Ml Sdv) 0.5 mg IVPUSH Q4H PRN PRN Reason: Nausea/Vomiting Magnesium Hydroxide (Magnesium Hydroxide 400 Mg/5 Ml Susp 30 Ml Cup) 30 ml PO Q12H PRN PRN Reason: Constipation Magnesium Oxide (Magnesium Oxide 400 Mg Tab) 400 mg PO BEDTIME [facility] Last Admin: 06/19/21 20:38 Dose: 400 mg Documented by: Melatonin (Melatonin 3 Mg Tab) 9 mg PO BEDTIME PRN PRN Reason: Sleep Metoprolol Succinate (Metoprolol Succinate 25 Mg Tab.Er) 25 mg PO DAILY [facility] Last Admin: 06/20/21 08:46 Dose: 25 mg Documented by: Mometasone Furoate (Mometasone Furoate Nasal [place] 17 Gm Canister) 0 gm NASBOTH BID [facility] Last Admin: 06/20/21 08:46 Dose: Not Given Documented by: Mometasone Furoate/Formoterol Fumar (Formoterol/Mometasone 200-5 Mcg 8.8 Gm Inhaler) 2 puff IH BIDRT [facility] Last Admin: 06/20/21 07:57 Dose: 2 puff Documented by: Montelukast Sodium (Montelukast 10 Mg Tab) 10 mg PO DAILY [facility] Last Admin: 06/20/21 08:46 Dose: 10 mg Documented by: Ondansetron HCl (Ondansetron 4 Mg/2 Ml Sdv) 4 mg IV Q6H PRN PRN Reason: Nausea/Vomiting Ondansetron HCl (Ondansetron 4 Mg Tab.Dis) 4 mg PO Q6H PRN PRN Reason: Nausea able to take PO Pantoprazole Sodium (Pantoprazole 40 Mg Tab.Cr) 40 mg PO ACBREAKFAST [facility] Last Admin: 06/20/21 08:44 Dose: 40 mg Documented by: Kike 3mg 0 each SUBCUT We@0900 [facility] Last Admin: 06/14/21 10:40 Dose: 1 each Documented by: Ramipril (Ramipril 2.5 Mg Cap) 5 mg PO DAILY [facility] Last Admin: 06/17/21 13:49 Dose: Not Given Documented by: Ropinirole HCl (Ropinirole 0.5 Mg Tab) 0.5 mg PO BEDTIME [facility] Last Admin: 06/19/21 20:38 Dose: 0.5 mg Documented by: Senna/Docusate Sodium (Docusate Sodium/Sennosides 50-8.6 Mg Tab) 1 tab PO BID PRN PRN Reason: Constipation Discontinued Medications Acetaminophen (Acetaminophen 325 Mg Tab) 650 mg PO Q4H PRN PRN Reason: Fever Greater Than 101 Last Admin: 06/13/21 13:47 Dose: 650 mg Documented by: Azithromycin (Azithromycin 250 Mg Tab) 500 mg PO DAILY [facility] Stop: 06/18/21 09:01 Last Admin: 06/18/21 08:47 Dose: 500 mg Documented by: Dexamethasone (Dexamethasone 4 Mg/Ml Sdv) 6 mg IVPUSH DAILY [facility] Stop: 06/22/21 09:01 Last Admin: 06/13/21 13:48 Dose: 6 mg Documented by: Enoxaparin Sodium (Enoxaparin 40 Mg/0.4 Ml Syringe) 40 mg SUBCUT DAILY [facility] Last Admin: 06/13/21 13:57 Dose: 40 mg Documented by: Furosemide (Furosemide 40 Mg/4 Ml Vial) 40 mg IVPUSH NOW ONE Stop: 06/18/21 12:26 Last Admin: 06/18/21 13:24 Dose: 40 mg Documented by: Remdesivir 200 mg/ Sodium (Chloride) 250 mls @ 250 mls/hr IV ONETIME ONE Stop: 06/13/21 14:14 Last Admin: 06/13/21 13:51 Dose: 250 mls/hr Documented by: Remdesivir 100 mg/ Sodium (Chloride) 100 mls @ 100 mls/hr IV Q24H [facility] Stop: 06/17/21 14:59 Last Admin: 06/17/21 13:08 Dose: 100 mls/hr Documented by: Insulin Human Lispro (Insulin Lispro 100 Unit/Ml 3 Ml Kwikpen) 18 unit SUBCUT TIDMEALS [facility] Last Admin: 06/14/21 08:43 Dose: 18 units Documented by: Patient Own Medication (Patient's Own Medication 1 Each) 0 each SUBCUT .WEEKLY [facility] - Exam Quality Assessment: Supplemental Oxygen, DVT Prophylaxis General: Alert, Oriented, Cooperative, Moderate Distress Lungs: Decreased Breath Sounds, Crackles, Rhonchi. No: Rales, Wheezing Cardiovascular: Regular Rate, Regular Rhythm, No Murmurs GI/Abdominal Exam: Soft, Non-Tender, No Organomegaly, No Distention Extremities: Non-Tender, No Pedal Edema - Patient Data Lab Results Last 24 hrs: Laboratory Results - last 24 hr 06/19/21 06/20/21 06/20/21 Range/Units 16:42 04:20 07:35 Sodium 134 L (140-148) mmol/L Potassium 5.3 H (3.6-5.2) mmol/L Chloride 100 (100-108) mmol/L Carbon Dioxide 25 (21-32) mmol/L Anion Gap 14.3 H (5.0-14.0) mmol/L BUN 33 H (7-18) mg/dL Creatinine 1.5 H (0.8-1.3) mg/dL Est Cr Clr Drug Dosing 58.68 mL/min Estimated GFR (MDRD) 47 L (>60) Glucose 315 H (74-106) mg/dL POC Glucose 309 H 266 H (74-106) mg/dL Calcium 8.6 (8.5-10.1) mg/dL Total Bilirubin 0.5 (0.2-1.0) mg/dL AST 59 H (15-37) U/L ALT 129 H (12-78) U/L Alkaline Phosphatase 127 H (46-116) U/L Total Protein 7.1 (6.4-8.2) g/dL Albumin 2.3 L (3.4-5.0) g/dL Globulin 4.8 H (2.3-3.5) g/dL Albumin/Globulin Ratio 0.5 L (1.2-2.2) 06/20/21 Range/Units 11:47 Sodium (140-148) mmol/L Potassium (3.6-5.2) mmol/L Chloride (100-108) mmol/L Carbon Dioxide (21-32) mmol/L Anion Gap (5.0-14.0) mmol/L BUN (7-18) mg/dL Creatinine (0.8-1.3) mg/dL Est Cr Clr Drug Dosing mL/min Estimated GFR (MDRD) (>60) Glucose (74-106) mg/dL POC Glucose 287 H (74-106) mg/dL Calcium (8.5-10.1) mg/dL Total Bilirubin (0.2-1.0) mg/dL AST (15-37) U/L ALT (12-78) U/L Alkaline Phosphatase (46-116) U/L Total Protein (6.4-8.2) g/dL Albumin (3.4-5.0) g/dL Globulin (2.3-3.5) g/dL Albumin/Globulin Ratio (1.2-2.2) Result Diagrams: 06/19/21 04:25 06/20/21 04:20 Sepsis Event Note - Evaluation Sepsis Screening Result: No Definite Risk - Focused Exam Vital Signs: Vital Signs Temp Pulse Pulse Resp BP BP Pulse Ox 06/20/21 13:08 95 06/20/21 11:04 97.8 F 66 26 H 121/71 93 L 06/20/21 08:46 73 126/66 06/20/21 07:23 91 L 06/20/21 07:00 96.6 F L 73 18 126/66 95 06/20/21 03:00 97.3 F 61 16 118/72 95 - Problem List Review Problem List Initiated/Reviewed/Updated: Yes - My Orders Last 24 Hours: My Active Orders 06/19/21 12:30 Mometasone Furoate [Nasonex [place]] See Dose Instructions NASBOTH BID 06/20/21 13:22 RT Aerosol Therapy [RC] ASDIRECTED RT Post Treatment Assessment [RC] Click to Edit RT Acapella [RESPCARE] Urgent 06/20/21 16:00 Albuterol/Ipratropium [Combivent Respimat] See Dose Instructions INH QID 06/20/21 17:00 POTASSIUM,K [CHEM] Stat 06/21/21 05:00 CBC WITH AUTO DIFF [HEME] Timed COMPREHENSIVE METABOLIC PN,CMP [CHEM] Timed 06/21/21 05:11 CRP [C-REACTIVE PROTEIN] [CHEM] AM D Dimer [D-DIMER QUANTITATIVE] [COAG] AM - Plan Plan:: ASSESSMENT AND PLAN COVID-19 pneumonia-complicated by acute respiratory failure with hypoxia. Symptom onset about 06/07. Oxygenation stable with supplemental oxygen requirements at 14 L. Tolerating treatments. Declined baricitinib. Symptomatically feeling better today. -Supplemental oxygen, wean as able -Dexamethasone 6 mg daily (day 7) -Remdesivir x5 days, completed -Consider baricitinib if respiratory status declines further (patient declined 06/17) -Enoxaparin every 24 hours -Recheck CRP and D-dimer every 2 days -Isolation precautions Insulin-dependent diabetes mellitus-patient normally uses combination of twice daily basal insulin and mealtime insulin. Refuses to consider any adjustment to his insulin regimen -Continue regular long-acting insulin -Usual dose of mealtime insulin -Medium dose sliding scale supplementation Coronary artery disease-recent stenting has improved his dyspnea some. No chest pain. -Continue medical management Maintenance issues - -DVT prophylaxis-enoxaparin -GI prophylaxis-not indicated -Nutrition-diabetic Disposition -I anticipate discharge home after the hospital stay Primary care physician -Dr Neeraj Dsouza
[2021-06-20] MEDS: Dexamethasone 4 MG/ML SDV IVPUSH SCH (14:17)
[2021-06-20] MEDS: Albuterol/Ipratropium 4 GM Inhalation Spray INH SCH ×2 (15:36→21:10)
[2021-06-20] MEDS: Magnesium Oxide 400 MG Tab PO SCH (21:09)
[2021-06-20] MEDS: rOPINIRole 0.5 MG Tab PO SCH (21:09)
[2021-06-20] MEDS: guaiFENesin/Dextromethorphan 100-10 MG/5 ML Soln 10 ML Cup PO PRN (21:12)
[2021-06-21] MEDS: Albuterol/Ipratropium 4 GM Inhalation Spray INH SCH ×4 (05:50→22:25)
[2021-06-21] MEDS: Formoterol/Mometasone 200-5 MCG 8.8 GM Inhaler IH SCH ×2 (07:04→20:35)
[2021-06-21] MEDS: Allopurinol 100 MG Tab PO SCH (08:00)
[2021-06-21] MEDS: Cholecalciferol (Vitamin D3) 25 MCG Tab PO SCH (08:00)
[2021-06-21] MEDS: Montelukast 10 MG Tab PO SCH (08:00)
[2021-06-21] MEDS: Pantoprazole 40 MG Tab.CR PO SCH (08:00)
[2021-06-21] MEDS: amLODIPine 5 MG Tab PO SCH (08:00)
[2021-06-21] MEDS: guaiFENesin 600 MG Tab.ER PO SCH ×3 (08:00→20:35)
[2021-06-21] MEDS: Ezetimibe 10 MG Tab PO SCH (08:01)
[2021-06-21] MEDS: Metoprolol Succinate 25 MG Tab.ER PO SCH (08:01)
[2021-06-21] MEDS: Clopidogrel 75 MG Tab PO SCH (08:02)
[2021-06-21] MEDS: Azelastine Nasal Soln 30 ML Spray Bottle NASBOTH SCH ×2 (08:03→20:35)
[2021-06-21] MEDS: Aspirin 81 MG Tab.EC PO SCH (08:03)
[2021-06-21] MEDS: Insulin Glargine,Human Rec. Analog 100 Units/ML 3 ML Pen SUBCUT SCH ×2 (08:04→20:37)
[2021-06-21] MEDS: Insulin Lispro 100 Unit/ML 3 ML KwikPen SUBCUT SCH ×7 (08:04→20:36)
[2021-06-21] MEDS: Mometasone Furoate Nasal Spray 17 GM Canister NASBOTH SCH ×2 (08:09→20:37)
[2021-06-21] MEDS: TRULICITY 3 MG SUBCUT SCH (11:39)
[2021-06-21] MEDS: Enoxaparin 40 MG/0.4 ML Syringe SUBCUT SCH (14:47)
[2021-06-21] MEDS: Dexamethasone 4 MG/ML SDV IVPUSH SCH (14:48)
--- NOTE | 2021-06-21 16:26 | PCM.PN ---
- General Info Date of Service: 06/21/21 Subjective Update: Mr. Ross has been stable since yesterday, subjectively he feels improved with less shortness of breath. Level of supplemental oxygen is unchanged over the st 24 hours. He feels some improvement in overall energy level and appetite. Functional Status: Reports: Urinating - Review of Systems General: Reports: Weakness, Fatigue. Denies: Fever, Chills Pulmonary: Reports: Shortness of Breath, Cough. Denies: Pleuritic Chest Pain, Sputum, Hemoptysis, Wheezing Cardiovascular: Reports: Dyspnea on Exertion. Denies: Chest Pain, Palpitations, Orthopnea, PND, Edema, Lightheadedness Gastrointestinal: Reports: No Symptoms Genitourinary: Reports: No Symptoms - Patient Data Vitals - Most Recent: Last Vital Signs Temp 99.3 F 06/21/21 14:28 Pulse 83 06/21/21 14:28 Resp 18 06/21/21 14:28 BP 118/61 06/21/21 14:28 Pulse Ox 92 L 06/21/21 14:28 Weight - Most Recent: 263 lb I&O - Last 24 Hours: Intake & Output 06/21/21 06/21/21 06/21/21 06:59 14:59 22:59 Intake Total 300 1600 Output Total 1850 1500 Balance -1550 1600 -1500 Lab Results Last 24 Hours: Laboratory Results - last 24 hr 06/20/21 06/20/21 06/21/21 Range/Units 16:53 16:56 05:30 WBC 10.3 (4.5-11.0) K/uL RBC 4.00 L (4.30-5.90) M/uL Hgb 12.8 (12.0-15.0) g/dL Hct 36.3 L (40.0-54.0) % MCV 91 (80-98) fL MCH 32 H (27-31) pg MCHC 35 (32-36) % Plt Count 330 (150-400) K/uL Neut % (Auto) 90.3 H (36-66) % Lymph % (Auto) 6.0 L (24-44) % O'Brien % (Auto) 3.1 (2-6) % Eos % (Auto) 0.5 L (2-4) % Baso % (Auto) 0.1 (0-1) % D-Dimer, Quantitative (0.0-500.0) ng/mL Sodium (140-148) mmol/L Potassium 4.8 (3.6-5.2) mmol/L Chloride (100-108) mmol/L Carbon Dioxide (21-32) mmol/L Anion Gap (5.0-14.0) mmol/L BUN (7-18) mg/dL Creatinine (0.8-1.3) mg/dL Est Cr Clr Drug Dosing mL/min Estimated GFR (MDRD) (>60) Glucose (74-106) mg/dL POC Glucose 333 H (74-106) mg/dL Calcium (8.5-10.1) mg/dL Total Bilirubin (0.2-1.0) mg/dL AST (15-37) U/L ALT (12-78) U/L Alkaline Phosphatase (46-116) U/L C-Reactive Protein (0.0-0.3) mg/dL Total Protein (6.4-8.2) g/dL Albumin (3.4-5.0) g/dL Globulin (2.3-3.5) g/dL Albumin/Globulin Ratio (1.2-2.2) 06/21/21 06/21/21 06/21/21 Range/Units 05:30 05:30 05:35 WBC (4.5-11.0) K/uL RBC (4.30-5.90) M/uL Hgb (12.0-15.0) g/dL Hct (40.0-54.0) % MCV (80-98) fL MCH (27-31) pg MCHC (32-36) % Plt Count (150-400) K/uL Neut % (Auto) (36-66) % Lymph % (Auto) (24-44) % O'Brien % (Auto) (2-6) % Eos % (Auto) (2-4) % Baso % (Auto) (0-1) % D-Dimer, Quantitative 1487.46 H (0.0-500.0) ng/mL Sodium 137 L (140-148) mmol/L Potassium 5.2 (3.6-5.2) mmol/L Chloride 102 (100-108) mmol/L Carbon Dioxide 23 (21-32) mmol/L Anion Gap 17.2 H (5.0-14.0) mmol/L BUN 35 H (7-18) mg/dL Creatinine 1.4 H (0.8-1.3) mg/dL Est Cr Clr Drug Dosing 62.87 mL/min Estimated GFR (MDRD) 51 L (>60) Glucose 274 H (74-106) mg/dL POC Glucose (74-106) mg/dL Calcium 8.3 L (8.5-10.1) mg/dL Total Bilirubin 0.4 (0.2-1.0) mg/dL AST 40 H (15-37) U/L ALT 133 H (12-78) U/L Alkaline Phosphatase 124 H (46-116) U/L C-Reactive Protein 3.30 H (0.0-0.3) mg/dL Total Protein 6.4 (6.4-8.2) g/dL Albumin 2.3 L (3.4-5.0) g/dL Globulin 4.1 H (2.3-3.5) g/dL Albumin/Globulin Ratio 0.6 L (1.2-2.2) 06/21/21 06/21/21 Range/Units 07:25 11:29 WBC (4.5-11.0) K/uL RBC (4.30-5.90) M/uL Hgb (12.0-15.0) g/dL Hct (40.0-54.0) % MCV (80-98) fL MCH (27-31) pg MCHC (32-36) % Plt Count (150-400) K/uL Neut % (Auto) (36-66) % Lymph % (Auto) (24-44) % O'Brien % (Auto) (2-6) % Eos % (Auto) (2-4) % Baso % (Auto) (0-1) % D-Dimer, Quantitative (0.0-500.0) ng/mL Sodium (140-148) mmol/L Potassium (3.6-5.2) mmol/L Chloride (100-108) mmol/L Carbon Dioxide (21-32) mmol/L Anion Gap (5.0-14.0) mmol/L BUN (7-18) mg/dL Creatinine (0.8-1.3) mg/dL Est Cr Clr Drug Dosing mL/min Estimated GFR (MDRD) (>60) Glucose (74-106) mg/dL POC Glucose 251 H 306 H (74-106) mg/dL Calcium (8.5-10.1) mg/dL Total Bilirubin (0.2-1.0) mg/dL AST (15-37) U/L ALT (12-78) U/L Alkaline Phosphatase (46-116) U/L C-Reactive Protein (0.0-0.3) mg/dL Total Protein (6.4-8.2) g/dL Albumin (3.4-5.0) g/dL Globulin (2.3-3.5) g/dL Albumin/Globulin Ratio (1.2-2.2) Med Orders - Current: Current Medications Acetaminophen (Acetaminophen 325 Mg Tab) 650 mg PO Q4H PRN PRN Reason: Pain (Mild 1-3)/fever Last Admin: 06/18/21 10:58 Dose: 650 mg Documented by: Al Hydroxide/Mg Hydroxide (Aluminum Hydroxide/Magnesium Hydroxide/Simethicone Susp 30 Ml Cup) 30 ml PO Q4H PRN PRN Reason: Indigestion Albuterol (Albuterol 8 Gm Inhaler) 0 gm INH Q2H PRN PRN Reason: Shortness of Breath Last Admin: 06/18/21 11:33 Dose: 2 puff Documented by: Albuterol/Ipratropium (Albuterol/Ipratropium 4 Gm Inhalation Magna) 0 gm INH QID [facility] Last Admin: 06/21/21 11:02 Dose: 2 puff Documented by: Allopurinol (Allopurinol 100 Mg Tab) 100 mg PO DAILY [facility] Last Admin: 06/21/21 08:00 Dose: 100 mg Documented by: Amlodipine Besylate (Amlodipine 5 Mg Tab) 2.5 mg PO DAILY [facility] Last Admin: 06/21/21 08:00 Dose: 2.5 mg Documented by: Aspirin (Aspirin 81 Mg Tab.Ec) 81 mg PO DAILY [facility] Last Admin: 06/21/21 08:03 Dose: 81 mg Documented by: Azelastine HCl (Azelastine Nasal Soln 30 Ml Magna Bottle) 0 ml NASBOTH BID [facility] Last Admin: 06/21/21 08:03 Dose: 2 spray Documented by: Benzonatate (Benzonatate 100 Mg Cap) 100 mg PO TID PRN PRN Reason: Cough Last Admin: 06/15/21 16:16 Dose: 100 mg Documented by: Calcium Carbonate/Glycine (Calcium Carbonate 500 Mg Tab.Chew) 1,000 mg PO Q2H PRN PRN Reason: Indigestion Last Admin: 06/15/21 16:16 Dose: 1,000 mg Documented by: Cholecalciferol (Cholecalciferol (Vitamin D3) 25 Mcg Tab) 25 mcg PO DAILY [facility] Last Admin: 06/21/21 08:00 Dose: 25 mcg Documented by: Clopidogrel Bisulfate (Clopidogrel 75 Mg Tab) 75 mg PO DAILY [facility] Last Admin: 06/21/21 08:02 Dose: 75 mg Documented by: Dexamethasone (Dexamethasone 4 Mg/Ml Sdv) 6 mg IVPUSH Q24H [facility] Stop: 06/22/21 14:01 Last Admin: 06/21/21 14:48 Dose: 6 mg Documented by: Ezetimibe (Ezetimibe 10 Mg Tab) 10 mg PO DAILY [facility] Last Admin: 06/21/21 08:01 Dose: 10 mg Documented by: Enoxaparin Sodium (Enoxaparin 40 Mg/0.4 Ml Syringe) 40 mg SUBCUT Q24H [facility] Last Admin: 06/21/21 14:47 Dose: 40 mg Documented by: Guaifenesin (Guaifenesin 600 Mg Tab.Er) 600 mg PO TID [facility] Last Admin: 06/21/21 14:47 Dose: 600 mg Documented by: Guaifenesin/Dextromethorphan (Guaifenesin/Dextromethorphan 100-10 Mg/5 Ml Soln 10 Ml Cup) 10 ml PO Q4H PRN PRN Reason: Cough Last Admin: 06/20/21 21:12 Dose: 10 ml Documented by: Insulin Glargine (Insulin Glargine,Human Rec. Analog 100 Units/Ml 3 Ml Pen) 74 units SUBCUT BEDTIME [facility] Last Admin: 06/20/21 21:12 Dose: 74 units Documented by: Insulin Glargine (Insulin Glargine,Human Rec. Analog 100 Units/Ml 3 Ml Pen) 46 units SUBCUT QAM [facility] Last Admin: 06/21/21 08:04 Dose: 46 units Documented by: Insulin Human Lispro (Insulin Lispro 100 Unit/Ml 3 Ml Kwikpen) 0 unit SUBCUT QIDACANDBED [facility]; Protocol Last Admin: 06/21/21 11:40 Dose: 7 units Documented by: Insulin Human Lispro (Insulin Lispro 100 Unit/Ml 3 Ml Kwikpen) 28 unit SUBCUT TIDMEALS [facility] Last Admin: 06/21/21 11:40 Dose: 28 units Documented by: Lorazepam (Lorazepam 2 Mg/Ml Sdv) 0.5 mg IVPUSH Q4H PRN PRN Reason: Nausea/Vomiting Magnesium Hydroxide (Magnesium Hydroxide 400 Mg/5 Ml Susp 30 Ml Cup) 30 ml PO Q12H PRN PRN Reason: Constipation Magnesium Oxide (Magnesium Oxide 400 Mg Tab) 400 mg PO BEDTIME [facility] Last Admin: 06/20/21 21:09 Dose: 400 mg Documented by: Melatonin (Melatonin 3 Mg Tab) 9 mg PO BEDTIME PRN PRN Reason: Sleep Last Admin: 06/20/21 23:09 Dose: 9 mg Documented by: Metoprolol Succinate (Metoprolol Succinate 25 Mg Tab.Er) 25 mg PO DAILY [facility] Last Admin: 06/21/21 08:01 Dose: 25 mg Documented by: Mometasone Furoate (Mometasone Furoate Nasal Magna 17 Gm Canister) 0 gm NASBOTH BID [facility] Last Admin: 06/21/21 08:09 Dose: 2 spray Documented by: Mometasone Furoate/Formoterol Fumar (Formoterol/Mometasone 200-5 Mcg 8.8 Gm Inhaler) 2 puff IH BIDRT [facility] Last Admin: 06/21/21 07:04 Dose: 2 puff Documented by: Montelukast Sodium (Montelukast 10 Mg Tab) 10 mg PO DAILY [facility] Last Admin: 06/21/21 08:00 Dose: 10 mg Documented by: Ondansetron HCl (Ondansetron 4 Mg/2 Ml Sdv) 4 mg IV Q6H PRN PRN Reason: Nausea/Vomiting Ondansetron HCl (Ondansetron 4 Mg Tab.Dis) 4 mg PO Q6H PRN PRN Reason: Nausea able to take PO Last Admin: 06/21/21 00:43 Dose: 4 mg Documented by: Pantoprazole Sodium (Pantoprazole 40 Mg Tab.Cr) 40 mg PO ACBREAKFAST [facility] Last Admin: 06/21/21 08:00 Dose: 40 mg Documented by: Kike 3mg 0 each SUBCUT We@0900 [facility] Last Admin: 06/21/21 11:39 Dose: 1 each Documented by: Ramipril (Ramipril 2.5 Mg Cap) 5 mg PO DAILY [facility] Last Admin: 06/21/21 08:01 Dose: 5 mg Documented by: Ropinirole HCl (Ropinirole 0.5 Mg Tab) 0.5 mg PO BEDTIME [facility] Last Admin: 06/20/21 21:09 Dose: 0.5 mg Documented by: Senna/Docusate Sodium (Docusate Sodium/Sennosides 50-8.6 Mg Tab) 1 tab PO BID PRN PRN Reason: Constipation Discontinued Medications Acetaminophen (Acetaminophen 325 Mg Tab) 650 mg PO Q4H PRN PRN Reason: Fever Greater Than 101 Last Admin: 06/13/21 13:47 Dose: 650 mg Documented by: Azithromycin (Azithromycin 250 Mg Tab) 500 mg PO DAILY [facility] Stop: 06/18/21 09:01 Last Admin: 06/18/21 08:47 Dose: 500 mg Documented by: Dexamethasone (Dexamethasone 4 Mg/Ml Sdv) 6 mg IVPUSH DAILY [facility] Stop: 06/22/21 09:01 Last Admin: 06/13/21 13:48 Dose: 6 mg Documented by: Enoxaparin Sodium (Enoxaparin 40 Mg/0.4 Ml Syringe) 40 mg SUBCUT DAILY [facility] Last Admin: 06/13/21 13:57 Dose: 40 mg Documented by: Furosemide (Furosemide 40 Mg/4 Ml Vial) 40 mg IVPUSH NOW ONE Stop: 06/18/21 12:26 Last Admin: 06/18/21 13:24 Dose: 40 mg Documented by: Remdesivir 200 mg/ Sodium (Chloride) 250 mls @ 250 mls/hr IV ONETIME ONE Stop: 06/13/21 14:14 Last Admin: 06/13/21 13:51 Dose: 250 mls/hr Documented by: Remdesivir 100 mg/ Sodium (Chloride) 100 mls @ 100 mls/hr IV Q24H [facility] Stop: 06/17/21 14:59 Last Admin: 06/17/21 13:08 Dose: 100 mls/hr Documented by: Insulin Human Lispro (Insulin Lispro 100 Unit/Ml 3 Ml Kwikpen) 18 unit SUBCUT TIDMEALS [facility] Last Admin: 06/14/21 08:43 Dose: 18 units Documented by: Patient Own Medication (Patient's Own Medication 1 Each) 0 each SUBCUT .WEEKLY [facility] - Exam Quality Assessment: Supplemental Oxygen, DVT Prophylaxis General: Alert, Oriented, Cooperative, Moderate Distress Lungs: Normal Respiratory Effort, Crackles. No: Rales, Rhonchi, Wheezing Cardiovascular: Regular Rate, Regular Rhythm, No Murmurs GI/Abdominal Exam: Soft, Non-Tender, No Organomegaly, No Distention Extremities: Non-Tender, No Pedal Edema - Patient Data Lab Results Last 24 hrs: Laboratory Results - last 24 hr 06/20/21 06/20/21 06/21/21 Range/Units 16:53 16:56 05:30 WBC 10.3 (4.5-11.0) K/uL RBC 4.00 L (4.30-5.90) M/uL Hgb 12.8 (12.0-15.0) g/dL Hct 36.3 L (40.0-54.0) % MCV 91 (80-98) fL MCH 32 H (27-31) pg MCHC 35 (32-36) % Plt Count 330 (150-400) K/uL Neut % (Auto) 90.3 H (36-66) % Lymph % (Auto) 6.0 L (24-44) % O'Brien % (Auto) 3.1 (2-6) % Eos % (Auto) 0.5 L (2-4) % Baso % (Auto) 0.1 (0-1) % D-Dimer, Quantitative (0.0-500.0) ng/mL Sodium (140-148) mmol/L Potassium 4.8 (3.6-5.2) mmol/L Chloride (100-108) mmol/L Carbon Dioxide (21-32) mmol/L Anion Gap (5.0-14.0) mmol/L BUN (7-18) mg/dL Creatinine (0.8-1.3) mg/dL Est Cr Clr Drug Dosing mL/min Estimated GFR (MDRD) (>60) Glucose (74-106) mg/dL POC Glucose 333 H (74-106) mg/dL Calcium (8.5-10.1) mg/dL Total Bilirubin (0.2-1.0) mg/dL AST (15-37) U/L ALT (12-78) U/L Alkaline Phosphatase (46-116) U/L C-Reactive Protein (0.0-0.3) mg/dL Total Protein (6.4-8.2) g/dL Albumin (3.4-5.0) g/dL Globulin (2.3-3.5) g/dL Albumin/Globulin Ratio (1.2-2.2) 06/21/21 06/21/21 06/21/21 Range/Units 05:30 05:30 05:35 WBC (4.5-11.0) K/uL RBC (4.30-5.90) M/uL Hgb (12.0-15.0) g/dL Hct (40.0-54.0) % MCV (80-98) fL MCH (27-31) pg MCHC (32-36) % Plt Count (150-400) K/uL Neut % (Auto) (36-66) % Lymph % (Auto) (24-44) % O'Brien % (Auto) (2-6) % Eos % (Auto) (2-4) % Baso % (Auto) (0-1) % D-Dimer, Quantitative 1487.46 H (0.0-500.0) ng/mL Sodium 137 L (140-148) mmol/L Potassium 5.2 (3.6-5.2) mmol/L Chloride 102 (100-108) mmol/L Carbon Dioxide 23 (21-32) mmol/L Anion Gap 17.2 H (5.0-14.0) mmol/L BUN 35 H (7-18) mg/dL Creatinine 1.4 H (0.8-1.3) mg/dL Est Cr Clr Drug Dosing 62.87 mL/min Estimated GFR (MDRD) 51 L (>60) Glucose 274 H (74-106) mg/dL POC Glucose (74-106) mg/dL Calcium 8.3 L (8.5-10.1) mg/dL Total Bilirubin 0.4 (0.2-1.0) mg/dL AST 40 H (15-37) U/L ALT 133 H (12-78) U/L Alkaline Phosphatase 124 H (46-116) U/L C-Reactive Protein 3.30 H (0.0-0.3) mg/dL Total Protein 6.4 (6.4-8.2) g/dL Albumin 2.3 L (3.4-5.0) g/dL Globulin 4.1 H (2.3-3.5) g/dL Albumin/Globulin Ratio 0.6 L (1.2-2.2) 06/21/21 06/21/21 Range/Units 07:25 11:29 WBC (4.5-11.0) K/uL RBC (4.30-5.90) M/uL Hgb (12.0-15.0) g/dL Hct (40.0-54.0) % MCV (80-98) fL MCH (27-31) pg MCHC (32-36) % Plt Count (150-400) K/uL Neut % (Auto) (36-66) % Lymph % (Auto) (24-44) % O'Brien % (Auto) (2-6) % Eos % (Auto) (2-4) % Baso % (Auto) (0-1) % D-Dimer, Quantitative (0.0-500.0) ng/mL Sodium (140-148) mmol/L Potassium (3.6-5.2) mmol/L Chloride (100-108) mmol/L Carbon Dioxide (21-32) mmol/L Anion Gap (5.0-14.0) mmol/L BUN (7-18) mg/dL Creatinine (0.8-1.3) mg/dL Est Cr Clr Drug Dosing mL/min Estimated GFR (MDRD) (>60) Glucose (74-106) mg/dL POC Glucose 251 H 306 H (74-106) mg/dL Calcium (8.5-10.1) mg/dL Total Bilirubin (0.2-1.0) mg/dL AST (15-37) U/L ALT (12-78) U/L Alkaline Phosphatase (46-116) U/L C-Reactive Protein (0.0-0.3) mg/dL Total Protein (6.4-8.2) g/dL Albumin (3.4-5.0) g/dL Globulin (2.3-3.5) g/dL Albumin/Globulin Ratio (1.2-2.2) Result Diagrams: 06/21/21 05:30 06/21/21 05:30 Sepsis Event Note - Evaluation Sepsis Screening Result: No Definite Risk - Focused Exam Vital Signs: Vital Signs Temp Pulse Pulse Resp BP BP Pulse Ox 06/21/21 14:28 99.3 F 83 18 118/61 92 L 06/21/21 13:07 97 06/21/21 11:05 97.9 F 74 20 125/63 92 L 06/21/21 08:01 80 124/67 06/21/21 08:00 97.2 F 72 20 124/67 124/67 95 06/21/21 07:14 93 L - Problem List Review Problem List Initiated/Reviewed/Updated: Yes - My Orders Last 24 Hours: My Active Orders 06/20/21 16:00 Albuterol/Ipratropium [Combivent Respimat] See Dose Instructions INH QID - Plan Plan:: ASSESSMENT AND PLAN COVID-19 pneumonia-complicated by acute respiratory failure with hypoxia. Symptom onset about 06/07. Oxygenation stable with supplemental oxygen requirements at 14 L. Tolerating treatments. Symptomatically feeling better today. -Supplemental oxygen, wean as able -Dexamethasone 6 mg daily (day 8) -Remdesivir x5 days, completed -Consider baricitinib if respiratory status declines further (patient declined 06/17) -Enoxaparin every 24 hours -Recheck CRP and D-dimer every 2 days -Isolation precautions Insulin-dependent diabetes mellitus-patient normally uses combination of twice daily basal insulin and mealtime insulin. Refuses to consider any adjustment to his insulin regimen -Continue regular long-acting insulin -Usual dose of mealtime insulin -Medium dose sliding scale supplementation Coronary artery disease-recent stenting has improved his dyspnea some. No chest pain. -Continue medical management Maintenance issues - -DVT prophylaxis-enoxaparin -GI prophylaxis-not indicated -Nutrition-diabetic Disposition -I anticipate discharge home after the hospital stay Primary care physician -Dr Neeraj Dsouza
[2021-06-21] MEDS: Magnesium Oxide 400 MG Tab PO SCH (20:35)
[2021-06-21] MEDS: rOPINIRole 0.5 MG Tab PO SCH (20:44)
[2021-06-21] MEDS: guaiFENesin/Dextromethorphan 100-10 MG/5 ML Soln 10 ML Cup PO PRN (20:44)
[2021-06-22] MEDS: Albuterol/Ipratropium 4 GM Inhalation Spray INH SCH ×4 (06:18→21:43)
[2021-06-22] MEDS: Formoterol/Mometasone 200-5 MCG 8.8 GM Inhaler IH SCH ×2 (07:07→20:06)
[2021-06-22] MEDS: Insulin Lispro 100 Unit/ML 3 ML KwikPen SUBCUT SCH ×7 (08:31→20:04)
[2021-06-22] MEDS: guaiFENesin 600 MG Tab.ER PO SCH ×3 (08:32→20:07)
[2021-06-22] MEDS: Aspirin 81 MG Tab.EC PO SCH (08:32)
[2021-06-22] MEDS: Clopidogrel 75 MG Tab PO SCH (08:32)
[2021-06-22] MEDS: Montelukast 10 MG Tab PO SCH (08:33)
[2021-06-22] MEDS: Allopurinol 100 MG Tab PO SCH (08:33)
[2021-06-22] MEDS: amLODIPine 5 MG Tab PO SCH (08:33)
[2021-06-22] MEDS: Ezetimibe 10 MG Tab PO SCH (08:34)
[2021-06-22] MEDS: Pantoprazole 40 MG Tab.CR PO SCH (08:34)
[2021-06-22] MEDS: Metoprolol Succinate 25 MG Tab.ER PO SCH (08:34)
[2021-06-22] MEDS: Cholecalciferol (Vitamin D3) 25 MCG Tab PO SCH (08:35)
[2021-06-22] MEDS: Mometasone Furoate Nasal Spray 17 GM Canister NASBOTH SCH ×2 (08:35→20:05)
[2021-06-22] MEDS: Insulin Glargine,Human Rec. Analog 100 Units/ML 3 ML Pen SUBCUT SCH ×2 (08:36→20:07)
[2021-06-22] MEDS: Azelastine Nasal Soln 30 ML Spray Bottle NASBOTH SCH ×2 (08:36→20:05)
[2021-06-22] MEDS: Enoxaparin 40 MG/0.4 ML Syringe SUBCUT SCH (14:39)
[2021-06-22] MEDS: Dexamethasone 4 MG/ML SDV IVPUSH SCH (14:39)
--- NOTE | 2021-06-22 15:07 | PCM.PN ---
- General Info Date of Service: 06/22/21 Subjective Update: Mr. Ross has experienced improvement in symptoms and shortness of breath over the last 24 hours. Oxygen use is down slightly and he is now on 12 L of oxygen per minute via an nasal cannula. Appetite and overall energy level seem to be improving. Functional Status: Reports: Tolerating Diet, Urinating - Review of Systems General: Reports: Weakness, Fatigue. Denies: Fever, Chills Pulmonary: Reports: Shortness of Breath, Cough. Denies: Pleuritic Chest Pain, Sputum, Hemoptysis, Wheezing Cardiovascular: Reports: Dyspnea on Exertion. Denies: Chest Pain, Palpitations, Orthopnea, PND, Edema, Lightheadedness Gastrointestinal: Reports: No Symptoms Genitourinary: Reports: No Symptoms - Patient Data Vitals - Most Recent: Last Vital Signs Temp 96.3 F L 06/22/21 12:00 Pulse 64 06/22/21 12:00 Resp 18 06/22/21 12:00 BP 118/68 06/22/21 08:34 Pulse Ox 94 L 06/22/21 13:12 Weight - Most Recent: 263 lb I&O - Last 24 Hours: Intake & Output 06/22/21 06/22/21 06/22/21 06:59 14:59 22:59 Intake Total 600 Output Total 2100 1000 Balance -2100 -400 Lab Results Last 24 Hours: Laboratory Results - last 24 hr 06/21/21 06/22/21 06/22/21 Range/Units 16:31 05:45 07:43 Sodium 137 L (140-148) mmol/L Potassium 5.0 (3.6-5.2) mmol/L Chloride 102 (100-108) mmol/L Carbon Dioxide 24 (21-32) mmol/L Anion Gap 16.0 H (5.0-14.0) mmol/L BUN 31 H (7-18) mg/dL Creatinine 1.3 (0.8-1.3) mg/dL Est Cr Clr Drug Dosing 67.71 mL/min Estimated GFR (MDRD) 55 L (>60) Glucose 271 H (74-106) mg/dL POC Glucose 355 H 238 H (74-106) mg/dL Calcium 8.7 (8.5-10.1) mg/dL Total Bilirubin 0.4 (0.2-1.0) mg/dL AST 30 (15-37) U/L ALT 106 H (12-78) U/L Alkaline Phosphatase 114 (46-116) U/L Total Protein 7.0 (6.4-8.2) g/dL Albumin 2.2 L (3.4-5.0) g/dL Globulin 4.8 H (2.3-3.5) g/dL Albumin/Globulin Ratio 0.5 L (1.2-2.2) 06/22/21 Range/Units 11:34 Sodium (140-148) mmol/L Potassium (3.6-5.2) mmol/L Chloride (100-108) mmol/L Carbon Dioxide (21-32) mmol/L Anion Gap (5.0-14.0) mmol/L BUN (7-18) mg/dL Creatinine (0.8-1.3) mg/dL Est Cr Clr Drug Dosing mL/min Estimated GFR (MDRD) (>60) Glucose (74-106) mg/dL POC Glucose 298 H (74-106) mg/dL Calcium (8.5-10.1) mg/dL Total Bilirubin (0.2-1.0) mg/dL AST (15-37) U/L ALT (12-78) U/L Alkaline Phosphatase (46-116) U/L Total Protein (6.4-8.2) g/dL Albumin (3.4-5.0) g/dL Globulin (2.3-3.5) g/dL Albumin/Globulin Ratio (1.2-2.2) Med Orders - Current: Current Medications Acetaminophen (Acetaminophen 325 Mg Tab) 650 mg PO Q4H PRN PRN Reason: Pain (Mild 1-3)/fever Last Admin: 06/18/21 10:58 Dose: 650 mg Documented by: Al Hydroxide/Mg Hydroxide (Aluminum Hydroxide/Magnesium Hydroxide/Simethicone Susp 30 Ml Cup) 30 ml PO Q4H PRN PRN Reason: Indigestion Albuterol (Albuterol 8 Gm Inhaler) 0 gm INH Q2H PRN PRN Reason: Shortness of Breath Last Admin: 06/18/21 11:33 Dose: 2 puff Documented by: Albuterol/Ipratropium (Albuterol/Ipratropium 4 Gm Inhalation [place]) 0 gm INH QID IVANA Last Admin: 06/22/21 11:43 Dose: 2 puff Documented by: Allopurinol (Allopurinol 100 Mg Tab) 100 mg PO DAILY [facility] Last Admin: 06/22/21 08:33 Dose: 100 mg Documented by: Amlodipine Besylate (Amlodipine 5 Mg Tab) 2.5 mg PO DAILY [facility] Last Admin: 06/22/21 08:33 Dose: 2.5 mg Documented by: Aspirin (Aspirin 81 Mg Tab.Ec) 81 mg PO DAILY [facility] Last Admin: 06/22/21 08:32 Dose: 81 mg Documented by: Azelastine HCl (Azelastine Nasal Soln 30 Ml [place] Bottle) 0 ml NASBOTH BID [facility] Last Admin: 06/22/21 08:36 Dose: 2 spray Documented by: Benzonatate (Benzonatate 100 Mg Cap) 100 mg PO TID PRN PRN Reason: Cough Last Admin: 06/15/21 16:16 Dose: 100 mg Documented by: Calcium Carbonate/Glycine (Calcium Carbonate 500 Mg Tab.Chew) 1,000 mg PO Q2H PRN PRN Reason: Indigestion Last Admin: 06/15/21 16:16 Dose: 1,000 mg Documented by: Cholecalciferol (Cholecalciferol (Vitamin D3) 25 Mcg Tab) 25 mcg PO DAILY [facility] Last Admin: 06/22/21 08:35 Dose: 25 mcg Documented by: Clopidogrel Bisulfate (Clopidogrel 75 Mg Tab) 75 mg PO DAILY [facility] Last Admin: 06/22/21 08:32 Dose: 75 mg Documented by: Ezetimibe (Ezetimibe 10 Mg Tab) 10 mg PO DAILY [facility] Last Admin: 06/22/21 08:34 Dose: 10 mg Documented by: Enoxaparin Sodium (Enoxaparin 40 Mg/0.4 Ml Syringe) 40 mg SUBCUT Q24H [facility] Last Admin: 06/22/21 14:39 Dose: 40 mg Documented by: Guaifenesin (Guaifenesin 600 Mg Tab.Er) 600 mg PO TID [facility] Last Admin: 06/22/21 14:39 Dose: 600 mg Documented by: Guaifenesin/Dextromethorphan (Guaifenesin/Dextromethorphan 100-10 Mg/5 Ml Soln 10 Ml Cup) 10 ml PO Q4H PRN PRN Reason: Cough Last Admin: 06/21/21 20:44 Dose: 10 ml Documented by: Insulin Glargine (Insulin Glargine,Human Rec. Analog 100 Units/Ml 3 Ml Pen) 74 units SUBCUT BEDTIME [facility] Last Admin: 06/21/21 20:37 Dose: 74 units Documented by: Insulin Glargine (Insulin Glargine,Human Rec. Analog 100 Units/Ml 3 Ml Pen) 46 units SUBCUT QAM [facility] Last Admin: 06/22/21 08:36 Dose: 46 units Documented by: Insulin Human Lispro (Insulin Lispro 100 Unit/Ml 3 Ml Kwikpen) 0 unit SUBCUT QIDACANDBED [facility]; Protocol Last Admin: 06/22/21 11:44 Dose: 7 units Documented by: Insulin Human Lispro (Insulin Lispro 100 Unit/Ml 3 Ml Kwikpen) 28 unit SUBCUT TIDMEALS [facility] Last Admin: 06/22/21 11:44 Dose: 7 units Documented by: Lorazepam (Lorazepam 2 Mg/Ml Sdv) 0.5 mg IVPUSH Q4H PRN PRN Reason: Nausea/Vomiting Magnesium Hydroxide (Magnesium Hydroxide 400 Mg/5 Ml Susp 30 Ml Cup) 30 ml PO Q12H PRN PRN Reason: Constipation Magnesium Oxide (Magnesium Oxide 400 Mg Tab) 400 mg PO BEDTIME [facility] Last Admin: 06/21/21 20:35 Dose: 400 mg Documented by: Melatonin (Melatonin 3 Mg Tab) 9 mg PO BEDTIME PRN PRN Reason: Sleep Last Admin: 06/20/21 23:09 Dose: 9 mg Documented by: Metoprolol Succinate (Metoprolol Succinate 25 Mg Tab.Er) 25 mg PO DAILY [facility] Last Admin: 06/22/21 08:34 Dose: 25 mg Documented by: Mometasone Furoate (Mometasone Furoate Nasal [place] 17 Gm Canister) 0 gm NASBOTH BID [facility] Last Admin: 06/22/21 08:35 Dose: 2 spray Documented by: Mometasone Furoate/Formoterol Fumar (Formoterol/Mometasone 200-5 Mcg 8.8 Gm Inhaler) 2 puff IH BIDRT [facility] Last Admin: 06/22/21 07:07 Dose: 2 puff Documented by: Montelukast Sodium (Montelukast 10 Mg Tab) 10 mg PO DAILY [facility] Last Admin: 06/22/21 08:33 Dose: 10 mg Documented by: Ondansetron HCl (Ondansetron 4 Mg/2 Ml Sdv) 4 mg IV Q6H PRN PRN Reason: Nausea/Vomiting Ondansetron HCl (Ondansetron 4 Mg Tab.Dis) 4 mg PO Q6H PRN PRN Reason: Nausea able to take PO Last Admin: 06/21/21 00:43 Dose: 4 mg Documented by: Pantoprazole Sodium (Pantoprazole 40 Mg Tab.Cr) 40 mg PO ACBREAKFAST [facility] Last Admin: 06/22/21 08:34 Dose: 40 mg Documented by: Kike 3mg 0 each SUBCUT We@0900 [facility] Last Admin: 06/21/21 11:39 Dose: 1 each Documented by: Ramipril (Ramipril 2.5 Mg Cap) 5 mg PO DAILY [facility] Last Admin: 06/22/21 08:33 Dose: 5 mg Documented by: Ropinirole HCl (Ropinirole 0.5 Mg Tab) 0.5 mg PO BEDTIME [facility] Last Admin: 06/21/21 20:44 Dose: 0.5 mg Documented by: Senna/Docusate Sodium (Docusate Sodium/Sennosides 50-8.6 Mg Tab) 1 tab PO BID PRN PRN Reason: Constipation Discontinued Medications Acetaminophen (Acetaminophen 325 Mg Tab) 650 mg PO Q4H PRN PRN Reason: Fever Greater Than 101 Last Admin: 06/13/21 13:47 Dose: 650 mg Documented by: Azithromycin (Azithromycin 250 Mg Tab) 500 mg PO DAILY [facility] Stop: 06/18/21 09:01 Last Admin: 06/18/21 08:47 Dose: 500 mg Documented by: Dexamethasone (Dexamethasone 4 Mg/Ml Sdv) 6 mg IVPUSH DAILY [facility] Stop: 06/22/21 09:01 Last Admin: 06/13/21 13:48 Dose: 6 mg Documented by: Dexamethasone (Dexamethasone 4 Mg/Ml Sdv) 6 mg IVPUSH Q24H [facility] Stop: 06/22/21 14:01 Last Admin: 06/22/21 14:39 Dose: 6 mg Documented by: Enoxaparin Sodium (Enoxaparin 40 Mg/0.4 Ml Syringe) 40 mg SUBCUT DAILY [facility] Last Admin: 06/13/21 13:57 Dose: 40 mg Documented by: Furosemide (Furosemide 40 Mg/4 Ml Vial) 40 mg IVPUSH NOW ONE Stop: 06/18/21 12:26 Last Admin: 06/18/21 13:24 Dose: 40 mg Documented by: Remdesivir 200 mg/ Sodium (Chloride) 250 mls @ 250 mls/hr IV ONETIME ONE Stop: 06/13/21 14:14 Last Admin: 06/13/21 13:51 Dose: 250 mls/hr Documented by: Remdesivir 100 mg/ Sodium (Chloride) 100 mls @ 100 mls/hr IV Q24H IVANA Stop: 06/17/21 14:59 Last Admin: 06/17/21 13:08 Dose: 100 mls/hr Documented by: Insulin Human Lispro (Insulin Lispro 100 Unit/Ml 3 Ml Kwikpen) 18 unit SUBCUT TIDMEALS [facility] Last Admin: 06/14/21 08:43 Dose: 18 units Documented by: Patient Own Medication (Patient's Own Medication 1 Each) 0 each SUBCUT .WEEKLY IVANA - Exam Quality Assessment: Supplemental Oxygen, DVT Prophylaxis General: Alert, Oriented, Cooperative, Moderate Distress Lungs: Crackles. No: Rales, Rhonchi, Wheezing Cardiovascular: Regular Rate, Regular Rhythm, No Murmurs GI/Abdominal Exam: Soft, Non-Tender, No Organomegaly, No Distention Extremities: Non-Tender, No Pedal Edema - Patient Data Lab Results Last 24 hrs: Laboratory Results - last 24 hr 06/21/21 06/22/21 06/22/21 Range/Units 16:31 05:45 07:43 Sodium 137 L (140-148) mmol/L Potassium 5.0 (3.6-5.2) mmol/L Chloride 102 (100-108) mmol/L Carbon Dioxide 24 (21-32) mmol/L Anion Gap 16.0 H (5.0-14.0) mmol/L BUN 31 H (7-18) mg/dL Creatinine 1.3 (0.8-1.3) mg/dL Est Cr Clr Drug Dosing 67.71 mL/min Estimated GFR (MDRD) 55 L (>60) Glucose 271 H (74-106) mg/dL POC Glucose 355 H 238 H (74-106) mg/dL Calcium 8.7 (8.5-10.1) mg/dL Total Bilirubin 0.4 (0.2-1.0) mg/dL AST 30 (15-37) U/L ALT 106 H (12-78) U/L Alkaline Phosphatase 114 (46-116) U/L Total Protein 7.0 (6.4-8.2) g/dL Albumin 2.2 L (3.4-5.0) g/dL Globulin 4.8 H (2.3-3.5) g/dL Albumin/Globulin Ratio 0.5 L (1.2-2.2) 06/22/21 Range/Units 11:34 Sodium (140-148) mmol/L Potassium (3.6-5.2) mmol/L Chloride (100-108) mmol/L Carbon Dioxide (21-32) mmol/L Anion Gap (5.0-14.0) mmol/L BUN (7-18) mg/dL Creatinine (0.8-1.3) mg/dL Est Cr Clr Drug Dosing mL/min Estimated GFR (MDRD) (>60) Glucose (74-106) mg/dL POC Glucose 298 H (74-106) mg/dL Calcium (8.5-10.1) mg/dL Total Bilirubin (0.2-1.0) mg/dL AST (15-37) U/L ALT (12-78) U/L Alkaline Phosphatase (46-116) U/L Total Protein (6.4-8.2) g/dL Albumin (3.4-5.0) g/dL Globulin (2.3-3.5) g/dL Albumin/Globulin Ratio (1.2-2.2) Result Diagrams: 06/21/21 05:30 06/22/21 05:45 Sepsis Event Note - Evaluation Sepsis Screening Result: No Definite Risk - Focused Exam Vital Signs: Vital Signs Temp Pulse Pulse Resp BP BP Pulse Ox 06/22/21 13:12 94 L 06/22/21 12:00 96.3 F L 64 18 95 06/22/21 08:34 80 118/68 06/22/21 08:33 118/68 06/22/21 07:43 95.0 F L 63 18 104/62 92 L 06/22/21 07:30 94 L 06/22/21 04:00 96.7 F L 60 18 119/66 95 - Problem List Review Problem List Initiated/Reviewed/Updated: Yes - My Orders Last 24 Hours: My Active Orders 06/23/21 05:00 CBC WITH AUTO DIFF [HEME] Timed COMPREHENSIVE METABOLIC PN,CMP [CHEM] Timed 06/23/21 05:11 CRP [C-REACTIVE PROTEIN] [CHEM] AM D Dimer [D-DIMER QUANTITATIVE] [COAG] AM - Plan Plan:: ASSESSMENT AND PLAN COVID-19 pneumonia-complicated by acute respiratory failure with hypoxia. Symptom onset about 06/07. Modest improvement in oxygenation since yesterday, currently requiring 12 L/min via nasal cannula -Supplemental oxygen, wean as able -Dexamethasone 6 mg daily (day 9) -Remdesivir x5 days, completed -Consider baricitinib if respiratory status declines further (patient declined 06/17) -Enoxaparin every 24 hours -Recheck CRP and D-dimer every 2 days -Isolation precautions Insulin-dependent diabetes mellitus-patient normally uses combination of twice daily basal insulin and mealtime insulin. Refuses to consider any adjustment to his insulin regimen -Continue regular long-acting insulin -Usual dose of mealtime insulin -Medium dose sliding scale supplementation Coronary artery disease-recent stenting has improved his dyspnea some. No chest pain. -Continue medical management Maintenance issues - -DVT prophylaxis-enoxaparin -GI prophylaxis-not indicated -Nutrition-diabetic Disposition -I anticipate discharge home after the hospital stay Primary care physician -Dr Neeraj Dsouza
[2021-06-22] MEDS: Magnesium Oxide 400 MG Tab PO SCH (20:07)
[2021-06-22] MEDS: rOPINIRole 0.5 MG Tab PO SCH (20:08)
[2021-06-23] MEDS: Albuterol/Ipratropium 4 GM Inhalation Spray INH SCH ×4 (06:14→21:00)
[2021-06-23] MEDS: Pantoprazole 40 MG Tab.CR PO SCH (07:34)
[2021-06-23] MEDS: Insulin Lispro 100 Unit/ML 3 ML KwikPen SUBCUT SCH ×7 (07:41→19:08)
[2021-06-23] MEDS: Formoterol/Mometasone 200-5 MCG 8.8 GM Inhaler IH SCH ×2 (07:42→20:01)
[2021-06-23] MEDS: Insulin Glargine,Human Rec. Analog 100 Units/ML 3 ML Pen SUBCUT SCH ×2 (08:04→19:59)
[2021-06-23] MEDS: Aspirin 81 MG Tab.EC PO SCH (08:04)
[2021-06-23] MEDS: Azelastine Nasal Soln 30 ML Spray Bottle NASBOTH SCH ×2 (08:04→20:01)
[2021-06-23] MEDS: amLODIPine 5 MG Tab PO SCH (08:05)
[2021-06-23] MEDS: Mometasone Furoate Nasal Spray 17 GM Canister NASBOTH SCH ×2 (08:05→20:03)
[2021-06-23] MEDS: guaiFENesin 600 MG Tab.ER PO SCH ×3 (08:05→20:02)
[2021-06-23] MEDS: Montelukast 10 MG Tab PO SCH (08:06)
[2021-06-23] MEDS: Clopidogrel 75 MG Tab PO SCH (08:06)
[2021-06-23] MEDS: Ezetimibe 10 MG Tab PO SCH (08:07)
[2021-06-23] MEDS: Cholecalciferol (Vitamin D3) 25 MCG Tab PO SCH (08:07)
[2021-06-23] MEDS: Allopurinol 100 MG Tab PO SCH (08:07)
[2021-06-23] MEDS: Metoprolol Succinate 25 MG Tab.ER PO SCH (09:06)
--- NOTE | 2021-06-23 12:13 | PCM.PN ---
- General Info Date of Service: 06/23/21 Subjective Update: Mr. Ross has shown further improvement since yesterday, now down to 4 to 5 L/min via nasal cannula. He feels less short of breath and has noted less cough. Appetite has improved as well as overall energy level and mobility. Functional Status: Reports: Tolerating Diet, Ambulating, Urinating - Review of Systems General: Reports: Weakness, Fatigue. Denies: Fever, Chills Pulmonary: Reports: Shortness of Breath, Cough. Denies: Pleuritic Chest Pain, Sputum, Hemoptysis, Wheezing Cardiovascular: Reports: Dyspnea on Exertion. Denies: Chest Pain, Palpitations, Orthopnea, PND, Edema, Lightheadedness Gastrointestinal: Reports: No Symptoms Genitourinary: Reports: No Symptoms - Patient Data Vitals - Most Recent: Last Vital Signs Temp 97.3 F 06/23/21 07:31 Pulse 64 06/23/21 09:06 Resp 16 06/23/21 07:31 BP 131/71 06/23/21 09:06 Pulse Ox 95 06/23/21 12:00 Weight - Most Recent: 263 lb I&O - Last 24 Hours: Intake & Output 06/22/21 06/23/21 06/23/21 22:59 06:59 14:59 Intake Total 800 600 Output Total 1400 Balance -600 600 Lab Results Last 24 Hours: Laboratory Results - last 24 hr 06/22/21 06/23/21 06/23/21 Range/Units 16:37 05:55 05:55 WBC 12.1 H (4.5-11.0) K/uL RBC 3.97 L (4.30-5.90) M/uL Hgb 12.9 (12.0-15.0) g/dL Hct 36.0 L (40.0-54.0) % MCV 91 (80-98) fL MCH 33 H (27-31) pg MCHC 36 (32-36) % Plt Count 287 (150-400) K/uL Neut % (Auto) 87.7 H (36-66) % Lymph % (Auto) 7.6 L (24-44) % Craven % (Auto) 4.3 (2-6) % Eos % (Auto) 0.2 L (2-4) % Baso % (Auto) 0.2 (0-1) % D-Dimer, Quantitative (0.0-500.0) ng/mL Sodium 136 L (140-148) mmol/L Potassium 5.0 (3.6-5.2) mmol/L Chloride 100 (100-108) mmol/L Carbon Dioxide 26 (21-32) mmol/L Anion Gap 15.0 H (5.0-14.0) mmol/L BUN 30 H (7-18) mg/dL Creatinine 1.3 (0.8-1.3) mg/dL Est Cr Clr Drug Dosing 67.71 mL/min Estimated GFR (MDRD) 55 L (>60) Glucose 304 H (74-106) mg/dL POC Glucose 364 H (74-106) mg/dL Calcium 8.4 L (8.5-10.1) mg/dL Total Bilirubin 0.4 (0.2-1.0) mg/dL AST 27 (15-37) U/L ALT 105 H (12-78) U/L Alkaline Phosphatase 115 (46-116) U/L C-Reactive Protein (0.0-0.3) mg/dL Total Protein 6.4 (6.4-8.2) g/dL Albumin 2.3 L (3.4-5.0) g/dL Globulin 4.1 H (2.3-3.5) g/dL Albumin/Globulin Ratio 0.6 L (1.2-2.2) 06/23/21 06/23/21 06/23/21 Range/Units 05:55 05:55 07:39 WBC (4.5-11.0) K/uL RBC (4.30-5.90) M/uL Hgb (12.0-15.0) g/dL Hct (40.0-54.0) % MCV (80-98) fL MCH (27-31) pg MCHC (32-36) % Plt Count (150-400) K/uL Neut % (Auto) (36-66) % Lymph % (Auto) (24-44) % Craven % (Auto) (2-6) % Eos % (Auto) (2-4) % Baso % (Auto) (0-1) % D-Dimer, Quantitative 974.15 H (0.0-500.0) ng/mL Sodium (140-148) mmol/L Potassium (3.6-5.2) mmol/L Chloride (100-108) mmol/L Carbon Dioxide (21-32) mmol/L Anion Gap (5.0-14.0) mmol/L BUN (7-18) mg/dL Creatinine (0.8-1.3) mg/dL Est Cr Clr Drug Dosing mL/min Estimated GFR (MDRD) (>60) Glucose (74-106) mg/dL POC Glucose 281 H (74-106) mg/dL Calcium (8.5-10.1) mg/dL Total Bilirubin (0.2-1.0) mg/dL AST (15-37) U/L ALT (12-78) U/L Alkaline Phosphatase (46-116) U/L C-Reactive Protein 2.23 H (0.0-0.3) mg/dL Total Protein (6.4-8.2) g/dL Albumin (3.4-5.0) g/dL Globulin (2.3-3.5) g/dL Albumin/Globulin Ratio (1.2-2.2) 06/23/21 Range/Units 11:10 WBC (4.5-11.0) K/uL RBC (4.30-5.90) M/uL Hgb (12.0-15.0) g/dL Hct (40.0-54.0) % MCV (80-98) fL MCH (27-31) pg MCHC (32-36) % Plt Count (150-400) K/uL Neut % (Auto) (36-66) % Lymph % (Auto) (24-44) % Craven % (Auto) (2-6) % Eos % (Auto) (2-4) % Baso % (Auto) (0-1) % D-Dimer, Quantitative (0.0-500.0) ng/mL Sodium (140-148) mmol/L Potassium (3.6-5.2) mmol/L Chloride (100-108) mmol/L Carbon Dioxide (21-32) mmol/L Anion Gap (5.0-14.0) mmol/L BUN (7-18) mg/dL Creatinine (0.8-1.3) mg/dL Est Cr Clr Drug Dosing mL/min Estimated GFR (MDRD) (>60) Glucose (74-106) mg/dL POC Glucose 398 H (74-106) mg/dL Calcium (8.5-10.1) mg/dL Total Bilirubin (0.2-1.0) mg/dL AST (15-37) U/L ALT (12-78) U/L Alkaline Phosphatase (46-116) U/L C-Reactive Protein (0.0-0.3) mg/dL Total Protein (6.4-8.2) g/dL Albumin (3.4-5.0) g/dL Globulin (2.3-3.5) g/dL Albumin/Globulin Ratio (1.2-2.2) Med Orders - Current: Current Medications Acetaminophen (Acetaminophen 325 Mg Tab) 650 mg PO Q4H PRN PRN Reason: Pain (Mild 1-3)/fever Last Admin: 06/18/21 10:58 Dose: 650 mg Documented by: Al Hydroxide/Mg Hydroxide (Aluminum Hydroxide/Magnesium Hydroxide/Simethicone Susp 30 Ml Cup) 30 ml PO Q4H PRN PRN Reason: Indigestion Albuterol (Albuterol 8 Gm Inhaler) 0 gm INH Q2H PRN PRN Reason: Shortness of Breath Last Admin: 06/18/21 11:33 Dose: 2 puff Documented by: Albuterol/Ipratropium (Albuterol/Ipratropium 4 Gm Inhalation [place]) 0 gm INH QID [facility] Last Admin: 06/23/21 06:14 Dose: 2 puff Documented by: Allopurinol (Allopurinol 100 Mg Tab) 100 mg PO DAILY [facility] Last Admin: 06/23/21 08:07 Dose: 100 mg Documented by: Amlodipine Besylate (Amlodipine 5 Mg Tab) 2.5 mg PO DAILY [facility] Last Admin: 06/23/21 08:05 Dose: 2.5 mg Documented by: Aspirin (Aspirin 81 Mg Tab.Ec) 81 mg PO DAILY [facility] Last Admin: 06/23/21 08:04 Dose: 81 mg Documented by: Azelastine HCl (Azelastine Nasal Soln 30 Ml [place] Bottle) 0 ml NASBOTH BID [facility] Last Admin: 06/23/21 08:04 Dose: 2 spray Documented by: Benzonatate (Benzonatate 100 Mg Cap) 100 mg PO TID PRN PRN Reason: Cough Last Admin: 06/15/21 16:16 Dose: 100 mg Documented by: Calcium Carbonate/Glycine (Calcium Carbonate 500 Mg Tab.Chew) 1,000 mg PO Q2H PRN PRN Reason: Indigestion Last Admin: 06/15/21 16:16 Dose: 1,000 mg Documented by: Cholecalciferol (Cholecalciferol (Vitamin D3) 25 Mcg Tab) 25 mcg PO DAILY [facility] Last Admin: 06/23/21 08:07 Dose: 25 mcg Documented by: Clopidogrel Bisulfate (Clopidogrel 75 Mg Tab) 75 mg PO DAILY [facility] Last Admin: 06/23/21 08:06 Dose: 75 mg Documented by: Ezetimibe (Ezetimibe 10 Mg Tab) 10 mg PO DAILY [facility] Last Admin: 06/23/21 08:07 Dose: 10 mg Documented by: Enoxaparin Sodium (Enoxaparin 40 Mg/0.4 Ml Syringe) 40 mg SUBCUT Q24H [facility] Last Admin: 06/22/21 14:39 Dose: 40 mg Documented by: Guaifenesin (Guaifenesin 600 Mg Tab.Er) 600 mg PO TID [facility] Last Admin: 06/23/21 08:05 Dose: 600 mg Documented by: Guaifenesin/Dextromethorphan (Guaifenesin/Dextromethorphan 100-10 Mg/5 Ml Soln 10 Ml Cup) 10 ml PO Q4H PRN PRN Reason: Cough Last Admin: 06/21/21 20:44 Dose: 10 ml Documented by: Insulin Glargine (Insulin Glargine,Human Rec. Analog 100 Units/Ml 3 Ml Pen) 74 units SUBCUT BEDTIME [facility] Last Admin: 06/22/21 20:07 Dose: 74 units Documented by: Insulin Glargine (Insulin Glargine,Human Rec. Analog 100 Units/Ml 3 Ml Pen) 46 units SUBCUT QAM [facility] Last Admin: 06/23/21 08:04 Dose: 46 units Documented by: Insulin Human Lispro (Insulin Lispro 100 Unit/Ml 3 Ml Kwikpen) 0 unit SUBCUT QIDACANDBED [facility]; Protocol Last Admin: 06/23/21 07:43 Dose: 7 units Documented by: Insulin Human Lispro (Insulin Lispro 100 Unit/Ml 3 Ml Kwikpen) 28 unit SUBCUT TIDMEALS [facility] Last Admin: 06/23/21 07:41 Dose: 28 units Documented by: Lorazepam (Lorazepam 2 Mg/Ml Sdv) 0.5 mg IVPUSH Q4H PRN PRN Reason: Nausea/Vomiting Magnesium Hydroxide (Magnesium Hydroxide 400 Mg/5 Ml Susp 30 Ml Cup) 30 ml PO Q12H PRN PRN Reason: Constipation Magnesium Oxide (Magnesium Oxide 400 Mg Tab) 400 mg PO BEDTIME [facility] Last Admin: 06/22/21 20:07 Dose: 400 mg Documented by: Melatonin (Melatonin 3 Mg Tab) 9 mg PO BEDTIME PRN PRN Reason: Sleep Last Admin: 06/20/21 23:09 Dose: 9 mg Documented by: Metoprolol Succinate (Metoprolol Succinate 25 Mg Tab.Er) 25 mg PO DAILY [facility] Last Admin: 06/23/21 09:06 Dose: 25 mg Documented by: Mometasone Furoate (Mometasone Furoate Nasal [place] 17 Gm Canister) 0 gm NASBOTH BID [facility] Last Admin: 06/23/21 08:05 Dose: 2 spray Documented by: Mometasone Furoate/Formoterol Fumar (Formoterol/Mometasone 200-5 Mcg 8.8 Gm Inhaler) 2 puff IH BIDRT [facility] Last Admin: 06/23/21 07:42 Dose: 2 puff Documented by: Montelukast Sodium (Montelukast 10 Mg Tab) 10 mg PO DAILY [facility] Last Admin: 06/23/21 08:06 Dose: 10 mg Documented by: Ondansetron HCl (Ondansetron 4 Mg/2 Ml Sdv) 4 mg IV Q6H PRN PRN Reason: Nausea/Vomiting Ondansetron HCl (Ondansetron 4 Mg Tab.Dis) 4 mg PO Q6H PRN PRN Reason: Nausea able to take PO Last Admin: 06/21/21 00:43 Dose: 4 mg Documented by: Pantoprazole Sodium (Pantoprazole 40 Mg Tab.Cr) 40 mg PO ACBREAKFAST [facility] Last Admin: 06/23/21 07:34 Dose: 40 mg Documented by: Kike 3mg 0 each SUBCUT We@0900 [facility] Last Admin: 06/21/21 11:39 Dose: 1 each Documented by: Ramipril (Ramipril 2.5 Mg Cap) 5 mg PO DAILY [facility] Last Admin: 06/23/21 08:03 Dose: 5 mg Documented by: Ropinirole HCl (Ropinirole 0.5 Mg Tab) 0.5 mg PO BEDTIME [facility] Last Admin: 06/22/21 20:08 Dose: 0.5 mg Documented by: Senna/Docusate Sodium (Docusate Sodium/Sennosides 50-8.6 Mg Tab) 1 tab PO BID PRN PRN Reason: Constipation Discontinued Medications Acetaminophen (Acetaminophen 325 Mg Tab) 650 mg PO Q4H PRN PRN Reason: Fever Greater Than 101 Last Admin: 06/13/21 13:47 Dose: 650 mg Documented by: Azithromycin (Azithromycin 250 Mg Tab) 500 mg PO DAILY [facility] Stop: 06/18/21 09:01 Last Admin: 06/18/21 08:47 Dose: 500 mg Documented by: Dexamethasone (Dexamethasone 4 Mg/Ml Sdv) 6 mg IVPUSH DAILY [facility] Stop: 06/22/21 09:01 Last Admin: 06/13/21 13:48 Dose: 6 mg Documented by: Dexamethasone (Dexamethasone 4 Mg/Ml Sdv) 6 mg IVPUSH Q24H [facility] Stop: 06/22/21 14:01 Last Admin: 06/22/21 14:39 Dose: 6 mg Documented by: Enoxaparin Sodium (Enoxaparin 40 Mg/0.4 Ml Syringe) 40 mg SUBCUT DAILY [facility] Last Admin: 06/13/21 13:57 Dose: 40 mg Documented by: Furosemide (Furosemide 40 Mg/4 Ml Vial) 40 mg IVPUSH NOW ONE Stop: 06/18/21 12:26 Last Admin: 06/18/21 13:24 Dose: 40 mg Documented by: Remdesivir 200 mg/ Sodium (Chloride) 250 mls @ 250 mls/hr IV ONETIME ONE Stop: 06/13/21 14:14 Last Admin: 06/13/21 13:51 Dose: 250 mls/hr Documented by: Remdesivir 100 mg/ Sodium (Chloride) 100 mls @ 100 mls/hr IV Q24H [facility] Stop: 06/17/21 14:59 Last Admin: 06/17/21 13:08 Dose: 100 mls/hr Documented by: Insulin Human Lispro (Insulin Lispro 100 Unit/Ml 3 Ml Kwikpen) 18 unit SUBCUT TIDMEALS [facility] Last Admin: 06/14/21 08:43 Dose: 18 units Documented by: Patient Own Medication (Patient's Own Medication 1 Each) 0 each SUBCUT .WEEKLY [facility] - Exam Quality Assessment: Supplemental Oxygen, DVT Prophylaxis General: Alert, Oriented, Cooperative, Mild Distress Lungs: Clear to Auscultation, Normal Respiratory Effort, Decreased Breath Sounds. No: Rales, Rhonchi, Wheezing Cardiovascular: Regular Rate, Regular Rhythm, No Murmurs GI/Abdominal Exam: Soft, Non-Tender, No Organomegaly, No Distention Extremities: Non-Tender, No Pedal Edema - Patient Data Lab Results Last 24 hrs: Laboratory Results - last 24 hr 06/22/21 06/23/21 06/23/21 Range/Units 16:37 05:55 05:55 WBC 12.1 H (4.5-11.0) K/uL RBC 3.97 L (4.30-5.90) M/uL Hgb 12.9 (12.0-15.0) g/dL Hct 36.0 L (40.0-54.0) % MCV 91 (80-98) fL MCH 33 H (27-31) pg MCHC 36 (32-36) % Plt Count 287 (150-400) K/uL Neut % (Auto) 87.7 H (36-66) % Lymph % (Auto) 7.6 L (24-44) % Craven % (Auto) 4.3 (2-6) % Eos % (Auto) 0.2 L (2-4) % Baso % (Auto) 0.2 (0-1) % D-Dimer, Quantitative (0.0-500.0) ng/mL Sodium 136 L (140-148) mmol/L Potassium 5.0 (3.6-5.2) mmol/L Chloride 100 (100-108) mmol/L Carbon Dioxide 26 (21-32) mmol/L Anion Gap 15.0 H (5.0-14.0) mmol/L BUN 30 H (7-18) mg/dL Creatinine 1.3 (0.8-1.3) mg/dL Est Cr Clr Drug Dosing 67.71 mL/min Estimated GFR (MDRD) 55 L (>60) Glucose 304 H (74-106) mg/dL POC Glucose 364 H (74-106) mg/dL Calcium 8.4 L (8.5-10.1) mg/dL Total Bilirubin 0.4 (0.2-1.0) mg/dL AST 27 (15-37) U/L ALT 105 H (12-78) U/L Alkaline Phosphatase 115 (46-116) U/L C-Reactive Protein (0.0-0.3) mg/dL Total Protein 6.4 (6.4-8.2) g/dL Albumin 2.3 L (3.4-5.0) g/dL Globulin 4.1 H (2.3-3.5) g/dL Albumin/Globulin Ratio 0.6 L (1.2-2.2) 06/23/21 06/23/21 06/23/21 Range/Units 05:55 05:55 07:39 WBC (4.5-11.0) K/uL RBC (4.30-5.90) M/uL Hgb (12.0-15.0) g/dL Hct (40.0-54.0) % MCV (80-98) fL MCH (27-31) pg MCHC (32-36) % Plt Count (150-400) K/uL Neut % (Auto) (36-66) % Lymph % (Auto) (24-44) % Craven % (Auto) (2-6) % Eos % (Auto) (2-4) % Baso % (Auto) (0-1) % D-Dimer, Quantitative 974.15 H (0.0-500.0) ng/mL Sodium (140-148) mmol/L Potassium (3.6-5.2) mmol/L Chloride (100-108) mmol/L Carbon Dioxide (21-32) mmol/L Anion Gap (5.0-14.0) mmol/L BUN (7-18) mg/dL Creatinine (0.8-1.3) mg/dL Est Cr Clr Drug Dosing mL/min Estimated GFR (MDRD) (>60) Glucose (74-106) mg/dL POC Glucose 281 H (74-106) mg/dL Calcium (8.5-10.1) mg/dL Total Bilirubin (0.2-1.0) mg/dL AST (15-37) U/L ALT (12-78) U/L Alkaline Phosphatase (46-116) U/L C-Reactive Protein 2.23 H (0.0-0.3) mg/dL Total Protein (6.4-8.2) g/dL Albumin (3.4-5.0) g/dL Globulin (2.3-3.5) g/dL Albumin/Globulin Ratio (1.2-2.2) 06/23/21 Range/Units 11:10 WBC (4.5-11.0) K/uL RBC (4.30-5.90) M/uL Hgb (12.0-15.0) g/dL Hct (40.0-54.0) % MCV (80-98) fL MCH (27-31) pg MCHC (32-36) % Plt Count (150-400) K/uL Neut % (Auto) (36-66) % Lymph % (Auto) (24-44) % Craven % (Auto) (2-6) % Eos % (Auto) (2-4) % Baso % (Auto) (0-1) % D-Dimer, Quantitative (0.0-500.0) ng/mL Sodium (140-148) mmol/L Potassium (3.6-5.2) mmol/L Chloride (100-108) mmol/L Carbon Dioxide (21-32) mmol/L Anion Gap (5.0-14.0) mmol/L BUN (7-18) mg/dL Creatinine (0.8-1.3) mg/dL Est Cr Clr Drug Dosing mL/min Estimated GFR (MDRD) (>60) Glucose (74-106) mg/dL POC Glucose 398 H (74-106) mg/dL Calcium (8.5-10.1) mg/dL Total Bilirubin (0.2-1.0) mg/dL AST (15-37) U/L ALT (12-78) U/L Alkaline Phosphatase (46-116) U/L C-Reactive Protein (0.0-0.3) mg/dL Total Protein (6.4-8.2) g/dL Albumin (3.4-5.0) g/dL Globulin (2.3-3.5) g/dL Albumin/Globulin Ratio (1.2-2.2) Result Diagrams: 06/23/21 05:55 06/23/21 05:55 Sepsis Event Note - Evaluation Sepsis Screening Result: No Definite Risk - Focused Exam Vital Signs: Vital Signs Temp Pulse Pulse Resp BP BP Pulse Ox 06/23/21 12:00 95 06/23/21 09:06 64 131/71 06/23/21 08:05 131/71 06/23/21 08:03 131/71 06/23/21 08:00 06/23/21 07:31 97.3 F 64 16 131/71 95 06/23/21 07:14 93 L 06/23/21 03:48 97.2 F 67 16 133/70 91 L 06/23/21 01:08 98 Pulse Ox 06/23/21 12:00 06/23/21 09:06 06/23/21 08:05 06/23/21 08:03 06/23/21 08:00 96 06/23/21 07:31 06/23/21 07:14 06/23/21 03:48 06/23/21 01:08 - Problem List Review Problem List Initiated/Reviewed/Updated: Yes - Plan Plan:: ASSESSMENT AND PLAN COVID-19 pneumonia-complicated by acute respiratory failure with hypoxia. Symptom onset about 06/07. Good improvement in oxygenation since yesterday, currently requiring 5 L/min via nasal cannula -Supplemental oxygen, wean as able -Dexamethasone 6 mg daily (day 10) -Remdesivir x5 days, completed -Enoxaparin every 24 hours -Recheck CRP and D-dimer every 2 days -Isolation precautions Insulin-dependent diabetes mellitus-patient normally uses combination of twice daily basal insulin and mealtime insulin. Refuses to consider any adjustment to his insulin regimen -Continue regular long-acting insulin -Usual dose of mealtime insulin -Medium dose sliding scale supplementation Coronary artery disease-recent stenting has improved his dyspnea some. No chest pain. -Continue medical management Maintenance issues - -DVT prophylaxis-enoxaparin -GI prophylaxis-not indicated -Nutrition-diabetic Disposition -I anticipate discharge home after the hospital stay Primary care physician -Dr Neeraj Dsouza
[2021-06-23] MEDS: Enoxaparin 40 MG/0.4 ML Syringe SUBCUT SCH (13:33)
[2021-06-23] MEDS ORDERED: Insulin Lispro 100 Unit/ML 3 ML KwikPen SUBCUT ONE (16:48)
[2021-06-23] MEDS ORDERED: 50% Dextrose in Water 50 ML Syringe IVPUSH PRN (16:48)
[2021-06-23] MEDS ORDERED: Glucagon,Human Recombinant 1 MG Vial IM PRN (16:48)
[2021-06-23] MEDS: Benzonatate 100 MG Cap PO PRN (20:01)
[2021-06-23] MEDS: guaiFENesin/Dextromethorphan 100-10 MG/5 ML Soln 10 ML Cup PO PRN (20:01)
[2021-06-23] MEDS: Magnesium Oxide 400 MG Tab PO SCH (20:02)
[2021-06-23] MEDS: rOPINIRole 0.5 MG Tab PO SCH (20:03)
[2021-06-24] MEDS: Albuterol/Ipratropium 4 GM Inhalation Spray INH SCH ×5 (08:32→22:10)
[2021-06-24] MEDS: Formoterol/Mometasone 200-5 MCG 8.8 GM Inhaler IH SCH ×2 (08:33→20:52)
[2021-06-24] MEDS: Insulin Lispro 100 Unit/ML 3 ML KwikPen SUBCUT SCH ×7 (09:08→19:47)
[2021-06-24] MEDS: Insulin Glargine,Human Rec. Analog 100 Units/ML 3 ML Pen SUBCUT SCH ×2 (09:10→20:51)
[2021-06-24] MEDS: Pantoprazole 40 MG Tab.CR PO SCH (09:13)
[2021-06-24] MEDS: Azelastine Nasal Soln 30 ML Spray Bottle NASBOTH SCH ×2 (09:14→20:52)
[2021-06-24] MEDS: Mometasone Furoate Nasal Spray 17 GM Canister NASBOTH SCH ×2 (09:15→20:53)
[2021-06-24] MEDS: guaiFENesin 600 MG Tab.ER PO SCH ×3 (09:15→20:52)
[2021-06-24] MEDS: Aspirin 81 MG Tab.EC PO SCH (09:15)
[2021-06-24] MEDS: Cholecalciferol (Vitamin D3) 25 MCG Tab PO SCH (09:16)
[2021-06-24] MEDS: amLODIPine 5 MG Tab PO SCH (09:16)
[2021-06-24] MEDS: Metoprolol Succinate 25 MG Tab.ER PO SCH (09:16)
[2021-06-24] MEDS: Montelukast 10 MG Tab PO SCH (09:17)
[2021-06-24] MEDS: Clopidogrel 75 MG Tab PO SCH (09:17)
[2021-06-24] MEDS: Ezetimibe 10 MG Tab PO SCH (09:18)
[2021-06-24] MEDS: Allopurinol 100 MG Tab PO SCH (09:18)
--- NOTE | 2021-06-24 14:00 | PCM.PN ---
- General Info Date of Service: 06/24/21 Subjective Update: Mr. Ross has experienced further improvement in oxygenation over the last 24 hours. He is currently on room air with adequate saturations. He reports less shortness of breath and his cough has almost totally resolved. Appetite and energy level improving on a daily basis. - Review of Systems General: Reports: Weakness, Fatigue, Chills. Denies: Fever Pulmonary: Reports: Shortness of Breath, Cough, Sputum. Denies: Pleuritic Chest Pain, Hemoptysis, Wheezing Cardiovascular: Reports: Dyspnea on Exertion. Denies: Chest Pain, Palpitations, Orthopnea, PND, Edema, Lightheadedness Gastrointestinal: Reports: No Symptoms Genitourinary: Reports: No Symptoms - Patient Data Vitals - Most Recent: Last Vital Signs Temp 98.5 F 06/24/21 07:15 Pulse 89 06/24/21 11:00 Resp 16 06/24/21 11:00 BP 113/61 06/24/21 09:17 Pulse Ox 91 L 06/24/21 12:24 Weight - Most Recent: 263 lb I&O - Last 24 Hours: Intake & Output 06/23/21 06/24/21 06/24/21 22:59 06:59 14:59 Intake Total 1000 2000 1500 Balance 1000 2000 1500 Lab Results Last 24 Hours: Laboratory Results - last 24 hr 06/23/21 06/24/21 06/24/21 Range/Units 16:34 08:43 11:27 POC Glucose 422 H* 214 H 246 H (74-106) mg/dL Med Orders - Current: Current Medications Acetaminophen (Acetaminophen 325 Mg Tab) 650 mg PO Q4H PRN PRN Reason: Pain (Mild 1-3)/fever Last Admin: 06/18/21 10:58 Dose: 650 mg Documented by: Al Hydroxide/Mg Hydroxide (Aluminum Hydroxide/Magnesium Hydroxide/Simethicone Susp 30 Ml Cup) 30 ml PO Q4H PRN PRN Reason: Indigestion Albuterol (Albuterol 8 Gm Inhaler) 0 gm INH Q2H PRN PRN Reason: Shortness of Breath Last Admin: 06/18/21 11:33 Dose: 2 puff Documented by: Albuterol/Ipratropium (Albuterol/Ipratropium 4 Gm Inhalation [place]) 0 gm INH QID IVANA Last Admin: 06/24/21 12:13 Dose: 2 puff Documented by: Allopurinol (Allopurinol 100 Mg Tab) 100 mg PO DAILY [facility] Last Admin: 06/24/21 09:18 Dose: 100 mg Documented by: Amlodipine Besylate (Amlodipine 5 Mg Tab) 2.5 mg PO DAILY [facility] Last Admin: 06/24/21 09:16 Dose: 2.5 mg Documented by: Aspirin (Aspirin 81 Mg Tab.Ec) 81 mg PO DAILY [facility] Last Admin: 06/24/21 09:15 Dose: 81 mg Documented by: Azelastine HCl (Azelastine Nasal Soln 30 Ml [place] Bottle) 0 ml NASBOTH BID [facility] Last Admin: 06/24/21 09:14 Dose: 2 spray Documented by: Benzonatate (Benzonatate 100 Mg Cap) 100 mg PO TID PRN PRN Reason: Cough Last Admin: 06/23/21 20:01 Dose: 100 mg Documented by: Calcium Carbonate/Glycine (Calcium Carbonate 500 Mg Tab.Chew) 1,000 mg PO Q2H PRN PRN Reason: Indigestion Last Admin: 06/15/21 16:16 Dose: 1,000 mg Documented by: Cholecalciferol (Cholecalciferol (Vitamin D3) 25 Mcg Tab) 25 mcg PO DAILY [facility] Last Admin: 06/24/21 09:16 Dose: 25 mcg Documented by: Clopidogrel Bisulfate (Clopidogrel 75 Mg Tab) 75 mg PO DAILY [facility] Last Admin: 06/24/21 09:17 Dose: 75 mg Documented by: Dextrose/Water (50% Dextrose In Water 50 Ml Syringe) 50 ml IVPUSH ASDIRECTED PRN PRN Reason: Hypoglycemia Ezetimibe (Ezetimibe 10 Mg Tab) 10 mg PO DAILY [facility] Last Admin: 06/24/21 09:18 Dose: 10 mg Documented by: Enoxaparin Sodium (Enoxaparin 40 Mg/0.4 Ml Syringe) 40 mg SUBCUT Q24H [facility] Last Admin: 06/23/21 13:33 Dose: 40 mg Documented by: Glucagon (Glucagon,Human Recombinant 1 Mg Vial) 1 mg IM ASDIRECTED PRN PRN Reason: Hypoglycemia Guaifenesin (Guaifenesin 600 Mg Tab.Er) 600 mg PO TID [facility] Last Admin: 06/24/21 09:15 Dose: 600 mg Documented by: Guaifenesin/Dextromethorphan (Guaifenesin/Dextromethorphan 100-10 Mg/5 Ml Soln 10 Ml Cup) 10 ml PO Q4H PRN PRN Reason: Cough Last Admin: 06/23/21 20:01 Dose: 10 ml Documented by: Insulin Glargine (Insulin Glargine,Human Rec. Analog 100 Units/Ml 3 Ml Pen) 74 units SUBCUT BEDTIME [facility] Last Admin: 06/23/21 19:59 Dose: 74 units Documented by: Insulin Glargine (Insulin Glargine,Human Rec. Analog 100 Units/Ml 3 Ml Pen) 46 units SUBCUT QAM [facility] Last Admin: 06/24/21 09:10 Dose: 46 units Documented by: Insulin Human Lispro (Insulin Lispro 100 Unit/Ml 3 Ml Kwikpen) 0 unit SUBCUT QIDACANDBED [facility]; Protocol Last Admin: 06/24/21 12:14 Dose: 5 units Documented by: Insulin Human Lispro (Insulin Lispro 100 Unit/Ml 3 Ml Kwikpen) 28 unit SUBCUT TIDMEALS [facility] Last Admin: 06/24/21 12:14 Dose: 28 units Documented by: Lorazepam (Lorazepam 2 Mg/Ml Sdv) 0.5 mg IVPUSH Q4H PRN PRN Reason: Nausea/Vomiting Magnesium Hydroxide (Magnesium Hydroxide 400 Mg/5 Ml Susp 30 Ml Cup) 30 ml PO Q12H PRN PRN Reason: Constipation Magnesium Oxide (Magnesium Oxide 400 Mg Tab) 400 mg PO BEDTIME [facility] Last Admin: 06/23/21 20:02 Dose: 400 mg Documented by: Melatonin (Melatonin 3 Mg Tab) 9 mg PO BEDTIME PRN PRN Reason: Sleep Last Admin: 06/20/21 23:09 Dose: 9 mg Documented by: Metoprolol Succinate (Metoprolol Succinate 25 Mg Tab.Er) 25 mg PO DAILY [facility] Last Admin: 06/24/21 09:16 Dose: 25 mg Documented by: Mometasone Furoate (Mometasone Furoate Nasal [place] 17 Gm Canister) 0 gm NASBOTH BID [facility] Last Admin: 06/24/21 09:15 Dose: 2 spray Documented by: Mometasone Furoate/Formoterol Fumar (Formoterol/Mometasone 200-5 Mcg 8.8 Gm Inhaler) 2 puff IH BIDRT [facility] Last Admin: 06/24/21 08:33 Dose: 2 puff Documented by: Montelukast Sodium (Montelukast 10 Mg Tab) 10 mg PO DAILY [facility] Last Admin: 06/24/21 09:17 Dose: 10 mg Documented by: Ondansetron HCl (Ondansetron 4 Mg/2 Ml Sdv) 4 mg IV Q6H PRN PRN Reason: Nausea/Vomiting Ondansetron HCl (Ondansetron 4 Mg Tab.Dis) 4 mg PO Q6H PRN PRN Reason: Nausea able to take PO Last Admin: 06/21/21 00:43 Dose: 4 mg Documented by: Pantoprazole Sodium (Pantoprazole 40 Mg Tab.Cr) 40 mg PO ACBREAKFAST [facility] Last Admin: 06/24/21 09:13 Dose: 40 mg Documented by: Kike 3mg 0 each SUBCUT We@0900 [facility] Last Admin: 06/21/21 11:39 Dose: 1 each Documented by: Ramipril (Ramipril 2.5 Mg Cap) 5 mg PO DAILY [facility] Last Admin: 06/24/21 09:17 Dose: 5 mg Documented by: Ropinirole HCl (Ropinirole 0.5 Mg Tab) 0.5 mg PO BEDTIME [facility] Last Admin: 06/23/21 20:03 Dose: 0.5 mg Documented by: Senna/Docusate Sodium (Docusate Sodium/Sennosides 50-8.6 Mg Tab) 1 tab PO BID PRN PRN Reason: Constipation Discontinued Medications Acetaminophen (Acetaminophen 325 Mg Tab) 650 mg PO Q4H PRN PRN Reason: Fever Greater Than 101 Last Admin: 06/13/21 13:47 Dose: 650 mg Documented by: Azithromycin (Azithromycin 250 Mg Tab) 500 mg PO DAILY [facility] Stop: 06/18/21 09:01 Last Admin: 06/18/21 08:47 Dose: 500 mg Documented by: Dexamethasone (Dexamethasone 4 Mg/Ml Sdv) 6 mg IVPUSH DAILY [facility] Stop: 06/22/21 09:01 Last Admin: 06/13/21 13:48 Dose: 6 mg Documented by: Dexamethasone (Dexamethasone 4 Mg/Ml Sdv) 6 mg IVPUSH Q24H [facility] Stop: 06/22/21 14:01 Last Admin: 06/22/21 14:39 Dose: 6 mg Documented by: Enoxaparin Sodium (Enoxaparin 40 Mg/0.4 Ml Syringe) 40 mg SUBCUT DAILY [facility] Last Admin: 06/13/21 13:57 Dose: 40 mg Documented by: Furosemide (Furosemide 40 Mg/4 Ml Vial) 40 mg IVPUSH NOW ONE Stop: 06/18/21 12:26 Last Admin: 06/18/21 13:24 Dose: 40 mg Documented by: Remdesivir 200 mg/ Sodium (Chloride) 250 mls @ 250 mls/hr IV ONETIME ONE Stop: 06/13/21 14:14 Last Admin: 06/13/21 13:51 Dose: 250 mls/hr Documented by: Remdesivir 100 mg/ Sodium (Chloride) 100 mls @ 100 mls/hr IV Q24H IVANA Stop: 06/17/21 14:59 Last Admin: 06/17/21 13:08 Dose: 100 mls/hr Documented by: Insulin Human Lispro (Insulin Lispro 100 Unit/Ml 3 Ml Kwikpen) 18 unit SUBCUT TIDMEALS [facility] Last Admin: 06/14/21 08:43 Dose: 18 units Documented by: Insulin Human Lispro (Insulin Lispro 100 Unit/Ml 3 Ml Kwikpen) 12 unit SUBCUT ONETIME ONE Stop: 06/23/21 16:49 Last Admin: 06/23/21 17:18 Dose: 12 units Documented by: Patient Own Medication (Patient's Own Medication 1 Each) 0 each SUBCUT .WEEKLY IVANA - Exam Quality Assessment: DVT Prophylaxis. No: Supplemental Oxygen General: Alert, Oriented, Cooperative, Mild Distress Lungs: Crackles. No: Rales, Rhonchi, Wheezing Cardiovascular: Regular Rate, Regular Rhythm, No Murmurs GI/Abdominal Exam: Soft, Non-Tender, No Organomegaly, No Distention Extremities: Non-Tender, No Pedal Edema - Patient Data Lab Results Last 24 hrs: Laboratory Results - last 24 hr 06/23/21 06/24/21 06/24/21 Range/Units 16:34 08:43 11:27 POC Glucose 422 H* 214 H 246 H (74-106) mg/dL Result Diagrams: 06/23/21 05:55 06/23/21 05:55 Sepsis Event Note - Evaluation Sepsis Screening Result: No Definite Risk - Focused Exam Vital Signs: Vital Signs Temp Pulse Pulse Resp BP BP Pulse Ox 06/24/21 12:24 91 L 06/24/21 11:00 89 16 93 L 06/24/21 09:17 113/61 06/24/21 09:16 100 113/61 06/24/21 07:17 95 06/24/21 07:15 98.5 F 65 17 131/71 94 L 06/24/21 02:21 91 L 06/24/21 02:00 97.2 F 88 16 123/64 91 L - Problem List Review Problem List Initiated/Reviewed/Updated: Yes - My Orders Last 24 Hours: My Active Orders 06/23/21 16:48 Dextrose 50% in Water 50 ml IVPUSH ASDIRECTED PRN Glucagon,Human Recombinant [GlucaGen] 1 mg IM ASDIRECTED PRN 06/24/21 11:30 GLUCOSE POC LAB TO COLLECT JPM [POC] QIDACANDBED 06/24/21 16:30 GLUCOSE POC LAB TO COLLECT JPM [POC] QIDACANDBED 06/25/21 07:30 GLUCOSE POC LAB TO COLLECT JPM [POC] QIDACANDBED 06/25/21 11:30 GLUCOSE POC LAB TO COLLECT JPM [POC] QIDACANDBED 06/25/21 16:30 GLUCOSE POC LAB TO COLLECT JPM [POC] QIDACANDBED 06/25/21 21:00 GLUCOSE POC LAB TO COLLECT JPM [POC] QIDACANDBED 06/26/21 07:30 GLUCOSE POC LAB TO COLLECT JPM [POC] QIDACANDBED 06/26/21 11:30 GLUCOSE POC LAB TO COLLECT JPM [POC] QIDACANDBED 06/26/21 16:30 GLUCOSE POC LAB TO COLLECT JPM [POC] QIDACANDBED - Plan Plan:: ASSESSMENT AND PLAN COVID-19 pneumonia-complicated by acute respiratory failure with hypoxia. Symptom onset about 06/05. Good improvement in oxygenation since yesterday, currently requiring no supplemental oxygen -Dexamethasone 6 mg daily, completed -Start dexamethasone taper today 4 mg daily, day 1 of 4 -Remdesivir x5 days, completed -Enoxaparin every 24 hours -Isolation precautions will be completed tomorrow Insulin-dependent diabetes mellitus-patient normally uses combination of twice daily basal insulin and mealtime insulin. Refuses to consider any adjustment to his insulin regimen -Continue regular long-acting insulin -Usual dose of mealtime insulin -Medium dose sliding scale supplementation Coronary artery disease-recent stenting has improved his dyspnea some. No chest pain. -Continue medical management Maintenance issues - -DVT prophylaxis-enoxaparin -GI prophylaxis-not indicated -Nutrition-diabetic Disposition -I anticipate discharge home after the hospital stay Primary care physician -Dr Neeraj Dsouza
[2021-06-24] MEDS: Enoxaparin 40 MG/0.4 ML Syringe SUBCUT SCH (14:31)
[2021-06-24] MEDS: Dexamethasone 2 MG Tab PO SCH (14:32)
[2021-06-24] MEDS: rOPINIRole 0.5 MG Tab PO SCH (20:53)
[2021-06-24] MEDS: Magnesium Oxide 400 MG Tab PO SCH (20:53)
[2021-06-25 01:10] VITALS: BP 122/63
[2021-06-25] MEDS: Albuterol/Ipratropium 4 GM Inhalation Spray INH SCH ×2 (07:21→11:44)
[2021-06-25] MEDS: Formoterol/Mometasone 200-5 MCG 8.8 GM Inhaler IH SCH (07:26)
[2021-06-25] MEDS: Insulin Lispro 100 Unit/ML 3 ML KwikPen SUBCUT SCH ×4 (07:27→11:45)
[2021-06-25] MEDS: Pantoprazole 40 MG Tab.CR PO SCH (07:30)
[2021-06-25 07:34] VITALS: PULSE 89
[2021-06-25] MEDS: Dexamethasone 2 MG Tab PO SCH (08:06)
[2021-06-25] MEDS: Aspirin 81 MG Tab.EC PO SCH (08:06)
[2021-06-25] MEDS: Azelastine Nasal Soln 30 ML Spray Bottle NASBOTH SCH (08:06)
[2021-06-25] MEDS: Mometasone Furoate Nasal Spray 17 GM Canister NASBOTH SCH (08:07)
[2021-06-25] MEDS: amLODIPine 5 MG Tab PO SCH (08:07)
[2021-06-25] MEDS: guaiFENesin 600 MG Tab.ER PO SCH (08:07)
[2021-06-25] MEDS: Cholecalciferol (Vitamin D3) 25 MCG Tab PO SCH (08:09)
[2021-06-25] MEDS: Clopidogrel 75 MG Tab PO SCH (08:09)
[2021-06-25] MEDS: Allopurinol 100 MG Tab PO SCH (08:09)
[2021-06-25] MEDS: Montelukast 10 MG Tab PO SCH (08:09)
[2021-06-25] MEDS: Metoprolol Succinate 25 MG Tab.ER PO SCH (08:09)
[2021-06-25] MEDS: Ezetimibe 10 MG Tab PO SCH (08:09)
[2021-06-25] MEDS: Insulin Glargine,Human Rec. Analog 100 Units/ML 3 ML Pen SUBCUT SCH (08:10)
--- NOTE | 2021-06-25 11:11 | PCM.DCSUM1 ---
Discharge Summary - Hospital Course Brief History: Mr. Ross is a 66-year-old gentleman who was admitted through the emergency department with weakness, shortness of breath, and hypoxia, secondary to COVID-19 infection. - Discharge Data Discharge Date: 06/25/21 Discharge Disposition: Home, Self-Care 01 Condition: Fair - Referral to Home Health Primary Care Physician: PCP None - Discharge Diagnosis/Problem(s) (1) Pneumonia due to COVID-19 virus SNOMED Code(s): 235416500149638865 ICD Code: U07.1 - COVID-19; J12.82 - PNEUMONIA DUE TO CORONAVIRUS DISEASE 2018 Status: Acute Current Visit: Yes (2) Acute respiratory failure with hypoxia SNOMED Code(s): 34561810, 962924011 ICD Code: J96.01 - ACUTE RESPIRATORY FAILURE WITH HYPOXIA Status: Acute Current Visit: Yes (3) Insulin dependent diabetes mellitus SNOMED Code(s): 70539967 ICD Code: [id number] - Status: Chronic Current Visit: Yes (4) Coronary artery disease SNOMED Code(s): 51826285 ICD Code: I25.10 - ATHSCL HEART DISEASE OF [place] CORONARY ARTERY W/O ANG PCTRS Status: Chronic Current Visit: Yes Qualifiers: Coronary Disease-Associated Artery/Lesion type: [place] artery [place] vs. transplanted heart: [place] heart Associated angina: without angina Qualified Code(s): I25.10 - Atherosclerotic heart disease of [place] coronary artery without angina pectoris (5) COVID-19 SNOMED Code(s): 983160258 ICD Code: U07.1 - COVID-19 Status: Acute Current Visit: Yes (6) CKD (chronic kidney disease) stage 3, GFR 30-59 ml/min SNOMED Code(s): 008041093 ICD Code: N18.30 - CHRONIC KIDNEY DISEASE, STAGE 3 UNSPECIFIED Status: Chronic Current Visit: No - Patient Summary/Data Hospital Course: Mr. Ross presented to the emergency room with weakness and shortness of breath. He had been ill for about 10 days with sinus congestion, cough and now progressive shortness of breath. Over the last 24 hours he has developed weakness and had a fall last night and another one today. He has not had much of an appetite and has had very little to eat or drink in the last couple of days. He did have a fever with a drenching sweat last night but prior to that had not had any subjective fevers or chills. He has not had nausea, vomiting, diarrhea or abdominal pain. No headache or myalgias. He is not aware of an obvious sick contact but was in [place] for an angiogram about 1 week prior to onset of symptoms. He tested positive for Covid yesterday and was prescribed doxycycline and prednisone and had 1 dose of the steroids and 2 doses of antibiotics. Work- up in the emergency room revealed hypoxia necessitating 2 L of supplemental oxygen. D-dimer and CRP are moderately elevated. He was admitted for management of Covid pneumonia with hypoxic respiratory failure. On admission he was started on the usual 5-day course of remdesivir as well as Decadron and enoxaparin. Unfortunately after admission oxygen requirements did increase to t he point where he was on 15 L of oxygen per minute via high flow nasal cannula. Discussion was held with the patient concerning other options for treatment and a course of baricitinib was recommended. After discussion patient refused this treatment. Fortunately he gradually improved and by the time of discharge was off of all supplemental oxygen for 24 hours without significant desaturations on room air. He will be discharged home with a tapering dose of dexamethasone. Activity will be as tolerated and he will remain on a diabetic diet. Follow-up appointment will be scheduled with his primary care provider within 1 week. - Patient Instructions Diet: Diabetic Diet Activity: As Tolerated Other/Special Instructions: Please schedule follow-up appointment with primary care provider within 1 week. - Discharge Plan *PRESCRIPTION DRUG MONITORING PROGRAM REVIEWED*: Not Applicable *COPY OF PRESCRIPTION DRUG MONITORING REPORT IN PATIENT DENISE: Not Applicable Prescriptions/Med Rec: dexAMETHasone [Dexamethasone] 4 mg PO DAILY #10 tablet Home Medications: Home Meds Aspirin [Low Dose Aspirin EC] 81 mg PO DAILY 04/30/14 [History] Cholecalciferol (Vitamin D3) [Vitamin D3] 1,000 units PO DAILY 04/30/14 [History] Insulin Glargine,Hum.Rec.Anlog [Lantus Solostar] 46 units SUBCUT QAM 04/30/14 [History] Mometasone/Formoterol [Dulera 200-5 MCG] 2 puff INH BID 04/30/14 [History] ramipriL [Altace] 5 mg PO DAILY 04/30/14 [History] Insulin Glarg,Human.Rec.Analog [Lantus Solostar] 74 unit SQ QPM 08/18/14 [History] Azelastine [Astelin Nasal Soln] 2 inhalation ANA BID 04/13/21 [History] Dulaglutide [Trulicity] 3 mg SQ .WEEKLY 04/13/21 [History] EPINEPHrine [Epipen 2-Jose A] 0.3 mg IM ASDIRECTED 04/13/21 [History] allopurinoL [Zyloprim] 100 mg PO DAILY 04/13/21 [History] Clopidogrel [Plavix] 75 mg PO DAILY 06/13/21 [History] Insulin Lispro [HumaLOG] 28 unit SQ ASDIRECTED 06/13/21 [History] Magnesium Oxide 400 mg PO BEDTIME 06/13/21 [History] Ezetimibe 10 mg PO DAILY 06/14/21 [History] Metoprolol Succinate [Toprol XL] 25 mg PO DAILY 06/14/21 [History] Montelukast Sodium 10 mg PO DAILY 06/14/21 [History] Multivitamin 1 tab PO DAILY 06/14/21 [History] Pantoprazole 40 mg PO ACBREAKFAST 06/14/21 [History] amLODIPine [Norvasc] 2.5 mg PO DAILY 06/14/21 [History] dexAMETHasone [Dexamethasone] 4 mg PO DAILY #10 tablet 06/25/21 [Rx] Patient Handouts: Hypoxia, COVID-19 - Discharge Summary/Plan Comment DC Time >30 min.: No Total # of Minutes for Discharge Time: 20 - Patient Data Vitals - Most Recent: Last Vital Signs Temp 94.9 F L 06/25/21 01:10 Pulse 89 06/25/21 08:09 Resp 16 06/25/21 07:33 BP 122/63 06/25/21 08:09 Pulse Ox 90 L 06/25/21 07:33 Weight - Most Recent: 263 lb I&O - Last 24 hours: Intake & Output 06/24/21 06/25/21 06/25/21 22:59 06:59 14:59 Intake Total 500 1800 Balance 500 1800 Lab Results - Last 24 hrs: Laboratory Results - last 24 hr 06/24/21 06/24/21 06/25/21 Range/Units 11:27 16:41 07:20 POC Glucose 246 H 291 H 227 H (74-106) mg/dL Med Orders - Current: Current Medications Acetaminophen (Acetaminophen 325 Mg Tab) 650 mg PO Q4H PRN PRN Reason: Pain (Mild 1-3)/fever Last Admin: 06/18/21 10:58 Dose: 650 mg Documented by: Al Hydroxide/Mg Hydroxide (Aluminum Hydroxide/Magnesium Hydroxide/Simethicone Susp 30 Ml Cup) 30 ml PO Q4H PRN PRN Reason: Indigestion Albuterol (Albuterol 8 Gm Inhaler) 0 gm INH Q2H PRN PRN Reason: Shortness of Breath Last Admin: 06/18/21 11:33 Dose: 2 puff Documented by: Albuterol/Ipratropium (Albuterol/Ipratropium 4 Gm Inhalation [place]) 0 gm INH QID [facility] Last Admin: 06/25/21 07:21 Dose: 2 puff Documented by: Allopurinol (Allopurinol 100 Mg Tab) 100 mg PO DAILY [facility] Last Admin: 06/25/21 08:09 Dose: 100 mg Documented by: Amlodipine Besylate (Amlodipine 5 Mg Tab) 2.5 mg PO DAILY [facility] Last Admin: 06/25/21 08:07 Dose: 2.5 mg Documented by: Aspirin (Aspirin 81 Mg Tab.Ec) 81 mg PO DAILY [facility] Last Admin: 06/25/21 08:06 Dose: 81 mg Documented by: Azelastine HCl (Azelastine Nasal Soln 30 Ml [place] Bottle) 0 ml NASBOTH BID [facility] Last Admin: 06/25/21 08:06 Dose: 2 spray Documented by: Benzonatate (Benzonatate 100 Mg Cap) 100 mg PO TID PRN PRN Reason: Cough Last Admin: 06/23/21 20:01 Dose: 100 mg Documented by: Calcium Carbonate/Glycine (Calcium Carbonate 500 Mg Tab.Chew) 1,000 mg PO Q2H PRN PRN Reason: Indigestion Last Admin: 06/15/21 16:16 Dose: 1,000 mg Documented by: Cholecalciferol (Cholecalciferol (Vitamin D3) 25 Mcg Tab) 25 mcg PO DAILY [facility] Last Admin: 06/25/21 08:09 Dose: 25 mcg Documented by: Clopidogrel Bisulfate (Clopidogrel 75 Mg Tab) 75 mg PO DAILY [facility] Last Admin: 06/25/21 08:09 Dose: 75 mg Documented by: Dexamethasone (Dexamethasone 2 Mg Tab) 4 mg PO DAILY [facility] Stop: 06/27/21 09:01 Last Admin: 06/25/21 08:06 Dose: 4 mg Documented by: Dextrose/Water (50% Dextrose In Water 50 Ml Syringe) 50 ml IVPUSH ASDIRECTED PRN PRN Reason: Hypoglycemia Ezetimibe (Ezetimibe 10 Mg Tab) 10 mg PO DAILY [facility] Last Admin: 06/25/21 08:09 Dose: 10 mg Documented by: Enoxaparin Sodium (Enoxaparin 40 Mg/0.4 Ml Syringe) 40 mg SUBCUT Q24H [facility] Last Admin: 06/24/21 14:31 Dose: 40 mg Documented by: Glucagon (Glucagon,Human Recombinant 1 Mg Vial) 1 mg IM ASDIRECTED PRN PRN Reason: Hypoglycemia Guaifenesin (Guaifenesin 600 Mg Tab.Er) 600 mg PO TID [facility] Last Admin: 06/25/21 08:07 Dose: 600 mg Documented by: Guaifenesin/Dextromethorphan (Guaifenesin/Dextromethorphan 100-10 Mg/5 Ml Soln 10 Ml Cup) 10 ml PO Q4H PRN PRN Reason: Cough Last Admin: 06/23/21 20:01 Dose: 10 ml Documented by: Insulin Glargine (Insulin Glargine,Human Rec. Analog 100 Units/Ml 3 Ml Pen) 74 units SUBCUT BEDTIME [facility] Last Admin: 06/24/21 20:51 Dose: 74 units Documented by: Insulin Glargine (Insulin Glargine,Human Rec. Analog 100 Units/Ml 3 Ml Pen) 46 units SUBCUT QAM [facility] Last Admin: 06/25/21 08:10 Dose: 46 units Documented by: Insulin Human Lispro (Insulin Lispro 100 Unit/Ml 3 Ml Kwikpen) 0 unit SUBCUT QIDACANDBED [facility]; Protocol Last Admin: 06/25/21 07:27 Dose: 5 units Documented by: Insulin Human Lispro (Insulin Lispro 100 Unit/Ml 3 Ml Kwikpen) 28 unit SUBCUT TIDMEALS [facility] Last Admin: 06/25/21 07:28 Dose: 28 units Documented by: Lorazepam (Lorazepam 2 Mg/Ml Sdv) 0.5 mg IVPUSH Q4H PRN PRN Reason: Nausea/Vomiting Magnesium Hydroxide (Magnesium Hydroxide 400 Mg/5 Ml Susp 30 Ml Cup) 30 ml PO Q12H PRN PRN Reason: Constipation Magnesium Oxide (Magnesium Oxide 400 Mg Tab) 400 mg PO BEDTIME [facility] Last Admin: 06/24/21 20:53 Dose: 400 mg Documented by: Melatonin (Melatonin 3 Mg Tab) 9 mg PO BEDTIME PRN PRN Reason: Sleep Last Admin: 06/20/21 23:09 Dose: 9 mg Documented by: Metoprolol Succinate (Metoprolol Succinate 25 Mg Tab.Er) 25 mg PO DAILY [facility] Last Admin: 06/25/21 08:09 Dose: 25 mg Documented by: Mometasone Furoate (Mometasone Furoate Nasal [place] 17 Gm Canister) 0 gm NASBOTH BID [facility] Last Admin: 06/25/21 08:07 Dose: 2 spray Documented by: Mometasone Furoate/Formoterol Fumar (Formoterol/Mometasone 200-5 Mcg 8.8 Gm Inhaler) 2 puff IH BIDRT [facility] Last Admin: 06/25/21 07:26 Dose: 2 puff Documented by: Montelukast Sodium (Montelukast 10 Mg Tab) 10 mg PO DAILY [facility] Last Admin: 06/25/21 08:09 Dose: 10 mg Documented by: Ondansetron HCl (Ondansetron 4 Mg/2 Ml Sdv) 4 mg IV Q6H PRN PRN Reason: Nausea/Vomiting Ondansetron HCl (Ondansetron 4 Mg Tab.Dis) 4 mg PO Q6H PRN PRN Reason: Nausea able to take PO Last Admin: 06/21/21 00:43 Dose: 4 mg Documented by: Pantoprazole Sodium (Pantoprazole 40 Mg Tab.Cr) 40 mg PO ACBREAKFAST [facility] Last Admin: 06/25/21 07:30 Dose: 40 mg Documented by: Kike 3mg 0 each SUBCUT We@0900 [facility] Last Admin: 06/21/21 11:39 Dose: 1 each Documented by: Ramipril (Ramipril 2.5 Mg Cap) 5 mg PO DAILY [facility] Last Admin: 06/25/21 08:05 Dose: 5 mg Documented by: Ropinirole HCl (Ropinirole 0.5 Mg Tab) 0.5 mg PO BEDTIME [facility] Last Admin: 06/24/21 20:53 Dose: 0.5 mg Documented by: Senna/Docusate Sodium (Docusate Sodium/Sennosides 50-8.6 Mg Tab) 1 tab PO BID PRN PRN Reason: Constipation Discontinued Medications Acetaminophen (Acetaminophen 325 Mg Tab) 650 mg PO Q4H PRN PRN Reason: Fever Greater Than 101 Last Admin: 06/13/21 13:47 Dose: 650 mg Documented by: Azithromycin (Azithromycin 250 Mg Tab) 500 mg PO DAILY [facility] Stop: 06/18/21 09:01 Last Admin: 06/18/21 08:47 Dose: 500 mg Documented by: Dexamethasone (Dexamethasone 4 Mg/Ml Sdv) 6 mg IVPUSH DAILY [facility] Stop: 06/22/21 09:01 Last Admin: 06/13/21 13:48 Dose: 6 mg Documented by: Dexamethasone (Dexamethasone 4 Mg/Ml Sdv) 6 mg IVPUSH Q24H [facility] Stop: 06/22/21 14:01 Last Admin: 06/22/21 14:39 Dose: 6 mg Documented by: Enoxaparin Sodium (Enoxaparin 40 Mg/0.4 Ml Syringe) 40 mg SUBCUT DAILY [facility] Last Admin: 06/13/21 13:57 Dose: 40 mg Documented by: Furosemide (Furosemide 40 Mg/4 Ml Vial) 40 mg IVPUSH NOW ONE Stop: 06/18/21 12:26 Last Admin: 06/18/21 13:24 Dose: 40 mg Documented by: Remdesivir 200 mg/ Sodium (Chloride) 250 mls @ 250 mls/hr IV ONETIME ONE Stop: 06/13/21 14:14 Last Admin: 06/13/21 13:51 Dose: 250 mls/hr Documented by: Remdesivir 100 mg/ Sodium (Chloride) 100 mls @ 100 mls/hr IV Q24H [facility] Stop: 06/17/21 14:59 Last Admin: 06/17/21 13:08 Dose: 100 mls/hr Documented by: Insulin Human Lispro (Insulin Lispro 100 Unit/Ml 3 Ml Kwikpen) 18 unit SUBCUT T IDMEALS [facility] Last Admin: 06/14/21 08:43 Dose: 18 units Documented by: Insulin Human Lispro (Insulin Lispro 100 Unit/Ml 3 Ml Kwikpen) 12 unit SUBCUT ONETIME ONE Stop: 06/23/21 16:49 Last Admin: 06/23/21 17:18 Dose: 12 units Documented by: Patient Own Medication (Patient's Own Medication 1 Each) 0 each SUBCUT .WEEKLY IVANA - Exam General: Reports: Alert, Oriented, Cooperative, No Acute Distress Lungs: Reports: Clear to Auscultation, Normal Respiratory Effort, Decreased Breath Sounds Cardiovascular: Reports: Regular Rate, Regular Rhythm, No Murmurs GI/Abdominal Exam: Soft, Non-Tender, No Organomegaly, No Distention Extremities: Non-Tender, No Pedal Edema
[2021-06-25] MEDS: Enoxaparin 40 MG/0.4 ML Syringe SUBCUT SCH (12:56)
== END 2021-06-25 13:30 | disposition home or self-care (01) | DRG 177 ==
LOC: JP.ED 11:46 → JP.2SS 16:34
PROVIDERS: ADMIT Internal Medicine; ATTEND Hospitalist
PROC: XW033E5 Introduction of Remdesivir Anti-infective into Peripheral Vein, Percutaneous Approach, New Technology Group 5 (ICD-10-PCS; principal; 2021-06-13)
PROC: XW0DXM6 Introduction of Baricitinib into Mouth and Pharynx, External Approach, New Technology Group 6 (ICD-10-PCS; 2021-06-13)
PROC: 5A0945A Assistance with Respiratory Ventilation, 24-96 Consecutive Hours, High Flow/Velocity Cannula (ICD-10-PCS; 2021-06-13)
PROC: 3E0333Z Introduction of Anti-inflammatory into Peripheral Vein, Percutaneous Approach (ICD-10-PCS; 2021-06-13)
PROC: 8E0ZXY6 Isolation (ICD-10-PCS; 2021-06-13)
PROC: 3E0DX3Z Introduction of Anti-inflammatory into Mouth and Pharynx, External Approach (ICD-10-PCS; 2021-06-25)
DX: U07.1 COVID-19 (principal); J12.82 Pneumonia due to coronavirus disease 2019; J96.01 Acute respiratory failure with hypoxia; J84.9 Interstitial pulmonary disease, unspecified; I25.10 Atherosclerotic heart disease of native coronary artery without angina pectoris; N18.30 Chronic kidney disease, stage 3 unspecified; H54.7 Unspecified visual loss; G47.30 Sleep apnea, unspecified; M10.9 Gout, unspecified; M54.9 Dorsalgia, unspecified; G89.29 Other chronic pain; E11.9 Type 2 diabetes mellitus without complications; E66.9 Obesity, unspecified; Z86.16 Personal history of COVID-19; Z79.52 Long term (current) use of systemic steroids; Z79.82 Long term (current) use of aspirin; Z79.4 Long term (current) use of insulin; Z79.02 Long term (current) use of antithrombotics/antiplatelets; Z79.899 Other long term (current) drug therapy; Z86.19 Personal history of other infectious and parasitic diseases; Z98.49 Cataract extraction status, unspecified eye
CPT/HCPCS: 36415; 71045 ×2; 80048; 80076; 83605; 84145; 85025; 85379; 86140; 99285; A9270; J1100; J1650; J7050; 80053; 82947; 84132; 85027; 94640; 94667; 94762; 99223; 99232; 99233; 99238; J1815; J1815-GY; J1940; J8540

== ENCOUNTER 2024-04-24 07:49 | Day surgery (SDC) | payer MEDICARE ==
[2024-04-24] MEDS ORDERED: Propofol 200 MG/20 ML SDV ONE ×3 (08:34→10:06)
[2024-04-24] MEDS ORDERED: fentaNYL 50 MCG/ML SDV ONE (08:34)
[2024-04-24] MEDS: Sodium Chloride 0.9% 1,000 ML IV SCH (08:37)
[2024-04-24 11:20] VITALS: BP 163/73; PULSE 56
== END 2024-04-24 11:23 | disposition home or self-care (01) ==
LOC: JP.SDS 07:49
PROVIDERS: ATTEND Surgery
DX: Z12.11 Encounter for screening for malignant neoplasm of colon (principal); K21.9 Gastro-esophageal reflux disease without esophagitis; I12.9 Hypertensive chronic kidney disease with stage 1 through stage 4 chronic kidney disease, or unspecified chronic kidney disease; E11.22 Type 2 diabetes mellitus with diabetic chronic kidney disease; N18.30 Chronic kidney disease, stage 3 unspecified; I25.10 Atherosclerotic heart disease of native coronary artery without angina pectoris; J45.909 Unspecified asthma, uncomplicated; Z95.1 Presence of aortocoronary bypass graft; G47.33 Obstructive sleep apnea (adult) (pediatric)
CPT/HCPCS: 00811-QZ; 88305; J2704; J3010; J7030